=== PATIENT | male | born 1950 | race Caucasian/White ===

== ENCOUNTER → 2016-06-07 | Outpatient (REF) | payer BC ==
[~2016-06-07] MED LIST: /AUGM875TA; ACET65TA; CLOTRIMAZOLE 1%; IBUP800T; LASI20TA; LEVA750T; VASO5TAB; VICO5TAB; [UNRECOGNIZED DRUG - OTHER]
[2016-06-07 13:50] LABS: ALBUMIN 3.9 GM/DL (3.2-5.2); ALBUMIN/GLOBULIN RATIO 1.63 (1.00-1.93); ALKALINE PHOSPHATASE 84 U/L (45-117); ALT/SGPT 31 U/L (12-78); ANION GAP 7 MEQ/L (8-16); AST/SGOT 17 U/L (15-37); BILIRUBIN,TOTAL 0.9 MG/DL (0.2-1.0); BLOOD UREA NITROGEN 26 MG/DL (7-18); CALCIUM LEVEL 8.4 MG/DL (8.8-10.2); CARBON DIOXIDE LEVEL 30 MEQ/L (21-32); CHLORIDE LEVEL 104 MEQ/L (98-107); CREATININE FOR GFR 1.09 MG/DL (0.70-1.30); GLOMERULAR FILTRATION RATE > 60.0 (>49); GLUCOSE, FASTING 151 MG/DL (80-110); POTASSIUM SERUM 4.5 MEQ/L (3.5-5.1); SODIUM LEVEL 141 MEQ/L (136-145); TOTAL PROTEIN 6.3 GM/DL (6.4-8.2)
== END ==
LOC: M SFHCPLAZ 10:55
PROVIDERS: ATTEND Family Medicine
DX: E11.9 Type 2 diabetes mellitus without complications (principal)

== ENCOUNTER 2016-09-08 19:52 | Inpatient (IN) | payer BC, SELFPAY ==
[~2016-09-08] VITALS: Ht 188 cm; Wt 135.2 kg
[2016-09-08] MEDS ORDERED: BRIM1OPD OU (20:28)
[2016-09-08] MEDS ORDERED: ALBU17IN INH (20:28)
[2016-09-08] MEDS ORDERED: BREO1INH INH (20:28)
[2016-09-08] MEDS ORDERED: LISI20TA3 PO (20:28)
[2016-09-08] MEDS ORDERED: METF500T4 PO (20:28)
[2016-09-08] MEDS ORDERED: FLOM5CAP PO (20:28)
[2016-09-08] MEDS ORDERED: SIMV20TA2 PO (20:28)
[2016-09-08] MEDS ORDERED: MELO15TA4 PO (20:28)
[2016-09-08] MEDS ORDERED: BIMA01SOL OU (20:28)
[2016-09-08] MEDS: LATANOPROST 0.005% OPHTH SOLN 2.5 ML OU SCH (21:00)
[2016-09-08] MEDS: BRIMONIDINE 0.1% OPHTH SOLN 5 ML OU SCH (21:00)
[2016-09-08] MEDS ORDERED: methylPREDNISolone INJ 125 MG/2 ML VIAL (J2930) IV ONE (21:15)
[2016-09-08] MEDS ORDERED: NS 1,000 ML IV ONE (21:15)
[2016-09-08 21:23] LABS: BASO # 0.2 K/mm3 (0.0-0.2); BASO % 1.7 % (0.0-1.0); EOS # 0.1 K/mm3 (0.0-0.50); EOS % 0.7 % (0.0-3.0); LARGE UNSTAINED CELL # 0.3 K/mm3 (0.0-0.4); LARGE UNSTAINED CELL % 3.3 % (0.0-4.0); LYMPH # 1.3 K/mm3 (1.5-4.5); LYMPH % 13.8 % (24.0-44.0); MEAN CORPUSCULAR HEMOGLOBIN 30.9 pg (27.0-33.0); MEAN CORPUSCULAR HGB CONC 34.1 g/dl (32.0-36.5); MEAN CORPUSCULAR VOLUME 90.8 fl (80.0-96.0); MONO # 0.7 K/mm3 (0.0-0.8); MONO % 7.8 % (0.0-5.0); NEUTROPHILS # 6.9 K/mm3 (1.8-7.7); NEUTROPHILS % 72.8 % (36.0-66.0); PLATELET COUNT, AUTOMATED 220 k/mm3 (150-450); RED CELL DISTRIBUTION WIDTH 12.4 % (11.5-14.5); WHITE BLOOD COUNT 9.5 K/mm3 (4.0-10.0)
[2016-09-08] MEDS ORDERED: MELO7.5T6 PO (21:29)
[2016-09-08] MEDS ORDERED: VITA-130 PO (21:30)
[2016-09-08] MEDS ORDERED: VITMTA PO (21:30)
[2016-09-08] MEDS ORDERED: CALC600T21 PO (21:30)
[2016-09-08] MEDS ORDERED: ASPI81TA21 PO (21:30)
[2016-09-08 21:33] LABS: ANION GAP 7 MEQ/L (8-16); BLOOD UREA NITROGEN 14 MG/DL (7-18); CALCIUM LEVEL 9.2 MG/DL (8.8-10.2); CARBON DIOXIDE LEVEL 32 MEQ/L (21-32); CHLORIDE LEVEL 99 MEQ/L (98-107); CREATININE FOR GFR 1.06 MG/DL (0.70-1.30); GLOMERULAR FILTRATION RATE > 60.0 (>49); GLUCOSE, FASTING 114 MG/DL (80-110); POTASSIUM SERUM 4.2 MEQ/L (3.5-5.1); SODIUM LEVEL 138 MEQ/L (136-145)
[2016-09-08 21:52] LABS: ABG BASE EXCESS 1.1 (-2.0-2.0); ABG HCO3 23.9 MEQ/L (22.0-26.0); ABG PARTIAL PRESSURE CO2 32.7 mmHg (35.0-45.0); ABG PARTIAL PRESSURE O2 106.3 mmHg (75.0-100.0); ABG STANDARD HCO3 25.4 MEQ/L (22.0-26.0); ABG TOTAL CO2 24.9 MEQ/L (23.0-31.0); ABG pH (ARTERIAL) 7.481 UNITS (7.350-7.450)
[2016-09-08] MEDS: IPRATROPIUM 0.5MG/ALBUTEROL 2.5MG INH SOL UD 3ML (DUONEB)(J7620) NEB SCH ×2 (21:57→22:07)
[2016-09-08] MEDS ORDERED: ACETAMINOPHEN TAB 650MG DOSE (2X325MG) PO ONE (22:30)
[2016-09-08] MEDS ORDERED: PIPERACILLIN/TAZOBACTAM SOD 3.375 GM in D5W MINI-BAG PLUS 50 ML IV ONE (23:15)
[2016-09-09] MEDS ORDERED: ACETAMINOPHEN TAB 650MG DOSE (2X325MG) PO PRN (01:00)
[2016-09-09] MEDS ORDERED: ALBUTEROL 90 MCG/ACT 8GM HFA INHALER INH PRN (01:00)
--- NOTE | 2016-09-09 02:02 | HPEPDOC ---
General Date of Admission Sep 09, 2016 at 00:52 Primary Care Physician: Senthil Bach DO Resident Attending Physician: FRANSICO DOWNING MD Chief Complaint The patient is a 66-year-old male admitted with a reason for visit of Atrial Flutter/Hypoxia/Lobar Pneumonia. History of Present Illness 66-year-old male, history of COPD not on home oxygen, diabetes mellitus, hypertension. Glaucoma presented with shortness of breath. Shortness of breath for last 2 days associated with fever, chills, cough. No diarrhea or constipation. No hematuria or dysuria. The no open wound. No weight loss, diaphoresis, night sweats, no travel history. No sick contact Home Medications Scheduled (Lisinopril/Hydrochlorothi 20-25 mg) 1 Tab Tab, 1 TAB PO DAILY, (Reported) Ascorbic Acid (Vitamin C) 500 Mg Tab, 500 MG PO DAILY, (Reported) Aspirin (Aspir-Low) 81 Mg Tab, 81 MG PO DAILY, (Reported) Bimatoprost (Lumigan) 50 Drop/2.5 Ml Halina, 1 DROP OU QHS, (Reported) Brimonidine Tartrate 0.1% (Alphagan P) 100 Drop/5 Ml Soln, 1 DROP OU BID, ( Reported) Calcium Carbonate (Calcium) 600 Mg Tab, 600 MG PO DAILY, (Reported) Fluticasone/Vilanterol (Breo Ellipta 100-25 Mcg/INH) 1 Inh Inh, 1 PUFF INH DAILY , (Reported) Meloxicam (Meloxicam) 7.5 Mg Tab, 7.5 MG PO QPM, (Reported) TAKES WITH DINNER Metformin Hydrochloride (Metformin HCl ER) 500 Mg Tab, 2,000 MG PO QPM, ( Reported) TAKES WITH DINNER Multivitamins *[facility] STOCKED* (Thera M Plus *[facility] STOCKED*) 1 Tab Tab, 1 TAB PO DAILY, (Reported) Simvastatin (Simvastatin) 20 Mg Tab, 20 MG PO QHS, (Reported) Tamsulosin Hydrochloride (Flomax) 0.4 Mg Cap, 0.4 MG PO QPM, (Reported) TAKES WITH DINNER Scheduled PRN Albuterol Sulfate (Ventolin Hfa) 200 Puff/8 Gm Aers, 2 PUFFS INH Q4H PRN for WHEEZING, (Reported) Allergies Coded Allergies: Latex (Verified Allergy, Mild, rash, 09/08/16) Vancomycin (Unverified Allergy, Mild, RASH, 09/08/16) Past Medical History Medical History COPD, diabetes mellitus, hypertension, glaucoma Surgical History None Family History Significant Family History: No pertinent family hx Social History * Smoker: Denies Alcohol: Denies Drugs: denies Recent Travel/Sick Contacts: Denies: Recent travel, Recent sick contacts Psychosocial History: No pertinent psych hx Review of Symptoms Constitutional: Reports: Chills, Fever, Denies: Night Sweats Eyes: Denies: Pain, Vision change ENT: Denies: Head Aches, Ear Pain, Dysphagia Skin: Denies: Rash, Lesions, Breakdown Pulmonary: Reports: Dyspnea, Cough Cardiovascular: Denies: Chest Pain, Palpitations, Orthopnea, Paroxysmal Noc. Dyspnea, Lt Headedness Gastrointestinal: Denies: Nausea, Vomiting, Abdominal Pain, Diarrhea Genitourinary: Denies: Dysuria, Frequency, Incontinence, Retention Hematologic: Denies: Bruising, Bleeding Excessively Musculoskeletal: Denies: Neck Pain, Back Pain, Joint Pain, Muscle Pain, Spasms Neurological: Denies: Weakness, Numbness, Change in speech, Confusion Psych: Reports: Mood Normal, Denies: Depression, Memory Issues Physical Examination General Exam: Positive: Alert, Moderate Distress Eye Exam: Positive: PERRLA, Conjunctiva & lids normal, EOMI, Negative: Sclera icteric ENT Exam: Positive: Atraumatic, Mucous membr. moist/pink, Pharynx Normal Neck Exam: Positive: Supple, Negative: JVD, thyromegaly Chest Exam: Positive: Rhonchi, Wheezing, Diminished Heart Exam: Positive: Rate Normal, Regular Rhythm, Normal S1, Normal S2, Negative: Murmurs, Rubs Telemetry: Positive: No significant arrhythmia Abdomen Exam: Positive: Normal bowel sounds, Soft, Negative: Tenderness, Hepatospenomegaly Extremity Exam: Positive: Normal pulses, Negative: Clubbing, Cyanosis, Edema Skin Exam: Positive: Nl turgor and temperature, Negative: Breakdown, Lesion Neuro Exam: Positive: Normal Gait, Normal Speech, Cranial Nerves 3-12 NL, Reflexes 2+ Psych Exam: Positive: Mental status NL, Mood NL, Oriented x 3 Vital Signs Vital Signs Date Time Temp Pulse Resp B/P (MAP) Pulse Ox O2 Delivery O2 Flow Rate FiO2 09/09/16 00:37 20 93 Nasal Cannula 3.0 09/09/16 00:28 98.6 09/09/16 00:21 102 Laboratory Data Labs 24H Laboratory Tests 2 09/08/16 20:19: White Blood Count 9.5, Red Blood Count 4.85, Hemoglobin 15.0, Hematocrit 44.0, Mean Corpuscular Volume 90.8, Mean Corpuscular Hemoglobin 30.9, Mean Corpuscular Hemoglobin Concent 34.1, Red Cell Distribution Width 12.4, Platelet Count 220, Neutrophils (%) (Auto) 72.8H, Lymphocytes (%) (Auto) 13.8L, Monocytes (%) (Auto) 7.8H, Eosinophils (%) (Auto) 0.7, Basophils (%) (Auto) 1.7H , Neutrophils # (Auto) 6.9, Lymphocytes # (Auto) 1.3L, Monocytes # (Auto) 0.7, Eosinophils # (Auto) 0.1, Basophils # (Auto) 0.2, Large Unclassified Cells % 3.3 , Large Unclassified Cells # 0.3, Anion Gap 7L, Glomerular Filtration Rate > 60.0, Blood Urea Nitrogen 14, Creatinine 1.06, Sodium Level 138, Potassium Level 4.2, Chloride Level 99, Carbon Dioxide Level 32, Calcium Level 9.2, Total Creatine Kinase 294, Creatine Kinase MB 4.1H, Creatine Kinase MB Relative Index 1.39, Troponin I 0.03, B-Type Natriuretic Peptide 61.1 09/08/16 21:46: Blood Gas Bicarbonate Standard 25.4, Arterial Blood pH 7.481H, Arterial Blood Partial Pressure CO2 32.7L, Arterial Blood Partial Pressure O2 106.3H, Arterial Blood Total CO2 24.9, Arterial Blood HCO3 23.9, Arterial Blood Base Excess 1.1, Arterial Blood Oxygen Saturation 98.0 CBC/BMP Laboratory Tests 09/08/16 20:19 Red Blood Count 4.85, Mean Corpuscular Volume 90.8, Mean Corpuscular Hemoglobin 30.9, Mean Corpuscular Hemoglobin Concent 34.1, Red Cell Distribution Width 12.4 , Neutrophils (%) (Auto) 72.8 H, Lymphocytes (%) (Auto) 13.8 L, Monocytes (%) ( Auto) 7.8 H, Eosinophils (%) (Auto) 0.7, Basophils (%) (Auto) 1.7 H, Neutrophils # (Auto) 6.9, Lymphocytes # (Auto) 1.3 L, Monocytes # (Auto) 0.7, Eosinophils # (Auto) 0.1, Basophils # (Auto) 0.2, Calcium Level 9.2, Total Creatine Kinase 294 Microbiology Microbiology 09/09/16 Blood Culture, Received Pending 09/08/16 Blood Culture, Received Pending Assessment/Plan 66-year-old male, history of COPD, hypertension, glaucoma, presented with the shortness of breath for past 2 days, likely due to COPD exacerbation Problems (1) Atrial flutter Status: Acute Problem Text: Rate controlled with the beta gisselle chest to_1, and day Goldenson with aspirin. We will get cardiology consult by day team hospitalist tomorrow (2) Lobar pneumonia Status: Acute Problem Text: The start IV Rocephin and azithromycin (3) Hypoxia Status: Acute Problem Text: Due to COPD exacerbation. Continue with oxygen, DuoNeb and Solu- Medrol 40 mg IV every 6 Plan / VTE VTE Prophylaxis Ordered?: Yes Plan Diet: Continue Current Activity: Continue Current Anticipated Discharge: Home LI LILLY MD Sep 09, 2016 02:01
[2016-09-09 02:05] VITALS: BP 122/75
[2016-09-09] MEDS ORDERED: DEXTROSE 50% 50 ML SYRINGE IV PRN (02:30)
[2016-09-09] MEDS ORDERED: GLUCAGON FOR INJ 1 MG VIAL (J1610) SC PRN (02:30)
[2016-09-09] MEDS ORDERED: GLUCOSE 4 GM CHEW TABLET PO PRN (02:30)
[2016-09-09] MEDS: METOPROLOL TART 25 MG TABLET PO SCH ×3 (03:00→20:48)
[2016-09-09] MEDS: SIMVASTATIN 20 MG TAB PO SCH ×2 (03:00→20:46)
[2016-09-09] MEDS: AZITHROMYCIN INJ 500 MG, VIAL MATE ADAPTER 1 EACH in D5W 250 ML IV SCH (03:00)
[2016-09-09] MEDS: methylPREDNISolone INJ 40 MG/1 ML VIAL (J2920) IV SCH ×4 (03:00→21:23)
[2016-09-09] MEDS: TAMSULOSIN 0.4 MG CAP PO SCH ×2 (03:00→17:19)
[2016-09-09] MEDS: HumaLOG INSULIN (NovoLOG) PER UNIT SC SCH ×5 (03:02→20:46)
[2016-09-09] MEDS ORDERED: SLF 3 ML SYR IV PRN (03:45)
[2016-09-09 04:24] VITALS: BP 137/88
[2016-09-09] MEDS: cefTRIAXone SOD 1 GM in D5W MINI-BAG PLUS 50 ML IV SCH (05:32)
[2016-09-09] MEDS: SLF 3 ML SYR IV SCH ×3 (05:32→21:24)
--- NOTE | 2016-09-09 07:31 | ECGEPIP ---
Stationary ECG Study [facility] - ED Test Date: 2016-09-08 Pat Name: TRACIE LOZA Department: Room: [place] [address] Gender: M Actuarial Technician: daniel : 1950 Requested By: CYN Kim Order Number: [id number] Reading MD: Darnell Pepe Measurements Intervals [place] Rate: 121 P: [place]: 0 QRS: 63 QRSD: 105 T: 26 QT: 279 QTc: 397 Interpretive Statements ATRIAL FLUTTER WITH RAPID VENTRICULAR RESPONSE NO PRIORS Electronically Signed On 09-09-2016 7:30:42 EDT by Darnell Pepe
[2016-09-09 07:35] VITALS: BP 131/74
[2016-09-09] MEDS: MULTIVITAMINS/MINERALS THERAP 1 TAB PO SCH (08:20)
[2016-09-09] MEDS: ASCORBIC ACID 500 MG TAB PO SCH (08:20)
[2016-09-09] MEDS: ASPIRIN 81 MG ENTERIC TAB PO SCH (08:20)
[2016-09-09] MEDS: BRIMONIDINE 0.1% OPHTH SOLN 5 ML OU SCH ×2 (08:21→20:45)
[2016-09-09] MEDS: ADVAIR DISKUS 250/50 INH PWD INH SCH ×2 (09:00→20:20)
--- NOTE | 2016-09-09 09:15 | REP ---
CHEST PA AND LATERAL: 09/08/2016. COMPARISON: 06/06/2014, 06/18/2010. CLINICAL HISTORY: Dyspnea, cough. FINDINGS: Two views show the lungs well inflated. There is an old granuloma in the right mid lung zone. Some right lower lobe infrahilar patchy infiltrate or atelectasis is noted. Some basilar fibrotic changes are seen. I see no definite effusion or lateral pleural thickening. No apical scarring or pneumothorax. Heart not enlarged. Pulmonary arteries are mildly prominent. There are calcified nodes at the right hilum. Airway intact. Aorta mildly tortuous but normal for age. Bony thorax shows no compression deformity. IMPRESSION: 1. Patchy right base atelectasis or infiltrate in the lower lobe without pleural effusion or dense consolidation with air bronchograms. 2. No cardiomegaly or edema. There is old granulomatous disease. Signed by Jesse Espinosa MD 09/09/2016 10:52 A
[2016-09-09] MEDS: IPRATROPIUM 0.5MG/ALBUTEROL 2.5MG INH SOL UD 3ML (DUONEB)(J7620) NEB SCH ×4 (10:23→22:25)
[2016-09-09 12:00] VITALS: BP 138/77
--- NOTE | 2016-09-09 14:26 | IPNPDOC ---
Text Note Date of Service The patient was seen on 09/09/16. NOTE Subjective: Patient is a 66 year old male with a PMHx of COPD (not on home O2), NIDDM2, HTN and Glaucoma who presented to the ER with complaints of shortness of brath for 2 days duration. He notes that he has been having associated productive cough. He did note fever and chills at home. He was admitted for COPD exacerbation and was placed on telemetry. Patient was seen and examined at the bedside. Currently he notes improvement in his breathing. He denies any chest pain or palpitations. Denies any nausea, vomiting or sweating. Objective: Vitals (See below) General: Lying in bed, no acute distress, comfortable, AAOx3 HEENT: NC, AT CVS: Regular rate, +S1S2 Lungs: Fair air entry b/l, mild expiratory wheezing Abdomen: Soft, ND, NT, +BSx4 Extremities: +PPx4, - Edema, - Calf tenderness Assessment and plan: 1. Shortness of breath - likely 2/2 acute COPD exacerbation and community acquired pneumonia - Presented with shortness of breath, productive cough and wheezing - Physical this morning revealed expiratory wheezing - Labs unrevealing - CXR 09/09: patchy opacity at RLL - s/p Solumedrol loading - c/w Ceftriaxone, Azithromycin (Day #1) and Solumedrol - c/w Duoneb PRN and Advair 2. Possible atrial flutter - Noted to have flutter on initial EKG - No reported chest pain, palpitations, nausea or vomiting - Physical reveals controlled rate - Troponin trended; no elevation - s/p Diltiazem in ER - Will c/w telemetry monitoring - Will repeat EKG - c/w Metoprolol 25 BID - Will start Eliquis 5mg PO BID 3. NIDDM2 - c/w ISS 4. HTN - BP well controlled - c/w Lisinopril and HCTZ with holding parameters 5. DLP - c/w Simvastatin 6. BPH - c/w Tamsulosin 7. Glaucoma - allow home medication use 8. GI prophylaxis - will start Protonix 9. DVT prophylaxis - will start Eliquis VS,Fishbone, I+O VS, Fishbone, I+O Laboratory Tests 09/08/16 20:19 Red Blood Count 4.85, Mean Corpuscular Volume 90.8, Mean Corpuscular Hemoglobin 30.9, Mean Corpuscular Hemoglobin Concent 34.1, Red Cell Distribution Width 12.4 , Neutrophils (%) (Auto) 72.8 H, Lymphocytes (%) (Auto) 13.8 L, Monocytes (%) ( Auto) 7.8 H, Eosinophils (%) (Auto) 0.7, Basophils (%) (Auto) 1.7 H, Neutrophils # (Auto) 6.9, Lymphocytes # (Auto) 1.3 L, Monocytes # (Auto) 0.7, Eosinophils # (Auto) 0.1, Basophils # (Auto) 0.2, Calcium Level 9.2, Total Creatine Kinase 294 Vital Signs Date Time Temp Pulse Resp B/P (MAP) Pulse Ox O2 Delivery O2 Flow Rate FiO2 09/09/16 12:00 97.2 72 18 138/77 (97) 97 Room Air 09/09/16 03:15 1.0 FRANSICO DOWNING MD Sep 09, 2016 14:26
[2016-09-09] MEDS ORDERED: APIXABAN 5 MG TAB (ELIQUIS) PO ONE (15:30)
[2016-09-09] MEDS: LISINOPRIL 20 MG TAB PO SCH (15:49)
[2016-09-09] MEDS: PANTOPRAZOLE 40MG TAB (PROTONIX) PO SCH (15:49)
[2016-09-09] MEDS: hydroCHLOROthiazide 12.5 MG CAPSULE PO SCH (15:50)
[2016-09-09 16:00] VITALS: BP 142/80
[2016-09-09 16:00] LABS: FREE T4 1.18 NG/DL (0.76-1.46)
[2016-09-09] MEDS: LATANOPROST 0.005% OPHTH SOLN 2.5 ML OU SCH (20:44)
[2016-09-09 20:50] VITALS: BP 115/76
[2016-09-10 00:56] VITALS: BP 113/60
--- NOTE | 2016-09-10 01:15 | ECGEPIP ---
Stationary ECG Study [facility] Test Date: 2016-09-09 Pat Name: TRACIE LOZA Department: Room: [place] [address] Gender: M Area Counselor: JESUS : 1950 Requested By: FRANSICO DOWNING Order Number: [id number] Reading MD: Buck Wan Measurements Intervals [place] Rate: 77 P: [place]: 0 QRS: 37 QRSD: 104 T: 70 QT: 371 QTc: 421 Interpretive Statements ATRIAL FLUTTER/TACHYCARDIA ABNORMAL RHYTHM ECG Last tracing on 09/08/2016 at 20:53:26, no significant changes Electronically Signed On 09-10-2016 1:15:33 EDT by Buck Wan
[2016-09-10] MEDS: IPRATROPIUM 0.5MG/ALBUTEROL 2.5MG INH SOL UD 3ML (DUONEB)(J7620) NEB SCH ×6 (03:34→23:12)
[2016-09-10 04:43] VITALS: BP 133/76
[2016-09-10] MEDS: AZITHROMYCIN INJ 500 MG, VIAL MATE ADAPTER 1 EACH in D5W 250 ML IV SCH (04:45)
[2016-09-10] MEDS: methylPREDNISolone INJ 40 MG/1 ML VIAL (J2920) IV SCH ×3 (04:45→21:04)
[2016-09-10 05:05] LABS: MEAN CORPUSCULAR VOLUME 91.1 fl (80.0-96.0); RED CELL DISTRIBUTION WIDTH 12.5 % (11.5-14.5); WHITE BLOOD COUNT 12.5 K/mm3 (4.0-10.0)
[2016-09-10 05:24] LABS: ALBUMIN 3.3 GM/DL (3.2-5.2); ALKALINE PHOSPHATASE 88 U/L (45-117); ALT/SGPT 24 U/L (12-78); ANION GAP 6 MEQ/L (8-16); AST/SGOT 15 U/L (15-37); BILIRUBIN,TOTAL 0.5 MG/DL (0.2-1.0); CALCIUM LEVEL 8.5 MG/DL (8.8-10.2); CARBON DIOXIDE LEVEL 29 MEQ/L (21-32); CHLORIDE LEVEL 104 MEQ/L (98-107); GLOMERULAR FILTRATION RATE > 60.0 (>49); GLUCOSE, FASTING 249 MG/DL (80-110); POTASSIUM SERUM 4.1 MEQ/L (3.5-5.1); SODIUM LEVEL 139 MEQ/L (136-145); TOTAL PROTEIN 6.6 GM/DL (6.4-8.2)
[2016-09-10 05:44] LABS: BLOOD UREA NITROGEN 30 MG/DL (7-18)
[2016-09-10] MEDS: SLF 3 ML SYR IV SCH ×3 (06:00→21:05)
[2016-09-10] MEDS: cefTRIAXone SOD 1 GM in D5W MINI-BAG PLUS 50 ML IV SCH (06:11)
[2016-09-10] MEDS: ADVAIR DISKUS 250/50 INH PWD INH SCH ×2 (07:08→20:26)
[2016-09-10 08:00] VITALS: BP 119/58
[2016-09-10] MEDS: MULTIVITAMINS/MINERALS THERAP 1 TAB PO SCH (08:30)
[2016-09-10] MEDS: HumaLOG INSULIN (NovoLOG) PER UNIT SC SCH ×4 (08:30→21:04)
[2016-09-10] MEDS: APIXABAN 5 MG TAB (ELIQUIS) PO SCH ×2 (08:31→21:05)
[2016-09-10] MEDS: PANTOPRAZOLE 40MG TAB (PROTONIX) PO SCH (08:31)
[2016-09-10] MEDS: LISINOPRIL 20 MG TAB PO SCH (08:31)
[2016-09-10] MEDS: hydroCHLOROthiazide 12.5 MG CAPSULE PO SCH (08:31)
[2016-09-10] MEDS: ASCORBIC ACID 500 MG TAB PO SCH (08:31)
[2016-09-10] MEDS: ASPIRIN 81 MG ENTERIC TAB PO SCH (08:31)
[2016-09-10] MEDS: METOPROLOL TART 25 MG TABLET PO SCH ×2 (08:31→21:05)
[2016-09-10] MEDS: BRIMONIDINE 0.1% OPHTH SOLN 5 ML OU SCH ×2 (08:32→21:05)
[2016-09-10] MEDS ORDERED: ELIQ5TAB PO (10:09)
[2016-09-10 12:00] VITALS: BP 138/74
--- NOTE | 2016-09-10 12:12 | ECHO ---
DATE OF PROCEDURE: 09/09/2016 DATE OF : 1950 AGE: 66 REFERRING PROVIDER: Dr. Octaviano Acosta PATIENT LOCATION: Room 3211. REASON FOR ECHOCARDIOGRAM: Shortness of breath, abnormal EKG. 2D MEASUREMENTS: IVS: 1.0 cm LV: 5.4 cm LVPW: 1.0 cm LA: 4.7 cm Aorta: 3.3 cm RV: 3.6 cm IVC: 2.7 cm DOPPLER MEASUREMENTS: Peak velocity across the aortic valve: 1.6 m/s Maximum tricuspid valve velocity: 2.0 m/s 2D COMMENTS: 1. Technically limited study due to poor acoustic window. 2. The ventricular size is normal as well as left ventricular wall thickness. Left ventricular systolic ejection fraction appeared to be normal with a left ventricular ejection fraction (LVEF) estimated at 55-60%. 3. Mildly enlarged left atrium. Normal right atrium in size. Normal right ventricle. There was an echogenic structure noted in the right atrium from unclear etiology, seen in limited views. 4. The atrial septum appeared to be normal without evidence of defect or shunt. 5. Normal aortic root. 6. No pericardial effusion seen. 7. Minimally calcified aortic valve with normal leaflet excursion. Normal mitral valve and tricuspid valve. The pulmonic valve and proximal pulmonary artery branches were not well visualized. 8. The inferior vena cava was mildly enlarged; central venous pressure might be elevated. DOPPLER: It detects trace mitral regurgitation, mild tricuspid regurgitation. IMPRESSION: 1. Normal global left ventricular systolic function. Assessment of the left ventricular diastolic function was limited in view of the underlying atrial flutter. 2. Aortic valve sclerosis without any stenosis or significant aortic regurgitation. 3. Isolated mildly dilated left atrium. There is probably trace mitral regurgitation. 4. Mild tricuspid regurgitation with a normal pulmonary artery systolic pressure. 5. The inferior vena cava (IVC) was mildly enlarged; central venous pressure might be elevated. 6. There was an echogenic structure in the right atrium in limited views and for this reason, I will recommend a limited echocardiogram with focus on the right atrium. MTDD
--- NOTE | 2016-09-10 12:34 | IPNPDOC ---
Text Note Date of Service The patient was seen on 09/10/16. NOTE Subjective: Patient is a 66 year old male with a PMHx of COPD (not on home O2), NIDDM2, HTN and Glaucoma who presented to the ER with complaints of shortness of brath for 2 days duration. He notes that he has been having associated productive cough. He did note fever and chills at home. He was admitted for COPD exacerbation and was placed on telemetry. Patient was seen and examined at the bedside. He notes that his breathing has improved, but not at baseline yet. Denies chest pain or palpitations. Objective: Vitals (See below) General: Lying in bed, no acute distress, comfortable, AAOx3 HEENT: NC, AT CVS: Regular rate, +S1S2 Lungs: Fair air entry b/l, mild expiratory wheezing Abdomen: Soft, ND, NT, +BSx4 Extremities: +PPx4, - Edema, - Calf tenderness Assessment and plan: 1. Shortness of breath - likely 2/2 acute COPD exacerbation and community acquired pneumonia - Presented with shortness of breath, productive cough and wheezing - Physical this morning revealed expiratory wheezing - Labs unrevealing - CXR 09/09: patchy opacity at RLL - s/p Solumedrol loading - c/w Ceftriaxone and Azithromycin (Day #2) - c/w Solumedrol, Duoneb PRN and Advair - Will begin to decrease dose of Solumedrol today 2. Atrial flutter - EKG on initial EKG was atrial flutter; repeat EKG reveals similar findings - No reported chest pain, palpitations, nausea or vomiting - Physical reveals controlled rate - Troponin trended; no elevation - Thyroid function noted; ECHO pending - s/p Diltiazem in ER - c/w telemetry monitoring - c/w rate control with Metoprolol 25 BID and anticoagulation with 5mg PO BID 3. NIDDM2 - c/w ISS 4. HTN - BP well controlled - c/w Lisinopril and HCTZ with holding parameters 5. DLP - c/w Simvastatin 6. BPH - c/w Tamsulosin 7. Glaucoma - allow home medication use 8. GI prophylaxis - c/w Protonix 9. DVT prophylaxis - c/w Eliquis VS,Fishbone, I+O VS, Fishbone, I+O Laboratory Tests 09/10/16 04:38 Red Blood Count 4.30, Mean Corpuscular Volume 91.1, Mean Corpuscular Hemoglobin 31.0, Mean Corpuscular Hemoglobin Concent 34.0, Red Cell Distribution Width 12.5 , Calcium Level 8.5 L, Aspartate Amino Transf (AST/SGOT) 15, Alanine Aminotransferase (ALT/SGPT) 24, Alkaline Phosphatase 88, Total Bilirubin 0.5, Total Protein 6.6, Albumin 3.3 Vital Signs Date Time Temp Pulse Resp B/P (MAP) Pulse Ox O2 Delivery O2 Flow Rate FiO2 09/10/16 08:31 120 119/58 09/10/16 08:00 98.2 19 90 Room Air 09/09/16 03:15 1.0 I&O- Last 24 Hours up to 6 AM 09/10/16 05:59 Intake Total 1935 ml Output Total 1350 ml Balance 585 ml FRANSICO DOWNING MD Sep 10, 2016 12:34
[2016-09-10 16:00] VITALS: BP 131/90
[2016-09-10] MEDS: TAMSULOSIN 0.4 MG CAP PO SCH (17:10)
[2016-09-10 20:00] VITALS: BP 142/82
[2016-09-10] MEDS: LATANOPROST 0.005% OPHTH SOLN 2.5 ML OU SCH (21:05)
[2016-09-10] MEDS: SIMVASTATIN 20 MG TAB PO SCH (21:05)
[2016-09-11] VITALS: BP 128/77
[2016-09-11] MEDS: IPRATROPIUM 0.5MG/ALBUTEROL 2.5MG INH SOL UD 3ML (DUONEB)(J7620) NEB SCH ×5 (03:42→20:00)
[2016-09-11 04:00] VITALS: BP 151/88
[2016-09-11] MEDS: AZITHROMYCIN INJ 500 MG, VIAL MATE ADAPTER 1 EACH in D5W 250 ML IV SCH (04:07)
[2016-09-11] MEDS: methylPREDNISolone INJ 40 MG/1 ML VIAL (J2920) IV SCH (04:07)
[2016-09-11 05:25] LABS: MEAN CORPUSCULAR HEMOGLOBIN 30.2 pg (27.0-33.0); MEAN CORPUSCULAR HGB CONC 33.4 g/dl (32.0-36.5); MEAN CORPUSCULAR VOLUME 90.5 fl (80.0-96.0); RED CELL DISTRIBUTION WIDTH 12.5 % (11.5-14.5); WHITE BLOOD COUNT 12.7 K/mm3 (4.0-10.0)
[2016-09-11] MEDS: SLF 3 ML SYR IV SCH ×3 (05:36→20:26)
[2016-09-11] MEDS: cefTRIAXone SOD 1 GM in D5W MINI-BAG PLUS 50 ML IV SCH (05:36)
[2016-09-11 05:45] LABS: ALBUMIN 3.1 GM/DL (3.2-5.2); ALBUMIN/GLOBULIN RATIO 1.03 (1.00-1.93); ALKALINE PHOSPHATASE 78 U/L (45-117); ALT/SGPT 32 U/L (12-78); ANION GAP 4 MEQ/L (8-16); AST/SGOT 25 U/L (15-37); BILIRUBIN,TOTAL 0.5 MG/DL (0.2-1.0); BLOOD UREA NITROGEN 32 MG/DL (7-18); CARBON DIOXIDE LEVEL 28 MEQ/L (21-32); CHLORIDE LEVEL 105 MEQ/L (98-107); CREATININE FOR GFR 0.95 MG/DL (0.70-1.30); GLOMERULAR FILTRATION RATE > 60.0 (>49); GLUCOSE, FASTING 222 MG/DL (80-110); POTASSIUM SERUM 4.5 MEQ/L (3.5-5.1); SODIUM LEVEL 137 MEQ/L (136-145); TOTAL PROTEIN 6.1 GM/DL (6.4-8.2)
[2016-09-11] MEDS: ADVAIR DISKUS 250/50 INH PWD INH SCH ×2 (07:37→19:47)
[2016-09-11 08:00] VITALS: BP 152/74
[2016-09-11] MEDS: MULTIVITAMINS/MINERALS THERAP 1 TAB PO SCH (08:07)
[2016-09-11] MEDS: BRIMONIDINE 0.1% OPHTH SOLN 5 ML OU SCH ×2 (08:07→20:24)
[2016-09-11] MEDS: ASPIRIN 81 MG ENTERIC TAB PO SCH (08:07)
[2016-09-11] MEDS: METOPROLOL TART 25 MG TABLET PO SCH ×2 (08:08→20:24)
[2016-09-11] MEDS: LISINOPRIL 20 MG TAB PO SCH (08:08)
[2016-09-11] MEDS: APIXABAN 5 MG TAB (ELIQUIS) PO SCH ×2 (08:08→20:24)
[2016-09-11] MEDS: PANTOPRAZOLE 40MG TAB (PROTONIX) PO SCH (08:08)
[2016-09-11] MEDS: ASCORBIC ACID 500 MG TAB PO SCH (08:08)
[2016-09-11] MEDS: hydroCHLOROthiazide 12.5 MG CAPSULE PO SCH (08:08)
[2016-09-11] MEDS: HumaLOG INSULIN (NovoLOG) PER UNIT SC SCH ×4 (08:09→20:25)
[2016-09-11] MEDS: predniSONE 20 MG TAB PO SCH ×2 (10:02→20:24)
[2016-09-11 12:00] VITALS: BP 134/80
--- NOTE | 2016-09-11 12:05 | IPNPDOC ---
Text Note Date of Service The patient was seen on 09/11/16. NOTE Subjective: Patient is a 66 year old male with a PMHx of COPD (not on home O2), NIDDM2, HTN and Glaucoma who presented to the ER with complaints of shortness of brath for 2 days duration. He notes that he has been having associated productive cough. He did note fever and chills at home. He was admitted for COPD exacerbation and was placed on telemetry. Patient was seen and examined at the bedside. His breathing has improved and will be transitioned to prednisone oral today. He notes that his cough is resolving. Objective: Vitals (See below) General: Lying in bed, no acute distress, comfortable, AAOx3 HEENT: NC, AT CVS: Regular rate, +S1S2 Lungs: Fair air entry b/l, mild expiratory wheezing Abdomen: Soft, ND, NT, +BSx4 Extremities: +PPx4, - Edema, - Calf tenderness Assessment and plan: 1. Shortness of breath - likely 2/2 acute COPD exacerbation and community acquired pneumonia - Presented with shortness of breath, productive cough and wheezing - Physical again reveals mild wheezing; still has not received in inhaled therapy - Labs unrevealing - CXR 09/09: patchy opacity at RLL - s/p Solumedrol loading - c/w Ceftriaxone and Azithromycin (Day #3) - c/w Solumedrol, Duoneb PRN and Advair - Will transition over to prednisone PO today; will evaluate for possible discharge today 2. Atrial flutter - EKG on initial EKG was atrial flutter; repeat EKG reveals similar findings - No reported chest pain, palpitations, nausea or vomiting - Physical reveals controlled rate - Troponin trended; no elevation - Thyroid function noted; ECHO normal LV systolic function - s/p Diltiazem in ER - c/w telemetry monitoring - c/w rate control with Metoprolol 25 BID and anticoagulation with 5mg PO BID 3. Echogenic structure in the right atrium - ECHO revealed structure in right atrium that has warranted additional imaging - Will re-evaluate today - Will discuss with Cardiology that reads echocardiogram 4. NIDDM2 - c/w ISS 5. HTN - BP well controlled - c/w Lisinopril and HCTZ with holding parameters 6. DLP - c/w Simvastatin 7. BPH - c/w Tamsulosin 8. Glaucoma - allow home medication use 9. GI prophylaxis - c/w Protonix 10. DVT prophylaxis - c/w Eliquis VS,Fishbone, I+O VS, Fishbone, I+O Laboratory Tests 09/11/16 05:00 Red Blood Count 4.23 L, Mean Corpuscular Volume 90.5, Mean Corpuscular Hemoglobin 30.2, Mean Corpuscular Hemoglobin Concent 33.4, Red Cell Distribution Width 12.5, Calcium Level 8.0 L, Aspartate Amino Transf (AST/SGOT) 25, Alanine Aminotransferase (ALT/SGPT) 32, Alkaline Phosphatase 78, Total Bilirubin 0.5, Total Protein 6.1 L, Albumin 3.1 L Vital Signs Date Time Temp Pulse Resp B/P (MAP) Pulse Ox O2 Delivery O2 Flow Rate FiO2 09/11/16 08:08 90 150/70 09/11/16 08:00 98.0 19 92 Room Air 09/09/16 03:15 1.0 I&O- Last 24 Hours up to 6 AM 09/11/16 05:59 Intake Total 2830 ml Output Total 2625 ml Balance 205 ml FRANSICO DOWNING MD Sep 11, 2016 12:05
[2016-09-11 16:00] VITALS: BP 142/83
[2016-09-11] MEDS: TAMSULOSIN 0.4 MG CAP PO SCH (17:05)
--- NOTE | 2016-09-11 19:44 | ECHO ---
DATE OF PROCEDURE:09/11/2016 REFERRING PHYSICIAN: Dr. Chase Nash. INDICATION: Atrial flutter suspicion for right atrial thrombus. Based on prior echocardiogram. No dimensions were obtained. FINDINGS: This is very limited echocardiogram focusing on right atrium. This patient just had a full two-dimensional echocardiogram on September 09, and it raised the suspicion for possible echogenic structure in the right atrium. Based on limited images today, the structure is again visualized. Unfortunately, even though this was focused exam the visualization is rather limited and there appears to be mobile echodensity that is adjacent to lateral wall of the right atrium and some of it seems to be very close to the tricuspid valve. Unfortunately due to limited resolution, I can not be more specific than that. It seems to have a red light qualities. In my opinion, this most likely represents Chiari network, much less likely there is a possibility of thrombus vegetation. Tricuspid valve otherwise appears intact. Inferior vena cava is normal size today. No Doppler interrogation was performed. CONCLUSIONS: 1. Very limited echocardiogram. 2. Mobile thread-like echodensity in the right atrium in my opinion most likely representing Chiari network, less likely thrombus or vegetation. COMMENT: Subacute bacterial endocarditis (SBE) prophylaxis is not recommended. If high clinical suspicion for endocarditis, then transesophageal echocardiogram should be performed. If there is no or very low suspicion for bacterial endocarditis, I would not pursue any further evaluation. The patient is already anticoagulated for atrial flutter.
[2016-09-11 20:00] VITALS: BP 142/73
[2016-09-11] MEDS: LATANOPROST 0.005% OPHTH SOLN 2.5 ML OU SCH (20:24)
[2016-09-11] MEDS: SIMVASTATIN 20 MG TAB PO SCH (20:24)
[2016-09-12] VITALS: BP 146/64
[2016-09-12] MEDS: IPRATROPIUM 0.5MG/ALBUTEROL 2.5MG INH SOL UD 3ML (DUONEB)(J7620) NEB SCH ×4 (00:08→11:11)
[2016-09-12 04:00] VITALS: BP 128/67
[2016-09-12 05:14] LABS: MEAN CORPUSCULAR HEMOGLOBIN 30.4 pg (27.0-33.0); MEAN CORPUSCULAR HGB CONC 33.1 g/dl (32.0-36.5); RED CELL DISTRIBUTION WIDTH 12.4 % (11.5-14.5); WHITE BLOOD COUNT 11.4 K/mm3 (4.0-10.0)
[2016-09-12 05:34] LABS: ALBUMIN 3.3 GM/DL (3.2-5.2); ALBUMIN/GLOBULIN RATIO 1.03 (1.00-1.93); ALKALINE PHOSPHATASE 84 U/L (45-117); ALT/SGPT 35 U/L (12-78); ANION GAP 5 MEQ/L (8-16); AST/SGOT 14 U/L (15-37); BILIRUBIN,TOTAL 0.4 MG/DL (0.2-1.0); BLOOD UREA NITROGEN 31 MG/DL (7-18); CALCIUM LEVEL 7.9 MG/DL (8.8-10.2); CARBON DIOXIDE LEVEL 30 MEQ/L (21-32); CHLORIDE LEVEL 104 MEQ/L (98-107); CREATININE FOR GFR 1.01 MG/DL (0.70-1.30); GLOMERULAR FILTRATION RATE > 60.0 (>49); GLUCOSE, FASTING 248 MG/DL (80-110); POTASSIUM SERUM 4.3 MEQ/L (3.5-5.1); SODIUM LEVEL 139 MEQ/L (136-145); TOTAL PROTEIN 6.5 GM/DL (6.4-8.2)
[2016-09-12] MEDS: SLF 3 ML SYR IV SCH (06:06)
[2016-09-12] MEDS: cefTRIAXone SOD 1 GM in D5W MINI-BAG PLUS 50 ML IV SCH (06:07)
[2016-09-12] MEDS: ADVAIR DISKUS 250/50 INH PWD INH SCH (07:37)
[2016-09-12 07:55] VITALS: BP 127/84
[2016-09-12] MEDS ORDERED: AZITHROMYCIN 250 MG TAB PO ONE (09:00)
[2016-09-12] MEDS: HumaLOG INSULIN (NovoLOG) PER UNIT SC SCH ×2 (09:41→12:13)
[2016-09-12] MEDS: PANTOPRAZOLE 40MG TAB (PROTONIX) PO SCH (09:41)
[2016-09-12] MEDS: LISINOPRIL 20 MG TAB PO SCH (09:41)
[2016-09-12] MEDS: MULTIVITAMINS/MINERALS THERAP 1 TAB PO SCH (09:41)
[2016-09-12] MEDS: APIXABAN 5 MG TAB (ELIQUIS) PO SCH (09:41)
[2016-09-12 09:42] VITALS: BP 127/84
[2016-09-12] MEDS: METOPROLOL TART 25 MG TABLET PO SCH (09:42)
[2016-09-12] MEDS: predniSONE 20 MG TAB PO SCH (09:42)
[2016-09-12] MEDS: ASPIRIN 81 MG ENTERIC TAB PO SCH (09:42)
[2016-09-12] MEDS: ASCORBIC ACID 500 MG TAB PO SCH (09:43)
[2016-09-12] MEDS: hydroCHLOROthiazide 12.5 MG CAPSULE PO SCH (09:43)
[2016-09-12] MEDS: BRIMONIDINE 0.1% OPHTH SOLN 5 ML OU SCH (09:43)
[2016-09-12] MEDS ORDERED: AZIT500T2 PO (11:23)
[2016-09-12] MEDS ORDERED: CEFD300CAP FT (11:23)
[2016-09-12] MEDS ORDERED: PRED10TA PO (11:23)
[2016-09-12] MEDS ORDERED: METO25TAB PO (11:23)
[2016-09-12 11:44] VITALS: BP 132/89
[2016-09-12] MEDS ORDERED: ALBU83IN INH (14:02)
--- NOTE | 2016-09-12 16:29 | DSES ---
DATE OF ADMISSION: 09/09/2016 DATE OF DISCHARGE: 09/12/2016 ATTENDING PHYSICIAN: Dr. Chase Nash PRIMARY CARE PHYSICIAN: Dr. Ashish Guevara REFERRING PHYSICIAN: None. CONSULTING PHYSICIAN: None. CONDITION ON DISCHARGE: Stable. FINAL DIAGNOSES: 1. Shortness of breath likely secondary to acute chronic obstructive pulmonary disease (COPD) exacerbation and community-acquired pneumonia. 2. Atrial flutter. PROCEDURES: None. HISTORY OF PRESENT ILLNESS: The patient is a 66-year-old male with a past medical history of chronic obstructive pulmonary disease (COPD), not on home oxygen, [id number]-[id number] diabetes mellitus type 2, hypertension, glaucoma who presented to the emergency room (ER) with complaints of shortness of breath for two days duration. He notes that he has been having associated productive cough. He did note a fever and chills at home. He was admitted for COPD exacerbation and was placed on telemetry. HOSPITAL COURSE: 1. Shortness of breath, likely secondary to acute chronic obstructive pulmonary disease (COPD) exacerbation and community-acquired pneumonia. He presented with shortness of breath and productive cough with wheezing. Physical revealed wheezing initially. However, today his wheezing has resolved. Laboratories were unrevealing. Chest x-ray on 09/09/2016 reveals patchy infiltration of the right lower lobe. The patient was given a loading dose of Solu-Medrol in the emergency room and he was started on ceftriaxone and azithromycin. The patient was continued with those antibiotics throughout the hospital course. He was also continued with Solu-Medrol, DuoNeb as needed, and Advair. Upon discharge, the patient was transitioned to prednisone on a tapering basis and given a prescription for completion of antibiotic course with cefdinir and azithromycin. 2. Atrial flutter. EKG on initial presentation was atrial flutter. Repeat EKG revealed similar findings. No reported chest pain, palpitations, nausea or vomiting. Physical reveals controlled rate. Troponin was trended. No elevation. Thyroid function was noted. Echocardiogram was normal left ventricular systolic function. He is status post diltiazem in the emergency room (ER) and he was continued with telemetry monitoring. The patient was started on metoprolol 25 by mouth twice a day for rate control and anticoagulation with Eliquis 5 mg by mouth twice a day. 3. Echogenic structure in the right atrium was noted on initial echocardiogram and a subsequent quick-look study was acquired. Quick-look study did not reveal any what was a low likelihood for thrombus or any other structure and likely visualizing the lateral wall of the heart. I discussed this with Dr. Young who feels that it is not recommended to get a transesophageal echocardiogram unless endocarditis was suspected. However, at this time, endocarditis does not seem likely given his negative blood cultures and no febrile episodes. 4. Wjr-qehfphg-inodlbmpc diabetes mellitus type 2. Continue with insulin sliding scale. 5. Hypertension. Blood pressure remains well-controlled. Continue with lisinopril and hydrochlorothiazide with holding parameters. 6. Dyslipidemia. Continue with simvastatin. 7. Benign prostatic hypertrophy (BPH). Continue with tamsulosin. 8. Glaucoma. Allow home medication use. 9. Gastrointestinal (GI) prophylaxis. Continue with Protonix. 10. Deep vein thrombosis (DVT) prophylaxis. Continue with Eliquis. DISCHARGE MEDICATIONS: The patient is being discharged home with the following medication list: - albuterol two puff inhaled every four hours as needed for wheezing - ascorbic acid 500 mg by mouth daily - aspirin 81 mg by mouth daily - bimatoprost one drop in each eye at bedtime - brimonidine one drop in each eye twice a day - calcium carbonate 600 mg by mouth daily - Breo one puff inhaled daily - lisinopril/hydrochlorothiazide 20/25 one tablet by mouth daily - meloxicam 7.5 mg by mouth every evening - metformin 2000 mg by mouth every evening - multivitamins one tablet by mouth daily - simvastatin 20 mg by mouth at bedtime - tamsulosin 0.4 mg by mouth every evening New medications prescribed include: - albuterol 2.5 mg inhaled via nebulizer every four hours as needed for shortness of breath - Eliquis 5 mg by mouth twice a day, first 10 days are to be taken as directed - azithromycin 500 mg by mouth daily for the next three days - cefdinir 300 mg by mouth twice a day for the next three days - metoprolol 25 mg by mouth twice a day - prednisone to be taken as directed on a tapering basis DISCHARGE INSTRUCTIONS: The patient has been advised to followup with his primary care provider and pulmonary physicians within the next seven days. He has been advised to remain compliant with treatment plan and medications and return to the emergency room if he experiences any problems. TIME SPENT ON DISCHARGE: 35 minutes.
== END 2016-09-12 14:15 | disposition home or self-care (01) | DRG 139 ==
LOC: M ED 22:38 → M ED INP 09-09 00:52 → M PCU 09-09 01:58
PROVIDERS: ADMIT Internal Medicine; ATTEND Internal Medicine
DX: J18.9 Pneumonia, unspecified organism (principal); I48.92 Unspecified atrial flutter; I10 Essential (primary) hypertension; J44.1 Chronic obstructive pulmonary disease with (acute) exacerbation; E11.9 Type 2 diabetes mellitus without complications; H40.9 Unspecified glaucoma; E78.5 Hyperlipidemia, unspecified; N40.0 Benign prostatic hyperplasia without lower urinary tract symptoms; Z79.82 Long term (current) use of aspirin; Z79.899 Other long term (current) drug therapy; Z91.040 Latex allergy status; Z88.1 Allergy status to other antibiotic agents

== ENCOUNTER 2016-12-18 20:14 | Inpatient (IN) | payer BC ==
[~2016-12-18] VITALS: Ht 190.5 cm; Wt 138.2 kg
[~2016-12-18 20:14] MED LIST changes: +ALBU17IN INH; +ALBU83IN INH; +ASPI81TA21 PO; +AZIT500T2 PO; +BIMA01SOL OU; +BREO1INH INH; +BRIM1OPD OU; +CALC600T60 PO; +CEFD300CAP FT; +ELIQ5TAB PO; +FLOM5CAP PO; +LISI20TA3 PO; +MELO15TA4 PO; +MELO7.5T7 PO; +METF500T4 PO; +METO25TA4 PO; +PRED10TA2 PO; +SIMV20TA2 PO; +VITA500T PO; +VITMTA PO
[2016-12-18] MEDS ORDERED: FLEC25TA (20:32)
[2016-12-18] MEDS ORDERED: NS 500 ML IV ONE (21:15)
[2016-12-18] MEDS ORDERED: methylPREDNISolone INJ 125 MG/2 ML VIAL (J2930) IV ONE (21:15)
[2016-12-18 21:56] LABS: BASO # 0.1 10^3/uL (0.0-0.2); BASO % 0.3 % (0.0-1.0); EOS # 0.1 10^3/uL (0.0-0.50); EOS % 0.2 % (0.0-3.0); IMMATURE GRANULOCYTE % 0.8 % (0-0); LYMPH # 1.4 10^3/uL (1.5-4.5); LYMPH % 5.3 % (24.0-44.0); MEAN CORPUSCULAR HEMOGLOBIN 30.3 pg (27.0-33.0); MEAN CORPUSCULAR HGB CONC 33.6 g/dl (32.0-36.5); MEAN CORPUSCULAR VOLUME 90.1 fl (80.0-96.0); MONO % 6.9 % (0.0-5.0); NEUTROPHILS # 23.1 10^3/uL (1.8-7.7); NEUTROPHILS % 86.5 % (36.0-66.0); PLATELET COUNT, AUTOMATED 224 10^3/uL (150-450); WHITE BLOOD COUNT 26.8 10^3/uL (4.0-10.0)
[2016-12-18 22:02] LABS: MONO # 1.9 10^3/uL (0.0-0.8)
[2016-12-18] MEDS ORDERED: ELIQ5TAB PO (22:04)
[2016-12-18] MEDS ORDERED: CALC1TAB30 PO (22:04)
[2016-12-18] MEDS ORDERED: METO25TA4 PO (22:04)
[2016-12-18] MEDS ORDERED: FLEC50TA PO (22:04)
[2016-12-18] MEDS ORDERED: ALBU83IN INH (22:04)
[2016-12-18] MEDS ORDERED: cefTRIAXone SOD 1 GM in D5W 50 ML IV ONE (22:15)
[2016-12-18 22:20] LABS: ANION GAP 7 MEQ/L (8-16); BLOOD UREA NITROGEN 20 MG/DL (7-18); CALCIUM LEVEL 9.3 MG/DL (8.8-10.2); CARBON DIOXIDE LEVEL 31 MEQ/L (21-32); CHLORIDE LEVEL 98 MEQ/L (98-107); CREATININE FOR GFR 1.05 MG/DL (0.70-1.30); GLOMERULAR FILTRATION RATE > 60.0 (>49); GLUCOSE, FASTING 132 MG/DL (80-110); POTASSIUM SERUM 4.5 MEQ/L (3.5-5.1); SODIUM LEVEL 136 MEQ/L (136-145)
[2016-12-18] MEDS ORDERED: IPRATROPIUM 0.5MG/ALBUTEROL 2.5MG INH SOL UD 3ML (DUONEB)(J7620) NEB ONE (23:15)
[2016-12-18 23:23] VITALS: O2SAT 93
[2016-12-19] VITALS (7 sets, daily range): BP systolic 100–133; BP diastolic 62–83
[2016-12-19] MEDS ORDERED: VANCOMYCIN HCL 1,000 MG, VIAL MATE ADAPTER 1 EACH in D5W 250 ML IV SCH (01:00)
[2016-12-19] MEDS: methylPREDNISolone INJ 40 MG/1 ML VIAL (J2920) IV SCH ×3 (02:29→21:06)
[2016-12-19] MEDS ORDERED: PIPERACILLIN/TAZOBACTAM SOD 3.375 GM in D5W MINI-BAG PLUS 50 ML IV SCH (03:00)
[2016-12-19] MEDS: HEPARIN SOD (PORCINE) 5000 UNITS/ML VIAL SC SCH ×3 (05:17→14:00)
[2016-12-19] MEDS ORDERED: LINEZOLID 600 MG/300 ML IV SCH (06:00)
[2016-12-19] MEDS ORDERED: LINEZOLID 600 MG in APPROPRIATE DILUENT 1 EA IV SCH (06:00)
--- NOTE | 2016-12-19 06:31 | ECGEPIP ---
Stationary ECG Study [facility] - ED Test Date: 2016-12-18 Pat Name: TRACIE LOZA Department: Room: - Gender: M Business Account Executive: dave : 1950 Requested By: CYN Kim Order Number: [id number] Reading MD: Darnell Pepe Measurements Intervals [place] Rate: 142 P: -73 MD: 175 QRS: 62 QRSD: 105 T: 53 QT: 331 QTc: 509 Interpretive Statements ATRIAL FLUTTER WITH RVR AND OCCASIONAL PVC NONSPECIFIC ST & T-WAVE ABNORMALITY RATE CHANGE COMPARED TO 09/09/16 Electronically Signed On 12-19-2016 6:31:20 EDT by Darnell Pepe
--- NOTE | 2016-12-19 06:44 | HPEPDOC ---
General Date of Admission Dec 19, 2016 at 00:52 Primary Care Physician: Jeaneth Ramirez DO Attending Physician: ANDRES PICHARDO MD Chief Complaint The patient is a 66-year-old male admitted with a reason for visit of Lobar Pna. Source: Patient Exam Limitations: No limitations Severity: Moderate Associated Symptoms: Cough, Fever, Chills History of Present Illness 66-year-old male, history of atrial fibrillation, rate controlled with flecainide, Lopressor, and day, Colace and with Eliquis, diabetes mellitus type 2, controlled with metformin, presented to the emergency room for acute onset shortness of breath, fever, chills, body ache. On arrival to the emergency room. Patient was found to be tachycardic. WBC 26.8. Denies any chest pain, palpitation, leg edema. Recent travel sick contact. Denies any history of lightheadedness, dizziness. Home Medications Scheduled (Lisinopril/Hydrochlorothi 20-25 mg) 1 Tab Tab, 1 TAB PO DAILY, (Reported) (Calcium 500+D 500-200 mg-Unit) 1 Tab Tab, 1 TAB PO DAILY, (Reported) Apixaban Base (Eliquis) 5 Mg Tab, 5 MG PO BID, (Reported) Ascorbic Acid (Vitamin C) 500 Mg Tab, 500 MG PO DAILY, (Reported) Aspirin (Aspir-Low) 81 Mg Tab, 81 MG PO DAILY, (Reported) Bimatoprost (Lumigan) 50 Drop/2.5 Ml Halina, 1 DROP OU QHS, (Reported) Brimonidine Tartrate 0.1% (Alphagan P) 100 Drop/5 Ml Soln, 1 DROP OU BID, ( Reported) Flecainide Acetate (Flecainide Acetate) 50 Mg Tab, 50 MG PO BID, (Reported) Fluticasone/Vilanterol (Breo Ellipta 100-25 Mcg/INH) 1 Inh Inh, 1 PUFF INH DAILY , (Reported) Metformin Hydrochloride (Metformin HCl ER) 500 Mg Tab, 2,000 MG PO QPM, ( Reported) TAKES WITH DINNER Metoprolol Tartrate (Metoprolol Tartrate) 25 Mg Tab, 25 MG PO BID, (Reported) Multivitamins *[facility] STOCKED* (Thera M Plus *[facility] STOCKED*) 1 Tab Tab, 1 TAB PO DAILY, (Reported) Simvastatin (Simvastatin) 20 Mg Tab, 20 MG PO QHS, (Reported) Tamsulosin Hydrochloride (Flomax) 0.4 Mg Cap, 0.4 MG PO QPM, (Reported) TAKES WITH DINNER Scheduled PRN Albuterol Sulfate (Ventolin Hfa) 200 Puff/8 Gm Aers, 2 PUFFS INH Q4H PRN for SHORTNESS OF BREATH, (Reported) Albuterol Sulfate (Albuterol Sulfate) 2.5 Mg/3 Ml Nebu, 2.5 MG INH Q4H PRN for SHORTNESS OF BREATH, (Reported) Allergies Coded Allergies: Latex (Verified Allergy, Mild, rash, 09/08/16) Vancomycin (Unverified Allergy, Mild, RASH, 09/08/16) Past Medical History Medical History Atrial fibrillation, diabetes mellitus, BPH Surgical History None Family History Significant Family History: No pertinent family hx Social History * Smoker: Denies Alcohol: Denies Drugs: denies Recent Travel/Sick Contacts: Denies: Recent travel, Recent sick contacts Psychosocial History: No pertinent psych hx Review of Symptoms Constitutional: Reports: Chills, Fever, Night Sweats, Fatigue, Lethargy Eyes: Denies: Pain, Vision change ENT: Denies: Head Aches, Ear Pain, Dysphagia Skin: Denies: Rash, Lesions, Breakdown Pulmonary: Reports: Dyspnea, Cough Cardiovascular: Denies: Chest Pain, Palpitations, Orthopnea, Paroxysmal Noc. Dyspnea, Lt Headedness Gastrointestinal: Denies: Nausea, Vomiting, Abdominal Pain, Diarrhea Genitourinary: Denies: Dysuria, Frequency, Incontinence, Retention Hematologic: Denies: Bruising, Bleeding Excessively Musculoskeletal: Denies: Neck Pain, Back Pain, Joint Pain, Muscle Pain, Spasms Neurological: Denies: Weakness, Numbness, Change in speech, Confusion Psych: Reports: Mood Normal, Denies: Depression, Memory Issues Physical Examination General Exam: Positive: Alert, Moderate Distress Eye Exam: Positive: PERRLA, Conjunctiva & lids normal, EOMI, Negative: Sclera icteric ENT Exam: Positive: Atraumatic, Mucous membr. moist/pink, Pharynx Normal Neck Exam: Positive: Supple, Negative: JVD, thyromegaly Chest Exam: Positive: Rales, Rhonchi, Wheezing Heart Exam: Positive: Irregular Rhythm, Normal S1, Normal S2, Negative: Murmurs, Rubs Telemetry: Positive: No significant arrhythmia Abdomen Exam: Positive: Normal bowel sounds, Soft, Negative: Tenderness, Hepatospenomegaly Extremity Exam: Positive: Normal pulses, Negative: Clubbing, Cyanosis, Edema Skin Exam: Positive: Nl turgor and temperature, Negative: Breakdown, Lesion Neuro Exam: Positive: Normal Gait, Normal Speech, Cranial Nerves 3-12 NL, Reflexes 2+ Psych Exam: Positive: Mental status NL, Mood NL, Oriented x 3 Vital Signs Vital Signs Date Time Temp Pulse Resp B/P (MAP) Pulse Ox O2 Delivery O2 Flow Rate FiO2 12/19/16 03:45 97.7 108 22 120/71 (87) 95 Room Air Laboratory Data Labs 24H Laboratory Tests 2 12/18/16 21:32: Immature Granulocyte % (Auto) 0.8H, White Blood Count 26.8H, Red Blood Count 4.85, Hemoglobin 14.7, Hematocrit 43.7, Mean Corpuscular Volume 90.1, Mean Corpuscular Hemoglobin 30.3, Mean Corpuscular Hemoglobin Concent 33.6, Red Cell Distribution Width 13.0, Platelet Count 224, Neutrophils (%) (Auto) 86.5H, Lymphocytes (%) (Auto) 5.3L, Monocytes (%) (Auto) 6.9H, Eosinophils (%) (Auto) 0.2, Basophils (%) (Auto) 0.3, Neutrophils # (Auto) 23.1H, Lymphocytes # (Auto) 1.4L, Monocytes # (Auto) 1.9H, Eosinophils # (Auto) 0.1, Basophils # (Auto) 0.1 , Immature Granulocyte # (Auto) 0.2H, Nucleated Red Blood Cells % (auto) 0.0, Anion Gap 7L, Glomerular Filtration Rate > 60.0, Blood Urea Nitrogen 20H, Creatinine 1.05, Sodium Level 136, Potassium Level 4.5, Chloride Level 98, Carbon Dioxide Level 31, Calcium Level 9.3, GH-Vof-K-Type Natriuretic Peptide 522H 12/18/16 21:35: Total Creatine Kinase 114, Creatine Kinase MB 2.7, Creatine Kinase MB Relative Index 2.36, Troponin I < 0.02 CBC/BMP Laboratory Tests 12/18/16 21:32 Red Blood Count 4.85, Mean Corpuscular Volume 90.1, Mean Corpuscular Hemoglobin 30.3, Mean Corpuscular Hemoglobin Concent 33.6, Red Cell Distribution Width 13.0 , Neutrophils (%) (Auto) 86.5 H, Lymphocytes (%) (Auto) 5.3 L, Monocytes (%) ( Auto) 6.9 H, Eosinophils (%) (Auto) 0.2, Basophils (%) (Auto) 0.3, Neutrophils # (Auto) 23.1 H, Lymphocytes # (Auto) 1.4 L, Monocytes # (Auto) 1.9 H, Eosinophils # (Auto) 0.1, Basophils # (Auto) 0.1, Calcium Level 9.3 Microbiology Microbiology 12/18/16 Blood Culture, Received Pending 12/18/16 Blood Culture, Received Pending 12/18/16 Influenza Virus Type A Antigen - Final, Complete 12/18/16 Influenza Virus Type B Antigen - Final, Complete Assessment/Plan 66-year-old male, history of atrial fibrillation on Eliquis and diabetes mellitus type 2, presented to the emergency room for fever, cough, shortness of breath and chills, likely due to pneumonia Plan / VTE VTE Prophylaxis Ordered?: Yes Plan Plan Healthcare associated pneumonia. WBC 26.8, tachycardic. Chest x-ray showing pneumonia fulfilling criteria for sepsis. Patient will be restarted on IV linezolid and IV Zosyn as patient is allergic to vancomycin. 10. Atrial fibrillation. Continue rate control with flecainide and Lopressor , and anticoagulation with Eliquis. Diabetes mellitus type 2. Hold oral hypoglycemic agents and start sliding scale insulin equivalency. BPH. Continue with Flomax. DVT prophylaxis. Patient is already on Eliquis. Cardiac diabetic diet IVF: Discontinue Diet: Continue Current Activity: Continue Current Therapy: PT, OT Medications: Change to IV, Replete Electrolytes IV Respiratory: Increase Oxygen Diagnostics: Repeat Labs in AM, Obtain Cultures Anticipated Discharge: Home With Services LI LILLY MD Dec 19, 2016 06:44
[2016-12-19] MEDS ORDERED: GLUCOSE 4 GM CHEW TABLET PO PRN ×2 (06:45→20:15)
[2016-12-19] MEDS ORDERED: DEXTROSE 50% 50 ML SYRINGE IV PRN ×2 (06:45→20:15)
[2016-12-19] MEDS ORDERED: GLUCAGON FOR INJ 1 MG VIAL (J1610) SC PRN ×2 (06:45→20:15)
[2016-12-19] MEDS: methylPREDNISolone INJ 125 MG/2 ML VIAL (J2930) IV SCH ×2 (07:00→12:31)
--- NOTE | 2016-12-19 07:51 | REP ---
PA and lateral chest: Comparisons are 09/08/2016 and 06/18/2010. There is a stable granuloma in the right mid lung, unchanged. There are no acute infiltrates or effusions. Cardiac size is normal. The lupis, mediastinum, and bony thorax are unremarkable. Impression: Negative PA and lateral chest. No interval change. Signed by Bronson Foster MD 12/19/2016 07:42 A
[2016-12-19] MEDS: PANTOPRAZOLE 40MG INJ (PROTONIX) (C9113) IV SCH (08:24)
[2016-12-19] MEDS: FLECAINIDE 50MG TABLET PO SCH ×2 (08:25→22:46)
[2016-12-19] MEDS: METOPROLOL TART 25 MG TABLET PO SCH ×2 (08:25→21:06)
[2016-12-19] MEDS: HumaLOG INSULIN (NovoLOG) PER UNIT SC SCH ×4 (08:25→21:08)
[2016-12-19] MEDS: APIXABAN 5 MG TAB (ELIQUIS) PO SCH ×2 (08:25→21:06)
[2016-12-19] MEDS: SYMBICORT 80/4.5MCG INHALER 6GM INH SCH ×2 (09:00→19:53)
[2016-12-19] MEDS ORDERED: ALBUTEROL SULFATE 2.5 MG/0.5 ML INH NEB SOLN NEB PRN (09:00)
[2016-12-19] MEDS: IPRATROPIUM 0.5MG/ALBUTEROL 2.5MG INH SOL UD 3ML (DUONEB)(J7620) NEB SCH ×3 (09:20→19:52)
[2016-12-19] MEDS: AZITHROMYCIN 250 MG TAB PO SCH (09:58)
[2016-12-19] MEDS ORDERED: FUROSEMIDE 40 MG/4 ML VIAL (J1940) IV ONE (10:00)
[2016-12-19 10:47] LABS: BASO % 0.1 % (0.0-1.0); IMMATURE GRANULOCYTE % 0.8 % (0-0); LYMPH # 0.6 10^3/uL (1.5-4.5); LYMPH % 3.4 % (24.0-44.0); MEAN CORPUSCULAR HEMOGLOBIN 30.7 pg (27.0-33.0); MEAN CORPUSCULAR HGB CONC 34.1 g/dl (32.0-36.5); MEAN CORPUSCULAR VOLUME 90.1 fl (80.0-96.0); MONO # 0.2 10^3/uL (0.0-0.8); MONO % 1.1 % (0.0-5.0); NEUTROPHILS # 17.4 10^3/uL (1.8-7.7); NEUTROPHILS % 94.6 % (36.0-66.0); PLATELET COUNT, AUTOMATED 228 10^3/uL (150-450); RED CELL DISTRIBUTION WIDTH 13.1 % (11.5-14.5); WHITE BLOOD COUNT 18.4 10^3/uL (4.0-10.0)
[2016-12-19 10:59] LABS: ADD MANUAL DIFFER NO; DIFF SLIDE NUMBER 141
[2016-12-19 11:36] LABS: CREATININE FOR GFR 1.32 MG/DL (0.70-1.30); GLOMERULAR FILTRATION RATE 58.1 (>49)
[2016-12-19] MEDS: cefTRIAXone SOD 1 GM in D5W 50 ML IV SCH ×2 (12:30→22:46)
[2016-12-19] MEDS: TAMSULOSIN 0.4 MG CAP PO SCH (21:06)
[2016-12-19] MEDS: SIMVASTATIN 20 MG TAB PO SCH (21:06)
[2016-12-19] MEDS ORDERED: SLF 3 ML SYR IV PRN (22:00)
[2016-12-19] MEDS: SLF 3 ML SYR IV SCH (22:47)
[2016-12-20] VITALS (7 sets, daily range): BP systolic 93–135; BP diastolic 55–76
[2016-12-20] MEDS: IPRATROPIUM 0.5MG/ALBUTEROL 2.5MG INH SOL UD 3ML (DUONEB)(J7620) NEB SCH ×5 (01:45→20:00)
[2016-12-20] MEDS: methylPREDNISolone INJ 40 MG/1 ML VIAL (J2920) IV SCH (05:24)
[2016-12-20] MEDS: SLF 3 ML SYR IV SCH ×3 (05:25→21:53)
[2016-12-20 05:45] LABS: BASO % 0.1 % (0.0-1.0); IMMATURE GRANULOCYTE % 1.1 % (0-0); LYMPH # 1.1 10^3/uL (1.5-4.5); LYMPH % 6.4 % (24.0-44.0); MEAN CORPUSCULAR HEMOGLOBIN 30.1 pg (27.0-33.0); MEAN CORPUSCULAR HGB CONC 33.7 g/dl (32.0-36.5); MEAN CORPUSCULAR VOLUME 89.2 fl (80.0-96.0); MONO % 5.5 % (0.0-5.0); NEUTROPHILS # 15.4 10^3/uL (1.8-7.7); NEUTROPHILS % 86.9 % (36.0-66.0); PLATELET COUNT, AUTOMATED 201 10^3/uL (150-450); RED CELL DISTRIBUTION WIDTH 13.1 % (11.5-14.5); WHITE BLOOD COUNT 17.7 10^3/uL (4.0-10.0)
[2016-12-20] MEDS: SYMBICORT 80/4.5MCG INHALER 6GM INH SCH ×2 (07:39→20:00)
[2016-12-20] MEDS: LEVEMIR (INSULIN DETEMIR) 1 UNITS/0.01ML SC SCH (08:40)
[2016-12-20] MEDS: HumaLOG INSULIN (NovoLOG) PER UNIT SC SCH ×4 (08:42→22:24)
[2016-12-20] MEDS: AZITHROMYCIN 250 MG TAB PO SCH (08:42)
[2016-12-20] MEDS: PANTOPRAZOLE 40MG INJ (PROTONIX) (C9113) IV SCH (08:43)
[2016-12-20] MEDS: APIXABAN 5 MG TAB (ELIQUIS) PO SCH ×2 (08:47→21:52)
[2016-12-20] MEDS: METOPROLOL TART 25 MG TABLET PO SCH ×2 (08:47→21:52)
[2016-12-20] MEDS: FLECAINIDE 50MG TABLET PO SCH ×2 (08:47→22:24)
--- NOTE | 2016-12-20 12:09 | IPNPDOC ---
Subjective Date Seen The patient was seen on 12/20/16. Subjective Chief Complaint/HPI The patient is a 66-year-old male admitted with a reason for visit of Lobar Pna. Events since last encounter feeling better, sob improving, less wheezing today , no fever or chills. no nausea or vomiting or abdominal pain , continues to have leg swelling bilaterally . No chest pain or palpitation. Telemetry shows afib/ aflutter and rate increases to 120s on activity. Objective Physical Examination General Exam: Positive: Alert, Cooperative, No Acute Distress Eye Exam: Positive: PERRLA, Conjunctiva & lids normal, EOMI, Negative: Sclera icteric ENT Exam: Positive: Atraumatic, Mucous membr. moist/pink, Pharynx Normal Neck Exam: Positive: Supple, Negative: JVD, thyromegaly Chest Exam: Positive: Rhonchi, Wheezing Heart Exam: Positive: Tachycardic, Irregular Rhythm, Normal S1, Normal S2, Negative: Murmurs, Rubs Telemetry: Positive: Atrial fibrillation Abdomen Exam: Positive: Normal bowel sounds, Soft, Negative: Tenderness, Hepatospenomegaly Extremity Exam: Positive: Edema (bilateral 2 +), Normal pulses, Negative: Clubbing, Cyanosis Skin Exam: Positive: Nl turgor and temperature, Other skin issue (chronic bilateral venous stasis. ), Negative: Breakdown, Lesion Neuro Exam: Positive: Normal Gait, Normal Speech, Cranial Nerves 3-12 NL, Reflexes 2+ Psych Exam: Positive: Mental status NL, Mood NL, Oriented x 3 Assessment /Plan Problems (1) Acute bronchitis Status: Acute Problem Text: CXR no pneumonia. Flu negative. will check resp viral panel. will order sputum cs will continue with ceftriaxone and azithromycin. (2) COPD exacerbation Status: Acute Problem Text: will continue with nebulizations. Symbicort, steroids. (3) Atrial fibrillation with RVR Status: Acute Problem Text: rate in controlled at rest however increases to 120s on activity , will continue with flecainide and metoprolol expect rate to be better controlled with improvement of his respiratory status. (4) Hypertension Status: Chronic (5) Diabetes Status: Chronic Response to Treatment: Uncontrolled Problem Text: sugars high due to steroids. will give levemir and lispro insulin. (6) Obesity Status: Chronic (7) DARREN on CPAP Status: Chronic (8) BPH (benign prostatic hyperplasia) Status: Chronic Problem Text: continue flomax. (9) Hyperlipemia Status: Chronic Problem Text: continue statin Plan/VTE VTE Prophylaxis Ordered?: Yes Plan IVF: Discontinue Diet: Continue Current Activity: Continue Current Therapy: PT, OT Medications: Change to IV, Replete Electrolytes IV Respiratory: Increase Oxygen Diagnostics: Repeat Labs in AM, Obtain Cultures Anticipated Discharge: Home With Services VS, I&O, 24H, Fishbone Vital Signs/I&O Vital Signs Date Time Temp Pulse Resp B/P (MAP) Pulse Ox O2 Delivery O2 Flow Rate FiO2 12/20/16 11:53 98.0 57 18 121/62 (81) 93 Room Air I&O- Last 24 Hours up to 6 AM 12/21/16 06:00 Intake Total 720 ml Output Total 250 ml Balance 470 ml Laboratory Data 24H LABS Laboratory Tests 2 12/19/16 12:04: Bedside Glucose (Misc Panel) 280H 12/19/16 17:39: Bedside Glucose (Misc Panel) 274H 12/19/16 20:45: Bedside Glucose (Misc Panel) 340H 12/20/16 05:15: Immature Granulocyte % (Auto) 1.1H, White Blood Count 17.7H, Red Blood Count 4.09L, Hemoglobin 12.3L, Hematocrit 36.5L, Mean Corpuscular Volume 89.2, Mean Corpuscular Hemoglobin 30.1, Mean Corpuscular Hemoglobin Concent 33.7, Red Cell Distribution Width 13.1, Platelet Count 201, Neutrophils (%) (Auto) 86.9H, Lymphocytes (%) (Auto) 6.4L, Monocytes (%) (Auto) 5.5H, Eosinophils (%) (Auto) 0.0, Basophils (%) (Auto) 0.1, Neutrophils # (Auto) 15.4H, Lymphocytes # (Auto) 1.1L, Monocytes # (Auto) 1.0H, Eosinophils # (Auto) 0.0, Basophils # (Auto) 0.0 , Immature Granulocyte # (Auto) 0.2H, Nucleated Red Blood Cells % (auto) 0.0 12/20/16 06:46: Bedside Glucose (Misc Panel) 321H CBC/BMP Laboratory Tests 12/20/16 05:15 Red Blood Count 4.09 L, Mean Corpuscular Volume 89.2, Mean Corpuscular Hemoglobin 30.1, Mean Corpuscular Hemoglobin Concent 33.7, Red Cell Distribution Width 13.1, Neutrophils (%) (Auto) 86.9 H, Lymphocytes (%) (Auto) 6.4 L, Monocytes (%) (Auto) 5.5 H, Eosinophils (%) (Auto) 0.0, Basophils (%) ( Auto) 0.1, Neutrophils # (Auto) 15.4 H, Lymphocytes # (Auto) 1.1 L, Monocytes # (Auto) 1.0 H, Eosinophils # (Auto) 0.0, Basophils # (Auto) 0.0 Microbiology Microbiology 12/18/16 Blood Culture - Preliminary, Resulted No growth after 24 hours . All specim... 12/18/16 Blood Culture - Preliminary, Resulted No growth after 24 hours . All specim... 12/18/16 Influenza Virus Type A Antigen - Final, Complete 12/18/16 Influenza Virus Type B Antigen - Final, Complete ANDRES PICHARDO MD Dec 20, 2016 12:09
[2016-12-20] MEDS: cefTRIAXone SOD 1 GM in D5W 50 ML IV SCH ×2 (12:31→22:23)
[2016-12-20 13:03] LABS: ANION GAP 10 MEQ/L (8-16); BLOOD UREA NITROGEN 30 MG/DL (7-18); CALCIUM LEVEL 7.7 MG/DL (8.8-10.2); CARBON DIOXIDE LEVEL 26 MEQ/L (21-32); CHLORIDE LEVEL 98 MEQ/L (98-107); GLOMERULAR FILTRATION RATE > 60.0 (>49); GLUCOSE, FASTING 348 MG/DL (80-110); POTASSIUM SERUM 4.2 MEQ/L (3.5-5.1); SODIUM LEVEL 134 MEQ/L (136-145)
[2016-12-20] MEDS: TAMSULOSIN 0.4 MG CAP PO SCH (21:52)
[2016-12-20] MEDS: SIMVASTATIN 20 MG TAB PO SCH (21:52)
[2016-12-21] VITALS: BP 107/57
[2016-12-21] MEDS: IPRATROPIUM 0.5MG/ALBUTEROL 2.5MG INH SOL UD 3ML (DUONEB)(J7620) NEB SCH ×4 (01:05→19:47)
[2016-12-21 04:00] VITALS: BP 106/58
[2016-12-21 05:51] LABS: BASO % 0.1 % (0.0-1.0); EOS % 0.2 % (0.0-3.0); IMMATURE GRANULOCYTE % 1.1 % (0-0); LYMPH # 2.3 10^3/uL (1.5-4.5); LYMPH % 16.1 % (24.0-44.0); MEAN CORPUSCULAR HEMOGLOBIN 30.2 pg (27.0-33.0); MEAN CORPUSCULAR HGB CONC 33.2 g/dl (32.0-36.5); MEAN CORPUSCULAR VOLUME 90.9 fl (80.0-96.0); NEUTROPHILS # 10.6 10^3/uL (1.8-7.7); NEUTROPHILS % 75.5 % (36.0-66.0); PLATELET COUNT, AUTOMATED 184 10^3/uL (150-450); RED CELL DISTRIBUTION WIDTH 13.1 % (11.5-14.5); WHITE BLOOD COUNT 14.1 10^3/uL (4.0-10.0)
[2016-12-21] MEDS: SLF 3 ML SYR IV SCH ×3 (06:00→21:18)
[2016-12-21 06:03] LABS: ANION GAP 7 MEQ/L (8-16); BLOOD UREA NITROGEN 36 MG/DL (7-18); CALCIUM LEVEL 7.8 MG/DL (8.8-10.2); CARBON DIOXIDE LEVEL 30 MEQ/L (21-32); CHLORIDE LEVEL 103 MEQ/L (98-107); GLOMERULAR FILTRATION RATE > 60.0 (>49); GLUCOSE, FASTING 189 MG/DL (80-110); SODIUM LEVEL 140 MEQ/L (136-145)
[2016-12-21 08:00] VITALS: BP 103/54
[2016-12-21] MEDS ORDERED: INFLUENZA QUADRIVALENT PF VACCINE 0.5ML SYRINGE (90686) IM SCH (08:15)
[2016-12-21] MEDS ORDERED: FUROSEMIDE 100 MG/10 ML VIAL (J1940) IV ONE (08:30)
[2016-12-21] MEDS: SYMBICORT 80/4.5MCG INHALER 6GM INH SCH ×2 (09:19→19:46)
[2016-12-21] MEDS: PANTOPRAZOLE 40MG INJ (PROTONIX) (C9113) IV SCH (09:24)
[2016-12-21] MEDS: HumaLOG INSULIN (NovoLOG) PER UNIT SC SCH ×4 (09:24→21:16)
[2016-12-21] MEDS: LEVEMIR (INSULIN DETEMIR) 1 UNITS/0.01ML SC SCH (09:24)
[2016-12-21] MEDS: AZITHROMYCIN 250 MG TAB PO SCH (09:25)
[2016-12-21] MEDS: predniSONE 20 MG TAB PO SCH (09:25)
[2016-12-21] MEDS: APIXABAN 5 MG TAB (ELIQUIS) PO SCH ×2 (09:25→21:15)
[2016-12-21] MEDS: METOPROLOL TART 25 MG TABLET PO SCH ×2 (09:26→21:16)
[2016-12-21] MEDS: FLECAINIDE 50MG TABLET PO SCH ×2 (09:34→21:15)
[2016-12-21] MEDS: cefTRIAXone SOD 1 GM in D5W 50 ML IV SCH (11:12)
--- NOTE | 2016-12-21 11:43 | IPNPDOC ---
Subjective Date Seen The patient was seen on 12/21/16. Subjective Chief Complaint/HPI The patient is a 66-year-old male admitted with a reason for visit of Lobar Pna. Events since last encounter complains of feeling congested this am , still has SOb on exertion , no fever or chills, no chest pain , no palpitation , no nausea or vomiting or diarrhea or abdominal pain . Objective Physical Examination General Exam: Positive: Alert, Cooperative, No Acute Distress Eye Exam: Positive: PERRLA, Conjunctiva & lids normal, EOMI, Negative: Sclera icteric ENT Exam: Positive: Atraumatic, Mucous membr. moist/pink, Pharynx Normal Neck Exam: Positive: Supple, Negative: JVD, thyromegaly Chest Exam: Positive: Rhonchi, Wheezing Heart Exam: Positive: Tachycardic, Irregular Rhythm, Normal S1, Normal S2, Negative: Murmurs, Rubs Telemetry: Positive: Atrial fibrillation Abdomen Exam: Positive: Normal bowel sounds, Soft, Negative: Tenderness, Hepatospenomegaly Extremity Exam: Positive: Edema (bilateral 2 +), Normal pulses, Negative: Clubbing, Cyanosis Skin Exam: Positive: Nl turgor and temperature, Other skin issue (chronic bilateral venous stasis. ), Negative: Breakdown, Lesion Neuro Exam: Positive: Normal Gait, Normal Speech, Cranial Nerves 3-12 NL, Reflexes 2+ Psych Exam: Positive: Mental status NL, Mood NL, Oriented x 3 Assessment /Plan Problems (1) Acute bronchitis Status: Acute Problem Text: CXR no pneumonia. Flu negative. will check resp viral panel. will order sputum cs will continue with ceftriaxone and azithromycin. (2) COPD exacerbation Status: Acute Problem Text: will continue with nebulizations. Symbicort, steroids. (3) Atrial fibrillation with RVR Status: Acute Response to Treatment: Improving Problem Text: Has a fib/ aflutter rate in controlled will continue with flecainide and metoprolol, telemetry did show some bradycardia in 40s during sleep patient was asymptomatic. continue eliquis (4) Hypertension Status: Chronic (5) Diabetes Status: Chronic Response to Treatment: Uncontrolled Problem Text: sugars high due to steroids. will give levemir and lispro insulin. (6) Obesity Status: Chronic (7) DARREN on CPAP Status: Chronic (8) BPH (benign prostatic hyperplasia) Status: Chronic Problem Text: continue flomax. (9) Hyperlipemia Status: Chronic Problem Text: continue statin Plan/VTE VTE Prophylaxis Ordered?: Yes Plan IVF: Discontinue Diet: Continue Current Activity: Continue Current Therapy: PT, OT Medications: Change to IV, Replete Electrolytes IV Respiratory: Increase Oxygen Diagnostics: Repeat Labs in AM, Obtain Cultures Anticipated Discharge: Home With Services VS, I&O, 24H, Fishbone Vital Signs/I&O Vital Signs Date Time Temp Pulse Resp B/P (MAP) Pulse Ox O2 Delivery O2 Flow Rate FiO2 12/21/16 09:26 67 103/54 12/21/16 08:00 Room Air 12/21/16 08:00 97.6 18 95 I&O- Last 24 Hours up to 6 AM 12/22/16 06:00 Intake Total 0 ml Output Total 1200 ml Balance -1200 ml Laboratory Data 24H LABS Laboratory Tests 2 12/20/16 12:11: Anion Gap 10, Glomerular Filtration Rate > 60.0, Blood Urea Nitrogen 30H, Creatinine 1.20, Sodium Level 134L, Potassium Level 4.2, Chloride Level 98, Carbon Dioxide Level 26, Calcium Level 7.7L 12/20/16 12:12: Bedside Glucose (Misc Panel) 340H 12/20/16 16:33: Bedside Glucose (Misc Panel) 277H 12/20/16 22:04: Bedside Glucose (Misc Panel) 251H 12/21/16 05:31: Immature Granulocyte % (Auto) 1.1H, White Blood Count 14.1H, Red Blood Count 3.97L, Hemoglobin 12.0L, Hematocrit 36.1L, Mean Corpuscular Volume 90.9, Mean Corpuscular Hemoglobin 30.2, Mean Corpuscular Hemoglobin Concent 33.2, Red Cell Distribution Width 13.1, Platelet Count 184, Neutrophils (%) (Auto) 75.5H, Lymphocytes (%) (Auto) 16.1L, Monocytes (%) (Auto) 7.0H, Eosinophils (%) (Auto) 0.2, Basophils (%) (Auto) 0.1, Neutrophils # (Auto) 10.6H, Lymphocytes # (Auto) 2.3, Monocytes # (Auto) 1.0H, Eosinophils # (Auto) 0.0, Basophils # (Auto) 0.0, Immature Granulocyte # (Auto) 0.2H, Nucleated Red Blood Cells % (auto) 0.0, Anion Gap 7L, Glomerular Filtration Rate > 60.0, Blood Urea Nitrogen 36H, Creatinine 1.00, Sodium Level 140, Potassium Level 4.0, Chloride Level 103, Carbon Dioxide Level 30, Calcium Level 7.8L CBC/BMP Laboratory Tests 12/20/16 12:11 Calcium Level 7.7 L 12/21/16 05:31 Calcium Level 7.8 L, Red Blood Count 3.97 L, Mean Corpuscular Volume 90.9, Mean Corpuscular Hemoglobin 30.2, Mean Corpuscular Hemoglobin Concent 33.2, Red Cell Distribution Width 13.1, Neutrophils (%) (Auto) 75.5 H, Lymphocytes (%) (Auto) 16.1 L, Monocytes (%) (Auto) 7.0 H, Eosinophils (%) (Auto) 0.2, Basophils (%) ( Auto) 0.1, Neutrophils # (Auto) 10.6 H, Lymphocytes # (Auto) 2.3, Monocytes # ( Auto) 1.0 H, Eosinophils # (Auto) 0.0, Basophils # (Auto) 0.0 Microbiology Microbiology 12/18/16 Blood Culture - Preliminary, Resulted No Growth after 48 hours. All Specime... 12/18/16 Blood Culture - Preliminary, Resulted No Growth after 48 hours. All Specime... 12/20/16 Respiratory Virus Panel (PCR) (GENEVIEVE) - Final, Complete 12/18/16 Influenza Virus Type A Antigen - Final, Complete 12/18/16 Influenza Virus Type B Antigen - Final, Complete ANDRES PICHARDO MD Dec 21, 2016 11:43
[2016-12-21 14:20] VITALS: BP 146/76
[2016-12-21] MEDS: SIMVASTATIN 20 MG TAB PO SCH (21:15)
[2016-12-21] MEDS: TAMSULOSIN 0.4 MG CAP PO SCH (21:15)
[2016-12-21 21:45] VITALS: BP 140/78
[2016-12-22] MEDS: cefTRIAXone SOD 1 GM in D5W 50 ML IV SCH ×2 (00:09→11:00)
[2016-12-22] MEDS: IPRATROPIUM 0.5MG/ALBUTEROL 2.5MG INH SOL UD 3ML (DUONEB)(J7620) NEB SCH ×2 (02:00→07:37)
[2016-12-22 06:00] VITALS: BP 158/78
[2016-12-22] MEDS: SLF 3 ML SYR IV SCH (06:00)
[2016-12-22 06:38] LABS: BASO % 0.1 % (0.0-1.0); EOS # 0.1 10^3/uL (0.0-0.50); EOS % 0.8 % (0.0-3.0); IMMATURE GRANULOCYTE % 1.1 % (0-0); LYMPH # 3.2 10^3/uL (1.5-4.5); LYMPH % 30.8 % (24.0-44.0); MONO # 0.9 10^3/uL (0.0-0.8); MONO % 8.8 % (0.0-5.0); NEUTROPHILS # 6.1 10^3/uL (1.8-7.7); NEUTROPHILS % 58.4 % (36.0-66.0); PLATELET COUNT, AUTOMATED 197 10^3/uL (150-450); WHITE BLOOD COUNT 10.4 10^3/uL (4.0-10.0)
[2016-12-22 06:57] LABS: ANION GAP 7 MEQ/L (8-16); BLOOD UREA NITROGEN 35 MG/DL (7-18); CALCIUM LEVEL 7.9 MG/DL (8.8-10.2); CARBON DIOXIDE LEVEL 32 MEQ/L (21-32); CHLORIDE LEVEL 103 MEQ/L (98-107); CREATININE FOR GFR 0.95 MG/DL (0.70-1.30); GLOMERULAR FILTRATION RATE > 60.0 (>49); GLUCOSE, FASTING 145 MG/DL (80-110); POTASSIUM SERUM 4.2 MEQ/L (3.5-5.1); SODIUM LEVEL 142 MEQ/L (136-145)
[2016-12-22] MEDS: SYMBICORT 80/4.5MCG INHALER 6GM INH SCH (07:37)
[2016-12-22 08:00] VITALS: BP 123/69
[2016-12-22] MEDS: PANTOPRAZOLE 40MG INJ (PROTONIX) (C9113) IV SCH (08:39)
[2016-12-22] MEDS: LEVEMIR (INSULIN DETEMIR) 1 UNITS/0.01ML SC SCH (08:39)
[2016-12-22] MEDS: AZITHROMYCIN 250 MG TAB PO SCH (08:40)
[2016-12-22] MEDS: HumaLOG INSULIN (NovoLOG) PER UNIT SC SCH ×2 (08:40→12:00)
[2016-12-22] MEDS: predniSONE 20 MG TAB PO SCH (08:40)
[2016-12-22] MEDS: APIXABAN 5 MG TAB (ELIQUIS) PO SCH (08:40)
[2016-12-22] MEDS: FLECAINIDE 50MG TABLET PO SCH (08:40)
[2016-12-22 08:41] VITALS: BP 123/69
[2016-12-22] MEDS: METOPROLOL TART 25 MG TABLET PO SCH (08:41)
[2016-12-22] MEDS ORDERED: PRED20TA PO (11:05)
[2016-12-22] MEDS ORDERED: CEFD1CAP8 PO (11:05)
[2016-12-22] MEDS ORDERED: AZIT250T8 PO (11:05)
--- NOTE | 2017-01-05 10:27 | DSES ---
DATE OF ADMISSION: 12/19/2016 DATE OF DISCHARGE: 12/22/2016 PRIMARY CARE PROVIDER: No primary care provider given at the [facility] ([facility]. DISCHARGE DIAGNOSES: 1. Acute bronchitis. 2. Chronic obstructive pulmonary disease (COPD) exacerbation. 3. Atrial fibrillation and flutter with rapid ventricular response. 4. Hypertension. 5. Diabetes. 7. Obesity. 8. Obstructive sleep apnea (DARREN), on continuous positive airway pressure (CPAP). 9. BPH. 10. Hyperlipidemia. DISCHARGE MEDICATIONS: - erythromycin 500 mg by mouth daily - cefdinir 300 mg by mouth twice a day - prednisone 40 mg daily for 3 days - albuterol MDI two puff inhalation every 4 hours as needed for shortness of breath - albuterol nebulizer solution one solution every 4 hours as needed for shortness of breath - Eliquis 5 mg by mouth twice a day - vitamin C 500 mg by mouth daily - aspirin 81 mg by mouth daily - Lumigan one drop both eyes at bedtime - Alphagan P eye drop one drop both eyes twice a day - calcium/vitamin D one tablet by mouth daily - flecainide 50 mg by mouth twice a day - Breo Ellipta one puff inhalation daily - lisinopril hydrochlorothiazide 20-25 one tablet by mouth daily - metformin 2000 mg at bedtime - metoprolol tartrate 25 mg by mouth twice a day - multivitamin one tablet by mouth daily - simvastatin 20 mg at bedtime - Flomax 0.4 mg every night HOSPITAL COURSE: This is a 66-year-old male who presented to the hospital with acute onset shortness of breath, fever and chills and body ache. On arrival to the emergency room, the patient was found to be tachycardic with elevated white count and febrile to 101.5. The patient was initially thought to have pneumonia; however, chest x-ray did not show any infiltrates or consolidation. The patient was then diagnosed with acute bronchitis and chronic obstructive pulmonary disease exacerbation. The patient was also noted to be in atrial fibrillation, atrial flutter with a rapid ventricular response. The patient was given mild hydration with improvement in his pulse rate. He was started on intravenous (IV) antibiotics, which were subsequently changed to oral antibiotics. The patient responded well to treatment. On the day of discharge, he did not have any complaints. His vital signs were stable, and he was functionally at baseline. PHYSICAL EXAMINATION: VITAL SIGNS: Temperature 98.4, pulse 84, respiratory rate 18, blood pressure 123/69, pulse oximetry 96% in room air. GENERAL: Patient awake, alert, oriented times three, sitting up in bed in no acute distress. HEENT: Normocephalic, atraumatic. Moist mucous membranes. Anicteric eyes. CHEST: Overall poor air entry. Mild wheezing bilaterally. CARDIOVASCULAR: Irregular rhythm. Normal S1, S2. Rate controlled. ABDOMEN: Obese, soft, nontender. Bowel sounds present. EXTREMITIES: Edema present. LABORATORY DATA: WBC 10.4, hemoglobin 12.6, platelets 197. Sodium 142, potassium 4.2, chloride 103, bicarbonate 32, BUN 35, creatinine 0.95, glucose 145. A1c 6.8. Lipid panel normal. Blood cultures negative. Respiratory viral panel negative. DISPOSITION: The patient is discharged home in stable condition. DISCHARGE INSTRUCTIONS: Patient to followup with primary care provider in 1-2 weeks. Diet: 2-gram sodium diet and fluid restriction 1.8 liters in 24 hours. Activity as tolerated.
== END 2016-12-22 13:20 | disposition home or self-care (01) | DRG 140 ==
LOC: M ED 20:14 → M ED INP 12-19 00:52 → M PCU 12-19 21:25 → M MSPAV 12-21 14:21 → M PED 12-21 21:44 → UNDODISIN 12-22 13:20
PROVIDERS: ADMIT Internal Medicine; ATTEND Internal Medicine Nephrology
DX: J44.0 Chronic obstructive pulmonary disease with (acute) lower respiratory infection (principal); I48.92 Unspecified atrial flutter; I10 Essential (primary) hypertension; I48.91 Unspecified atrial fibrillation; E11.9 Type 2 diabetes mellitus without complications; E66.9 Obesity, unspecified; G47.33 Obstructive sleep apnea (adult) (pediatric); E78.5 Hyperlipidemia, unspecified; J20.9 Acute bronchitis, unspecified; N40.0 Benign prostatic hyperplasia without lower urinary tract symptoms; Z79.899 Other long term (current) drug therapy; Z79.82 Long term (current) use of aspirin; Z88.1 Allergy status to other antibiotic agents; Z91.040 Latex allergy status

== ENCOUNTER → 2016-12-27 | Outpatient (REF) | payer BC ==
[~2016-12-27] MED LIST changes: +AZIT250T8 PO; +CALC1TAB30 PO; +CEFD1CAP8 PO; +FLEC25TA; +FLEC50TA PO; +PRED20TA PO
== END ==
LOC: M SFHCPLAZ 10:34
PROVIDERS: ATTEND Student in an Organized Health Care Education/Training Program
DX: E11.9 Type 2 diabetes mellitus without complications (principal)

== ENCOUNTER 2017-05-07 15:14 | Inpatient (IN) | payer MEDICARE ==
[2017-05-07] MEDS: FUROSEMIDE 40 MG/4 ML VIAL (J1940) IV ×2 (16:15→22:17)
[2017-05-07 16:52] LABS: BASO # 0.1 10^3/uL (0.0-0.2); BASO % 0.7 % (0.0-1.0); EOS # 0.4 10^3/uL (0.0-0.50); EOS % 3.6 % (0.0-3.0); HEMATOCRIT 38.9 % (42.0-52.0); HEMOGLOBIN 12.6 g/dl (14.0-18.0); IMMATURE GRANULOCYTE % 1.4 % (0-3.0); LYMPH # 2.2 10^3/uL (1.5-4.5); LYMPH % 21.3 % (24.0-44.0); MEAN CORPUSCULAR HEMOGLOBIN 29.2 pg (27.0-33.0); MEAN CORPUSCULAR HGB CONC 32.4 g/dl (32.0-36.5); MEAN CORPUSCULAR VOLUME 90.3 fl (80.0-96.0); MONO % 9.3 % (0.0-5.0); NEUTROPHILS # 6.6 10^3/uL (1.8-7.7); NEUTROPHILS % 63.7 % (36.0-66.0); PLATELET COUNT, AUTOMATED 262 10^3/uL (150-450); RED BLOOD COUNT 4.31 10^6/uL (4.30-6.10); RED CELL DISTRIBUTION WIDTH 12.9 % (11.5-14.5); WHITE BLOOD COUNT 10.4 10^3/uL (4.0-10.0)
[2017-05-07 17:19] LABS: ALBUMIN 3.5 GM/DL (3.2-5.2); ALBUMIN/GLOBULIN RATIO 1.09 (1.00-1.93); ALKALINE PHOSPHATASE 102 U/L (45-117); ALT/SGPT 27 U/L (12-78); ANION GAP 6 MEQ/L (8-16); AST/SGOT 24 U/L (7-37); BILIRUBIN,DIRECT 0.1 MG/DL (0.0-0.2); BLOOD UREA NITROGEN 25 MG/DL (7-18); CARBON DIOXIDE LEVEL 30 MEQ/L (21-32); CHLORIDE LEVEL 104 MEQ/L (98-107); CPK CREATINE PHOSPHOKINASE 139 U/L (39-308); GLOMERULAR FILTRATION RATE > 60.0 (>49); GLUCOSE, FASTING 154 MG/DL (70-100); POTASSIUM SERUM 4.8 MEQ/L (3.5-5.1); SODIUM LEVEL 140 MEQ/L (136-145); TOTAL PROTEIN 6.7 GM/DL (6.4-8.2); TROPONIN I < 0.02 NG/ML (< 0.10)
[2017-05-07 17:24] LABS: BILIRUBIN,TOTAL 0.7 MG/DL (0.2-1.0); CK-MB VALUE MASS 3.9 NG/ML (0.0-3.6); NT-PRO BNP 947 PG/ML (<125)
[2017-05-07] MEDS ORDERED: GLUCOSE 4 GM CHEW TABLET PO (19:15)
[2017-05-07] MEDS ORDERED: DEXTROSE 50% 50 ML SYRINGE IV (19:15)
[2017-05-07] MEDS ORDERED: GLUCAGON FOR INJ 1 MG VIAL (J1610) SC (19:15)
[2017-05-07] MEDS ORDERED: ONDANSETRON 4MG/2ML VIAL (J2405) IV (19:15)
[2017-05-07] MEDS ORDERED: FLECAINIDE 50MG TABLET PO (21:00)
[2017-05-07] MEDS: HumaLOG INSULIN (NovoLOG) PER UNIT SC (21:00)
[2017-05-07] MEDS: SIMVASTATIN 40 MG TAB PO (21:00)
[2017-05-07 22:00] LABS: BEDSIDE GLUCOSE 195 MG/DL (80-115)
[2017-05-07] MEDS: APIXABAN 5 MG TAB (ELIQUIS) PO (22:15)
[2017-05-07] MEDS: TAMSULOSIN 0.4 MG CAP PO (22:16)
[2017-05-07] MEDS: ACETAMINOPHEN TAB 650MG DOSE (2X325MG) PO (22:17)
[2017-05-07] MEDS: METOPROLOL TART 50 MG TAB PO (22:17)
[2017-05-08] MEDS: BRIMONIDINE 0.1% OPHTH SOLN 5 ML OU ×3 (00:05→20:41)
[2017-05-08] MEDS: OMEGA-3 1050MG CAPSULE PO ×3 (00:06→20:40)
[2017-05-08] MEDS: IPRATROPIUM 0.5MG/ALBUTEROL 2.5MG INH SOL UD 3ML (DUONEB)(J7620) NEB ×4 (02:41→21:52)
[2017-05-08] MEDS: FUROSEMIDE 40 MG/4 ML VIAL (J1940) IV ×3 (07:16→20:44)
[2017-05-08 07:20] LABS: HEMATOCRIT 37.2 % (42.0-52.0); HEMOGLOBIN 12.4 g/dl (14.0-18.0); MEAN CORPUSCULAR HEMOGLOBIN 29.7 pg (27.0-33.0); MEAN CORPUSCULAR HGB CONC 33.3 g/dl (32.0-36.5); PLATELET COUNT, AUTOMATED 234 10^3/uL (150-450); RED BLOOD COUNT 4.18 10^6/uL (4.30-6.10); WHITE BLOOD COUNT 8.6 10^3/uL (4.0-10.0)
[2017-05-08 07:52] LABS: ALBUMIN 3.2 GM/DL (3.2-5.2); ALBUMIN/GLOBULIN RATIO 1.07 (1.00-1.93); ALKALINE PHOSPHATASE 93 U/L (45-117); ALT/SGPT 24 U/L (12-78); ANION GAP 7 MEQ/L (8-16); AST/SGOT 18 U/L (7-37); BILIRUBIN,TOTAL 0.9 MG/DL (0.2-1.0); BLOOD UREA NITROGEN 26 MG/DL (7-18); CALCIUM LEVEL 8.2 MG/DL (8.8-10.2); CARBON DIOXIDE LEVEL 31 MEQ/L (21-32); CHLORIDE LEVEL 102 MEQ/L (98-107); CREATININE FOR GFR 1.08 MG/DL (0.70-1.30); GLOMERULAR FILTRATION RATE > 60.0 (>49); GLUCOSE, FASTING 190 MG/DL (70-100); MAGNESIUM LEVEL 2.1 MG/DL (1.8-2.4); POTASSIUM SERUM 4.1 MEQ/L (3.5-5.1); SODIUM LEVEL 140 MEQ/L (136-145); TOTAL PROTEIN 6.2 GM/DL (6.4-8.2)
[2017-05-08 08:08] LABS: BEDSIDE GLUCOSE 290 MG/DL (80-115)
[2017-05-08] MEDS: HumaLOG INSULIN (NovoLOG) PER UNIT SC ×4 (08:17→20:41)
[2017-05-08] MEDS ORDERED: ENOXAPARIN 40 MG/0.4 ML SYRINGE (J1650) SC (09:00)
[2017-05-08] MEDS: FLUoxetine 20 MG CAP PO (09:40)
[2017-05-08] MEDS: APIXABAN 5 MG TAB (ELIQUIS) PO ×2 (09:40→20:40)
[2017-05-08] MEDS: ASCORBIC ACID 500 MG TAB PO (09:40)
[2017-05-08] MEDS: MULTIVITAMINS/MINERALS THERAP 1 TAB PO (09:40)
[2017-05-08] MEDS: ASPIRIN 81 MG ENTERIC TAB PO (09:41)
[2017-05-08] MEDS: METOPROLOL TART 50 MG TAB PO ×2 (09:41→20:40)
[2017-05-08 12:53] LABS: BEDSIDE GLUCOSE 193 MG/DL (80-115)
[2017-05-08 16:49] LABS: BEDSIDE GLUCOSE 173 MG/DL (80-115)
[2017-05-08 20:39] LABS: BEDSIDE GLUCOSE 252 MG/DL (80-115)
[2017-05-08] MEDS: TAMSULOSIN 0.4 MG CAP PO (20:40)
[2017-05-08] MEDS: SIMVASTATIN 40 MG TAB PO (20:40)
[2017-05-09] MEDS: IPRATROPIUM 0.5MG/ALBUTEROL 2.5MG INH SOL UD 3ML (DUONEB)(J7620) NEB ×5 (01:49→20:18)
[2017-05-09] MEDS ORDERED: SLF 3 ML SYR IV (02:45)
[2017-05-09] MEDS: FUROSEMIDE 40 MG/4 ML VIAL (J1940) IV ×3 (05:28→21:00)
[2017-05-09] MEDS: SLF 3 ML SYR IV ×3 (05:29→21:01)
[2017-05-09 05:53] LABS: HEMATOCRIT 38.7 % (42.0-52.0); HEMOGLOBIN 12.9 g/dl (14.0-18.0); MEAN CORPUSCULAR HEMOGLOBIN 28.9 pg (27.0-33.0); MEAN CORPUSCULAR HGB CONC 33.3 g/dl (32.0-36.5); MEAN CORPUSCULAR VOLUME 86.6 fl (80.0-96.0); PLATELET COUNT, AUTOMATED 270 10^3/uL (150-450); RED BLOOD COUNT 4.47 10^6/uL (4.30-6.10); RED CELL DISTRIBUTION WIDTH 12.7 % (11.5-14.5); WHITE BLOOD COUNT 9.5 10^3/uL (4.0-10.0)
[2017-05-09 06:19] LABS: ALBUMIN 3.3 GM/DL (3.2-5.2); ALBUMIN/GLOBULIN RATIO 0.94 (1.00-1.93); ALKALINE PHOSPHATASE 97 U/L (45-117); ALT/SGPT 26 U/L (12-78); ANION GAP 9 MEQ/L (8-16); AST/SGOT 22 U/L (7-37); BILIRUBIN,TOTAL 0.9 MG/DL (0.2-1.0); BLOOD UREA NITROGEN 29 MG/DL (7-18); CALCIUM LEVEL 8.2 MG/DL (8.8-10.2); CARBON DIOXIDE LEVEL 30 MEQ/L (21-32); CHLORIDE LEVEL 99 MEQ/L (98-107); CREATININE FOR GFR 1.07 MG/DL (0.70-1.30); GLOMERULAR FILTRATION RATE > 60.0 (>49); GLUCOSE, FASTING 199 MG/DL (70-100); POTASSIUM SERUM 3.8 MEQ/L (3.5-5.1); SODIUM LEVEL 138 MEQ/L (136-145); TOTAL PROTEIN 6.8 GM/DL (6.4-8.2)
[2017-05-09] MEDS: ASCORBIC ACID 500 MG TAB PO (08:13)
[2017-05-09] MEDS: APIXABAN 5 MG TAB (ELIQUIS) PO ×2 (08:13→21:00)
[2017-05-09] MEDS: FLUoxetine 20 MG CAP PO (08:13)
[2017-05-09] MEDS: HumaLOG INSULIN (NovoLOG) PER UNIT SC ×4 (08:13→21:08)
[2017-05-09] MEDS: ASPIRIN 81 MG ENTERIC TAB PO (08:13)
[2017-05-09] MEDS: METOPROLOL TART 50 MG TAB PO ×2 (08:13→21:00)
[2017-05-09] MEDS: OMEGA-3 1050MG CAPSULE PO ×2 (08:13→21:00)
[2017-05-09] MEDS: MULTIVITAMINS/MINERALS THERAP 1 TAB PO (08:13)
[2017-05-09] MEDS: BRIMONIDINE 0.1% OPHTH SOLN 5 ML OU ×2 (08:14→21:00)
[2017-05-09 11:41] LABS: BEDSIDE GLUCOSE 292 MG/DL (80-115)
[2017-05-09 16:59] LABS: BEDSIDE GLUCOSE 253 MG/DL (80-115)
[2017-05-09] MEDS: diphenhydrAMINE CREAM 30GM TOP ×2 (17:29→21:01)
[2017-05-09] MEDS: TAMSULOSIN 0.4 MG CAP PO (21:00)
[2017-05-09] MEDS: SIMVASTATIN 40 MG TAB PO (21:00)
[2017-05-09 21:37] LABS: BEDSIDE GLUCOSE 230 MG/DL (80-115)
[2017-05-10] MEDS: IPRATROPIUM 0.5MG/ALBUTEROL 2.5MG INH SOL UD 3ML (DUONEB)(J7620) NEB ×4 (01:31→19:45)
[2017-05-10] MEDS: FUROSEMIDE 40 MG/4 ML VIAL (J1940) IV ×3 (05:37→21:41)
[2017-05-10] MEDS: SLF 3 ML SYR IV ×3 (05:38→21:41)
[2017-05-10 06:30] LABS: HEMATOCRIT 39.8 % (42.0-52.0); HEMOGLOBIN 13.1 g/dl (14.0-18.0); MEAN CORPUSCULAR HEMOGLOBIN 28.9 pg (27.0-33.0); MEAN CORPUSCULAR HGB CONC 32.9 g/dl (32.0-36.5); MEAN CORPUSCULAR VOLUME 87.7 fl (80.0-96.0); PLATELET COUNT, AUTOMATED 250 10^3/uL (150-450); RED BLOOD COUNT 4.54 10^6/uL (4.30-6.10); RED CELL DISTRIBUTION WIDTH 12.7 % (11.5-14.5); WHITE BLOOD COUNT 9.4 10^3/uL (4.0-10.0)
[2017-05-10 07:08] LABS: ALBUMIN 3.4 GM/DL (3.2-5.2); ALBUMIN/GLOBULIN RATIO 0.94 (1.00-1.93); ALKALINE PHOSPHATASE 98 U/L (45-117); ALT/SGPT 25 U/L (12-78); ANION GAP 8 MEQ/L (8-16); AST/SGOT 21 U/L (7-37); BILIRUBIN,TOTAL 0.8 MG/DL (0.2-1.0); BLOOD UREA NITROGEN 35 MG/DL (7-18); CALCIUM LEVEL 8.5 MG/DL (8.8-10.2); CARBON DIOXIDE LEVEL 32 MEQ/L (21-32); CHLORIDE LEVEL 98 MEQ/L (98-107); CREATININE FOR GFR 1.13 MG/DL (0.70-1.30); GLOMERULAR FILTRATION RATE > 60.0 (>49); GLUCOSE, FASTING 213 MG/DL (70-100); MAGNESIUM LEVEL 2.1 MG/DL (1.8-2.4); POTASSIUM SERUM 3.8 MEQ/L (3.5-5.1); SODIUM LEVEL 138 MEQ/L (136-145)
[2017-05-10] MEDS: HumaLOG INSULIN (NovoLOG) PER UNIT SC ×4 (08:07→20:40)
[2017-05-10] MEDS: METOPROLOL TART 50 MG TAB PO ×4 (08:08→20:39)
[2017-05-10] MEDS: ASCORBIC ACID 500 MG TAB PO (08:08)
[2017-05-10] MEDS: ASPIRIN 81 MG ENTERIC TAB PO (08:08)
[2017-05-10] MEDS: FLUoxetine 20 MG CAP PO (08:08)
[2017-05-10] MEDS: MULTIVITAMINS/MINERALS THERAP 1 TAB PO (08:08)
[2017-05-10] MEDS: BRIMONIDINE 0.1% OPHTH SOLN 5 ML OU ×2 (08:09→20:40)
[2017-05-10] MEDS: OMEGA-3 1050MG CAPSULE PO ×2 (08:09→20:39)
[2017-05-10] MEDS: APIXABAN 5 MG TAB (ELIQUIS) PO ×2 (08:09→20:39)
[2017-05-10 11:34] LABS: BEDSIDE GLUCOSE 375 MG/DL (80-115)
[2017-05-10 16:50] LABS: BEDSIDE GLUCOSE 211 MG/DL (80-115)
[2017-05-10] MEDS: TAMSULOSIN 0.4 MG CAP PO (20:39)
[2017-05-10] MEDS: SIMVASTATIN 40 MG TAB PO (20:39)
[2017-05-10] MEDS: AMIODARONE HCL 150 MG in APPROPRIATE DILUENT 1 EA IV (20:41)
[2017-05-11] MEDS: AMIODARONE HCL 150 MG in APPROPRIATE DILUENT 1 EA IV (00:27)
[2017-05-11] MEDS: IPRATROPIUM 0.5MG/ALBUTEROL 2.5MG INH SOL UD 3ML (DUONEB)(J7620) NEB ×4 (02:32→20:02)
[2017-05-11 02:39] LABS: BEDSIDE GLUCOSE 260 MG/DL (80-115)
[2017-05-11 04:39] LABS: HEMATOCRIT 42.1 % (42.0-52.0); HEMOGLOBIN 13.8 g/dl (14.0-18.0); MEAN CORPUSCULAR HEMOGLOBIN 28.9 pg (27.0-33.0); MEAN CORPUSCULAR HGB CONC 32.8 g/dl (32.0-36.5); MEAN CORPUSCULAR VOLUME 88.1 fl (80.0-96.0); PLATELET COUNT, AUTOMATED 291 10^3/uL (150-450); RED BLOOD COUNT 4.78 10^6/uL (4.30-6.10); RED CELL DISTRIBUTION WIDTH 12.7 % (11.5-14.5); WHITE BLOOD COUNT 12.4 10^3/uL (4.0-10.0)
[2017-05-11] MEDS: SLF 3 ML SYR IV ×3 (04:41→21:00)
[2017-05-11 05:11] LABS: ALBUMIN 3.7 GM/DL (3.2-5.2); ALBUMIN/GLOBULIN RATIO 0.93 (1.00-1.93); ALKALINE PHOSPHATASE 113 U/L (45-117); ALT/SGPT 29 U/L (12-78); ANION GAP 9 MEQ/L (8-16); AST/SGOT 21 U/L (7-37); BILIRUBIN,TOTAL 0.8 MG/DL (0.2-1.0); BLOOD UREA NITROGEN 41 MG/DL (7-18); CALCIUM LEVEL 8.8 MG/DL (8.8-10.2); CARBON DIOXIDE LEVEL 33 MEQ/L (21-32); CHLORIDE LEVEL 95 MEQ/L (98-107); CREATININE FOR GFR 1.21 MG/DL (0.70-1.30); GLOMERULAR FILTRATION RATE > 60.0 (>49); GLUCOSE, FASTING 208 MG/DL (70-100); MAGNESIUM LEVEL 2.2 MG/DL (1.8-2.4); POTASSIUM SERUM 3.7 MEQ/L (3.5-5.1); SODIUM LEVEL 137 MEQ/L (136-145); TOTAL PROTEIN 7.7 GM/DL (6.4-8.2)
[2017-05-11] MEDS: ASPIRIN 81 MG ENTERIC TAB PO (08:05)
[2017-05-11] MEDS: METOPROLOL TART 50 MG TAB PO ×4 (08:05→20:59)
[2017-05-11] MEDS: OMEGA-3 1050MG CAPSULE PO ×2 (08:05→20:59)
[2017-05-11] MEDS: APIXABAN 5 MG TAB (ELIQUIS) PO ×2 (08:06→20:59)
[2017-05-11] MEDS: ASCORBIC ACID 500 MG TAB PO (08:06)
[2017-05-11] MEDS: BRIMONIDINE 0.1% OPHTH SOLN 5 ML OU ×2 (08:06→21:00)
[2017-05-11] MEDS: FLUoxetine 20 MG CAP PO (08:06)
[2017-05-11] MEDS: MULTIVITAMINS/MINERALS THERAP 1 TAB PO (08:06)
[2017-05-11] MEDS: HumaLOG INSULIN (NovoLOG) PER UNIT SC ×4 (08:10→21:00)
[2017-05-11 12:13] LABS: BEDSIDE GLUCOSE 393 MG/DL (80-115)
[2017-05-11] MEDS: FUROSEMIDE 20 MG TAB PO (13:11)
[2017-05-11 16:35] LABS: BEDSIDE GLUCOSE 209 MG/DL (80-115)
[2017-05-11 20:58] LABS: BEDSIDE GLUCOSE 327 MG/DL (80-115)
[2017-05-11] MEDS: TAMSULOSIN 0.4 MG CAP PO (20:59)
[2017-05-11] MEDS: SIMVASTATIN 40 MG TAB PO (20:59)
[2017-05-12] MEDS: IPRATROPIUM 0.5MG/ALBUTEROL 2.5MG INH SOL UD 3ML (DUONEB)(J7620) NEB ×4 (02:00→19:58)
[2017-05-12] MEDS: SLF 3 ML SYR IV ×3 (05:38→20:59)
[2017-05-12 05:45] LABS: ALBUMIN 3.3 GM/DL (3.2-5.2); ALBUMIN/GLOBULIN RATIO 1.06 (1.00-1.93); ALKALINE PHOSPHATASE 104 U/L (45-117); ALT/SGPT 26 U/L (12-78); ANION GAP 8 MEQ/L (8-16); AST/SGOT 16 U/L (7-37); BILIRUBIN,TOTAL 0.7 MG/DL (0.2-1.0); BLOOD UREA NITROGEN 43 MG/DL (7-18); CALCIUM LEVEL 7.9 MG/DL (8.8-10.2); CARBON DIOXIDE LEVEL 30 MEQ/L (21-32); CHLORIDE LEVEL 100 MEQ/L (98-107); CREATININE FOR GFR 1.09 MG/DL (0.70-1.30); GLOMERULAR FILTRATION RATE > 60.0 (>49); GLUCOSE, FASTING 217 MG/DL (70-100); MAGNESIUM LEVEL 2.4 MG/DL (1.8-2.4); POTASSIUM SERUM 3.9 MEQ/L (3.5-5.1); SODIUM LEVEL 138 MEQ/L (136-145); TOTAL PROTEIN 6.4 GM/DL (6.4-8.2)
[2017-05-12 05:47] LABS: HEMATOCRIT 38.3 % (42.0-52.0); HEMOGLOBIN 12.6 g/dl (14.0-18.0); MEAN CORPUSCULAR HEMOGLOBIN 28.8 pg (27.0-33.0); MEAN CORPUSCULAR HGB CONC 32.9 g/dl (32.0-36.5); MEAN CORPUSCULAR VOLUME 87.6 fl (80.0-96.0); PLATELET COUNT, AUTOMATED 269 10^3/uL (150-450); RED BLOOD COUNT 4.37 10^6/uL (4.30-6.10); RED CELL DISTRIBUTION WIDTH 12.6 % (11.5-14.5); WHITE BLOOD COUNT 10.6 10^3/uL (4.0-10.0)
[2017-05-12] MEDS: FUROSEMIDE 20 MG TAB PO (09:08)
[2017-05-12] MEDS: MULTIVITAMINS/MINERALS THERAP 1 TAB PO (09:08)
[2017-05-12] MEDS: FLUoxetine 20 MG CAP PO (09:09)
[2017-05-12] MEDS: OMEGA-3 1050MG CAPSULE PO ×2 (09:09→20:57)
[2017-05-12] MEDS: ASPIRIN 81 MG ENTERIC TAB PO (09:09)
[2017-05-12] MEDS: ASCORBIC ACID 500 MG TAB PO (09:09)
[2017-05-12] MEDS: APIXABAN 5 MG TAB (ELIQUIS) PO ×2 (09:09→20:56)
[2017-05-12] MEDS: HumaLOG INSULIN (NovoLOG) PER UNIT SC ×4 (09:11→20:58)
[2017-05-12] MEDS: BRIMONIDINE 0.1% OPHTH SOLN 5 ML OU ×2 (09:20→20:58)
[2017-05-12] MEDS: METOPROLOL TART 50 MG TAB PO ×4 (09:20→20:57)
[2017-05-12 17:07] LABS: BEDSIDE GLUCOSE 192 MG/DL (80-115)
[2017-05-12 20:57] LABS: BEDSIDE GLUCOSE 285 MG/DL (80-115)
[2017-05-12] MEDS: SIMVASTATIN 40 MG TAB PO (20:57)
[2017-05-12] MEDS: diphenhydrAMINE CREAM 30GM TOP (20:59)
[2017-05-12] MEDS: TAMSULOSIN 0.4 MG CAP PO (21:05)
[2017-05-13] MEDS: IPRATROPIUM 0.5MG/ALBUTEROL 2.5MG INH SOL UD 3ML (DUONEB)(J7620) NEB ×4 (02:00→20:41)
[2017-05-13 03:47] LABS: BEDSIDE GLUCOSE 393 MG/DL (80-115)
[2017-05-13] MEDS: SLF 3 ML SYR IV ×3 (04:15→21:15)
[2017-05-13 05:43] LABS: HEMATOCRIT 40.4 % (42.0-52.0); HEMOGLOBIN 13.1 g/dl (14.0-18.0); MEAN CORPUSCULAR HEMOGLOBIN 28.9 pg (27.0-33.0); MEAN CORPUSCULAR HGB CONC 32.4 g/dl (32.0-36.5); MEAN CORPUSCULAR VOLUME 89.2 fl (80.0-96.0); PLATELET COUNT, AUTOMATED 244 10^3/uL (150-450); RED BLOOD COUNT 4.53 10^6/uL (4.30-6.10); RED CELL DISTRIBUTION WIDTH 12.6 % (11.5-14.5); WHITE BLOOD COUNT 9.4 10^3/uL (4.0-10.0)
[2017-05-13 05:59] LABS: ALBUMIN/GLOBULIN RATIO 0.86 (1.00-1.93); ALKALINE PHOSPHATASE 99 U/L (45-117); ALT/SGPT 26 U/L (12-78); ANION GAP 6 MEQ/L (8-16); AST/SGOT 23 U/L (7-37); BILIRUBIN,TOTAL 0.7 MG/DL (0.2-1.0); BLOOD UREA NITROGEN 39 MG/DL (7-18); CALCIUM LEVEL 8.1 MG/DL (8.8-10.2); CARBON DIOXIDE LEVEL 27 MEQ/L (21-32); CHLORIDE LEVEL 102 MEQ/L (98-107); CREATININE FOR GFR 1.29 MG/DL (0.70-1.30); GLOMERULAR FILTRATION RATE 59.5 (>49); GLUCOSE, FASTING 212 MG/DL (70-100); MAGNESIUM LEVEL 2.3 MG/DL (1.8-2.4); POTASSIUM SERUM 4.1 MEQ/L (3.5-5.1); SODIUM LEVEL 135 MEQ/L (136-145); TOTAL PROTEIN 6.5 GM/DL (6.4-8.2)
[2017-05-13] MEDS: OMEGA-3 1050MG CAPSULE PO ×2 (08:42→21:14)
[2017-05-13] MEDS: ASCORBIC ACID 500 MG TAB PO (08:42)
[2017-05-13] MEDS: APIXABAN 5 MG TAB (ELIQUIS) PO ×2 (08:42→21:14)
[2017-05-13] MEDS: ASPIRIN 81 MG ENTERIC TAB PO (08:42)
[2017-05-13] MEDS: FUROSEMIDE 20 MG TAB PO (08:42)
[2017-05-13] MEDS: HumaLOG INSULIN (NovoLOG) PER UNIT SC ×4 (08:42→21:00)
[2017-05-13] MEDS: BRIMONIDINE 0.1% OPHTH SOLN 5 ML OU ×2 (08:43→21:15)
[2017-05-13] MEDS: METOPROLOL TART 50 MG TAB PO ×4 (08:43→21:14)
[2017-05-13] MEDS: FLUoxetine 20 MG CAP PO (08:43)
[2017-05-13] MEDS: MULTIVITAMINS/MINERALS THERAP 1 TAB PO (08:43)
[2017-05-13 11:48] LABS: BEDSIDE GLUCOSE 328 MG/DL (80-115)
[2017-05-13 17:23] LABS: BEDSIDE GLUCOSE 168 MG/DL (80-115)
[2017-05-13 21:14] LABS: BEDSIDE GLUCOSE 243 MG/DL (80-115)
[2017-05-13] MEDS: TAMSULOSIN 0.4 MG CAP PO (21:14)
[2017-05-13] MEDS: SIMVASTATIN 40 MG TAB PO (21:14)
[2017-05-14] MEDS: IPRATROPIUM 0.5MG/ALBUTEROL 2.5MG INH SOL UD 3ML (DUONEB)(J7620) NEB (02:00)
[2017-05-14 06:00] LABS: HEMATOCRIT 38.6 % (42.0-52.0); HEMOGLOBIN 12.6 g/dl (14.0-18.0); MEAN CORPUSCULAR HEMOGLOBIN 29.1 pg (27.0-33.0); MEAN CORPUSCULAR HGB CONC 32.6 g/dl (32.0-36.5); MEAN CORPUSCULAR VOLUME 89.1 fl (80.0-96.0); PLATELET COUNT, AUTOMATED 231 10^3/uL (150-450); RED BLOOD COUNT 4.33 10^6/uL (4.30-6.10); RED CELL DISTRIBUTION WIDTH 12.5 % (11.5-14.5); WHITE BLOOD COUNT 9.2 10^3/uL (4.0-10.0)
[2017-05-14] MEDS: SLF 3 ML SYR IV (06:00)
[2017-05-14 06:29] LABS: ALBUMIN 3.2 GM/DL (3.2-5.2); ALBUMIN/GLOBULIN RATIO 0.94 (1.00-1.93); ALKALINE PHOSPHATASE 102 U/L (45-117); ALT/SGPT 27 U/L (12-78); ANION GAP 5 MEQ/L (8-16); AST/SGOT 16 U/L (7-37); BILIRUBIN,TOTAL 0.6 MG/DL (0.2-1.0); BLOOD UREA NITROGEN 40 MG/DL (7-18); CALCIUM LEVEL 8.3 MG/DL (8.8-10.2); CARBON DIOXIDE LEVEL 30 MEQ/L (21-32); CHLORIDE LEVEL 105 MEQ/L (98-107); CREATININE FOR GFR 1.08 MG/DL (0.70-1.30); GLOMERULAR FILTRATION RATE > 60.0 (>49); GLUCOSE, FASTING 231 MG/DL (70-100); MAGNESIUM LEVEL 2.3 MG/DL (1.8-2.4); POTASSIUM SERUM 4.6 MEQ/L (3.5-5.1); SODIUM LEVEL 140 MEQ/L (136-145); TOTAL PROTEIN 6.6 GM/DL (6.4-8.2)
[2017-05-14] MEDS: HumaLOG INSULIN (NovoLOG) PER UNIT SC (07:50)
[2017-05-14] MEDS: OMEGA-3 1050MG CAPSULE PO (08:48)
[2017-05-14] MEDS: MULTIVITAMINS/MINERALS THERAP 1 TAB PO (08:48)
[2017-05-14] MEDS: FLUoxetine 20 MG CAP PO (08:48)
[2017-05-14] MEDS: FUROSEMIDE 20 MG TAB PO (08:49)
[2017-05-14] MEDS: METOPROLOL TART 50 MG TAB PO (08:49)
[2017-05-14] MEDS: ASCORBIC ACID 500 MG TAB PO (08:49)
[2017-05-14] MEDS: APIXABAN 5 MG TAB (ELIQUIS) PO (08:49)
[2017-05-14] MEDS: BRIMONIDINE 0.1% OPHTH SOLN 5 ML OU (08:50)
[2017-05-14] MEDS: ASPIRIN 81 MG ENTERIC TAB PO (08:50)
[2017-05-14] MEDS: diphenhydrAMINE CREAM 30GM TOP (08:51)
== END 2017-05-14 10:35 | disposition home or self-care (01) | DRG 292 ==
LOC: M PCU 05-08 14:05 → M ED 15:14 → M ED INP 19:06
DX: I11.0 Hypertensive heart disease with heart failure (principal); Z68.41 Body mass index [BMI] 40.0-44.9, adult; I48.92 Unspecified atrial flutter; I50.33 Acute on chronic diastolic (congestive) heart failure; N40.0 Benign prostatic hyperplasia without lower urinary tract symptoms; E66.01 Morbid (severe) obesity due to excess calories; J44.9 Chronic obstructive pulmonary disease, unspecified; G47.33 Obstructive sleep apnea (adult) (pediatric); F32.9 Major depressive disorder, single episode, unspecified; E11.9 Type 2 diabetes mellitus without complications; E78.5 Hyperlipidemia, unspecified; Z79.01 Long term (current) use of anticoagulants; Z79.82 Long term (current) use of aspirin; Z79.84 Long term (current) use of oral hypoglycemic drugs; Z79.899 Other long term (current) drug therapy; Z91.040 Latex allergy status; Z88.1 Allergy status to other antibiotic agents; Z99.89 Dependence on other enabling machines and devices

== ENCOUNTER → 2017-05-07 | Outpatient (CLI) | payer MEDICARE | LOC: M SMT 14:00 | DX: J43.2 Centrilobular emphysema (principal); J98.4 Other disorders of lung ==

== ENCOUNTER → 2017-05-31 | Outpatient (REF) | payer MEDICARE ==
[2017-05-31 16:08] LABS: ANION GAP 9 MEQ/L (8-16); BLOOD UREA NITROGEN 34 MG/DL (7-18); CALCIUM LEVEL 8.4 MG/DL (8.8-10.2); CARBON DIOXIDE LEVEL 30 MEQ/L (21-32); CHLORIDE LEVEL 102 MEQ/L (98-107); CREATININE FOR GFR 1.29 MG/DL (0.70-1.30); GLOMERULAR FILTRATION RATE 59.5 (>49); GLUCOSE, FASTING 262 MG/DL (70-100); SODIUM LEVEL 141 MEQ/L (136-145)
[2017-05-31 16:30] LABS: ESTIMATED AVERAGE GLUCOSE 203 MG/DL (60-110); HEMOGLOBIN A1c 8.7 %
== END ==
LOC: M SFHCPLAZ 14:25
DX: E11.65 Type 2 diabetes mellitus with hyperglycemia (principal)
CPT/HCPCS: 83036

== ENCOUNTER 2017-08-25 13:52 | Inpatient (IN) | payer MEDICARE ==
[2017-08-25 15:15] LABS: BASO # 0.1 10^3/uL (0.0-0.2); BASO % 0.3 % (0.0-1.0); EOS % 0.2 % (0.0-3.0); HEMATOCRIT 43.6 % (42.0-52.0); HEMOGLOBIN 14.2 g/dl (13.5-17.5); IMMATURE GRANULOCYTE % 0.4 % (0-3.0); LYMPH # 1.1 10^3/uL (1.5-4.5); LYMPH % 6.8 % (24.0-44.0); MEAN CORPUSCULAR HEMOGLOBIN 29.6 pg (27.0-33.0); MEAN CORPUSCULAR HGB CONC 32.6 g/dl (32.0-36.5); MEAN CORPUSCULAR VOLUME 90.8 fl (80.0-96.0); MONO # 0.9 10^3/uL (0.0-0.8); MONO % 5.8 % (0.0-5.0); NEUTROPHILS # 13.9 10^3/uL (1.8-7.7); NEUTROPHILS % 86.5 % (36.0-66.0); PLATELET COUNT, AUTOMATED 237 10^3/uL (150-450); WHITE BLOOD COUNT 16.1 10^3/uL (4.0-10.0)
[2017-08-25] MEDS: NS 1,000 ML IV ×2 (15:17)
[2017-08-25 15:28] LABS: LACTIC ACID SEPSIS PROTOCOL 1.5 MMOL/L (0.4-2.0)
[2017-08-25 15:30] LABS: ANION GAP 6 MEQ/L (8-16); BLOOD UREA NITROGEN 25 MG/DL (7-18); C REACTIVE PROTEIN QUANTITATIV 7.21 MG/DL (0.00-0.30); CALCIUM LEVEL 8.5 MG/DL (8.8-10.2); CARBON DIOXIDE LEVEL 31 MEQ/L (21-32); CHLORIDE LEVEL 101 MEQ/L (98-107); CREATININE FOR GFR 1.22 MG/DL (0.70-1.30); GLOMERULAR FILTRATION RATE > 60.0 (>49); GLUCOSE, FASTING 239 MG/DL (70-100); POTASSIUM SERUM 3.8 MEQ/L (3.5-5.1); SODIUM LEVEL 138 MEQ/L (136-145)
[2017-08-25] MEDS: CLINDAMYCIN 600 MG in APPROPRIATE DILUENT 1 EA IV (16:25)
[2017-08-25] MEDS: ACETAMINOPHEN 325 MG TAB PO (17:37)
[2017-08-25] MEDS ORDERED: GLUCAGON FOR INJ 1 MG VIAL (J1610) SC (18:15)
[2017-08-25] MEDS ORDERED: DEXTROSE 50% 50 ML SYRINGE IV (18:15)
[2017-08-25] MEDS ORDERED: ACETAMINOPHEN TAB 650MG DOSE (2X325MG) PO (18:15)
[2017-08-25] MEDS ORDERED: ONDANSETRON 4MG/2ML VIAL (J2405) IV (18:15)
[2017-08-25] MEDS ORDERED: GLUCOSE 4 GM CHEW TABLET PO (18:15)
[2017-08-25 18:32] LABS: ERYTHROCYTE SEDIMENTATION RATE 8 mm/hr (0-20)
[2017-08-25] MEDS: IPRATROPIUM 0.5MG/ALBUTEROL 2.5MG INH SOL UD 3ML (DUONEB)(J7620) NEB ×2 (20:00→22:07)
[2017-08-25 20:41] LABS: BEDSIDE GLUCOSE 188 MG/DL (80-115)
[2017-08-25] MEDS: HumaLOG INSULIN (NovoLOG) PER UNIT SC (20:43)
[2017-08-25] MEDS: CEFTAROLINE FOSAMIL 600 MG in D5W MINI-BAG PLUS 50 ML IV (21:01)
[2017-08-25] MEDS: METOPROLOL SUCC (TopROL XL) 100MG *XL* TAB PO (21:01)
[2017-08-25] MEDS: TAMSULOSIN 0.4 MG CAP PO (21:01)
[2017-08-25] MEDS: SIMVASTATIN 40 MG TAB PO (21:01)
[2017-08-25] MEDS: APIXABAN 5 MG TAB (ELIQUIS) PO (21:01)
[2017-08-26 06:09] LABS: HEMATOCRIT 39.6 % (42.0-52.0); HEMOGLOBIN 12.9 g/dl (13.5-17.5); MEAN CORPUSCULAR HEMOGLOBIN 29.7 pg (27.0-33.0); MEAN CORPUSCULAR HGB CONC 32.6 g/dl (32.0-36.5); MEAN CORPUSCULAR VOLUME 91.2 fl (80.0-96.0); PLATELET COUNT, AUTOMATED 184 10^3/uL (150-450); RED BLOOD COUNT 4.34 10^6/uL (4.30-6.10); RED CELL DISTRIBUTION WIDTH 13.9 % (11.5-14.5); WHITE BLOOD COUNT 8.8 10^3/uL (4.0-10.0)
[2017-08-26 06:25] LABS: ALBUMIN/GLOBULIN RATIO 0.88 (1.00-1.93); ALKALINE PHOSPHATASE 77 U/L (45-117); ALT/SGPT 23 U/L (12-78); ANION GAP 6 MEQ/L (8-16); AST/SGOT 14 U/L (7-37); BILIRUBIN,TOTAL 1.3 MG/DL (0.2-1.0); BLOOD UREA NITROGEN 21 MG/DL (7-18); CALCIUM LEVEL 8.2 MG/DL (8.8-10.2); CARBON DIOXIDE LEVEL 30 MEQ/L (21-32); CHLORIDE LEVEL 102 MEQ/L (98-107); GLOMERULAR FILTRATION RATE > 60.0 (>49); GLUCOSE, FASTING 144 MG/DL (70-100); MAGNESIUM LEVEL 1.9 MG/DL (1.8-2.4); POTASSIUM SERUM 3.4 MEQ/L (3.5-5.1); SODIUM LEVEL 138 MEQ/L (136-145); TOTAL PROTEIN 6.4 GM/DL (6.4-8.2)
[2017-08-26] MEDS: IPRATROPIUM 0.5MG/ALBUTEROL 2.5MG INH SOL UD 3ML (DUONEB)(J7620) NEB ×3 (07:40→20:00)
[2017-08-26] MEDS: POTASSIUM CHLORIDE 10 MEQ SR TABLET PO (07:54)
[2017-08-26] MEDS: ASCORBIC ACID 500 MG TAB PO (07:55)
[2017-08-26] MEDS: ASPIRIN 81 MG ENTERIC TAB PO (07:55)
[2017-08-26] MEDS: OMEGA-3 1050MG CAPSULE PO (07:55)
[2017-08-26] MEDS: MULTIVITAMINS/MINERALS THERAP 1 TAB PO (07:55)
[2017-08-26] MEDS: FUROSEMIDE 80 MG TAB PO (07:55)
[2017-08-26] MEDS: APIXABAN 5 MG TAB (ELIQUIS) PO ×2 (07:55→21:33)
[2017-08-26] MEDS: FLUoxetine 20 MG CAP PO (07:55)
[2017-08-26] MEDS: HumaLOG INSULIN (NovoLOG) PER UNIT SC ×4 (07:56→21:32)
[2017-08-26] MEDS: CEFTAROLINE FOSAMIL 600 MG in D5W MINI-BAG PLUS 50 ML IV ×2 (07:56→21:32)
[2017-08-26] MEDS: ADVAIR HFA 115/21MCG INHALER INH ×2 (11:28→21:00)
[2017-08-26 11:36] LABS: BEDSIDE GLUCOSE 250 MG/DL (80-115)
[2017-08-26] MEDS: PREVNAR 13 VACCINE SYRINGE (CPT CODE:90670) IM (13:50)
[2017-08-26 16:31] LABS: BEDSIDE GLUCOSE 224 MG/DL (80-115)
[2017-08-26] MEDS: TAMSULOSIN 0.4 MG CAP PO (17:27)
[2017-08-26] MEDS: METOPROLOL SUCC (TopROL XL) 100MG *XL* TAB PO (17:27)
[2017-08-26 20:53] LABS: BEDSIDE GLUCOSE 266 MG/DL (80-115)
[2017-08-26] MEDS: SIMVASTATIN 40 MG TAB PO (21:33)
[2017-08-26] MEDS: LEVEMIR (INSULIN DETEMIR) 1 UNITS/0.01ML SC (21:33)
[2017-08-27] MEDS: IPRATROPIUM 0.5MG/ALBUTEROL 2.5MG INH SOL UD 3ML (DUONEB)(J7620) NEB ×3 (01:45→13:45)
[2017-08-27 06:09] LABS: HEMATOCRIT 40.3 % (42.0-52.0); MEAN CORPUSCULAR HEMOGLOBIN 29.5 pg (27.0-33.0); MEAN CORPUSCULAR HGB CONC 32.3 g/dl (32.0-36.5); MEAN CORPUSCULAR VOLUME 91.6 fl (80.0-96.0); PLATELET COUNT, AUTOMATED 198 10^3/uL (150-450); RED CELL DISTRIBUTION WIDTH 13.9 % (11.5-14.5); WHITE BLOOD COUNT 9.3 10^3/uL (4.0-10.0)
[2017-08-27 06:22] LABS: C REACTIVE PROTEIN QUANTITATIV 9.06 MG/DL (0.00-0.30)
[2017-08-27 06:32] LABS: ALBUMIN/GLOBULIN RATIO 1.07 (1.00-1.93); ALKALINE PHOSPHATASE 75 U/L (45-117); ALT/SGPT 22 U/L (12-78); ANION GAP 8 MEQ/L (8-16); AST/SGOT 16 U/L (7-37); BILIRUBIN,TOTAL 0.8 MG/DL (0.2-1.0); BLOOD UREA NITROGEN 22 MG/DL (7-18); CARBON DIOXIDE LEVEL 31 MEQ/L (21-32); CHLORIDE LEVEL 102 MEQ/L (98-107); CREATININE FOR GFR 1.19 MG/DL (0.70-1.30); GLOMERULAR FILTRATION RATE > 60.0 (>49); GLUCOSE, FASTING 169 MG/DL (70-100); MAGNESIUM LEVEL 2.2 MG/DL (1.8-2.4); SODIUM LEVEL 141 MEQ/L (136-145); TOTAL PROTEIN 5.8 GM/DL (6.4-8.2)
[2017-08-27] MEDS: ADVAIR HFA 115/21MCG INHALER INH (07:23)
[2017-08-27] MEDS: FUROSEMIDE 80 MG TAB PO (08:12)
[2017-08-27] MEDS: FLUoxetine 20 MG CAP PO (08:12)
[2017-08-27] MEDS: OMEGA-3 1050MG CAPSULE PO (08:12)
[2017-08-27] MEDS: CEFTAROLINE FOSAMIL 600 MG in D5W MINI-BAG PLUS 50 ML IV (08:12)
[2017-08-27] MEDS: ASPIRIN 81 MG ENTERIC TAB PO (08:12)
[2017-08-27] MEDS: MULTIVITAMINS/MINERALS THERAP 1 TAB PO (08:12)
[2017-08-27] MEDS: HumaLOG INSULIN (NovoLOG) PER UNIT SC ×2 (08:12→12:46)
[2017-08-27] MEDS: ASCORBIC ACID 500 MG TAB PO (08:12)
[2017-08-27] MEDS: APIXABAN 5 MG TAB (ELIQUIS) PO (08:12)
[2017-08-27 11:38] LABS: BEDSIDE GLUCOSE 274 MG/DL (80-115)
== END 2017-08-27 14:51 | disposition home or self-care (01) | DRG 603 ==
LOC: M ED 13:52 → M ED INP 18:06 → M MSPAV 20:30
DX: L03.116 Cellulitis of left lower limb (principal); I50.32 Chronic diastolic (congestive) heart failure; Z68.41 Body mass index [BMI] 40.0-44.9, adult; E66.01 Morbid (severe) obesity due to excess calories; I11.0 Hypertensive heart disease with heart failure; E11.9 Type 2 diabetes mellitus without complications; F32.9 Major depressive disorder, single episode, unspecified; G47.33 Obstructive sleep apnea (adult) (pediatric); I48.91 Unspecified atrial fibrillation; J44.9 Chronic obstructive pulmonary disease, unspecified; E78.5 Hyperlipidemia, unspecified; N40.0 Benign prostatic hyperplasia without lower urinary tract symptoms; Z79.01 Long term (current) use of anticoagulants; Z79.82 Long term (current) use of aspirin; Z79.84 Long term (current) use of oral hypoglycemic drugs; Z79.899 Other long term (current) drug therapy; Z91.040 Latex allergy status; Z88.1 Allergy status to other antibiotic agents

== ENCOUNTER → 2017-12-13 | Outpatient (REF) | payer MEDICARE | LOC: M SFHCPLAZ 18:22 | DX: C44.310 Basal cell carcinoma of skin of unspecified parts of face (principal) | CPT/HCPCS: 88305 ==

== ENCOUNTER 2018-03-07 17:27 | Emergency (ER) | payer MEDICARE | END 2018-03-07 17:50 | disposition home or self-care (01) | LOC: M ED 17:27 | DX: S02.5XXA Fracture of tooth (traumatic), initial encounter for closed fracture (principal); K04.7 Periapical abscess without sinus; K02.9 Dental caries, unspecified; X58.XXXA Exposure to other specified factors, initial encounter; Y92.9 Unspecified place or not applicable; Y93.9 Activity, unspecified; Y99.9 Unspecified external cause status; I50.9 Heart failure, unspecified; E11.9 Type 2 diabetes mellitus without complications; I10 Essential (primary) hypertension; E78.5 Hyperlipidemia, unspecified; J44.9 Chronic obstructive pulmonary disease, unspecified; N40.0 Benign prostatic hyperplasia without lower urinary tract symptoms; Z87.891 Personal history of nicotine dependence; Z79.01 Long term (current) use of anticoagulants; Z79.899 Other long term (current) drug therapy; Z88.8 Allergy status to other drugs, medicaments and biological substances; Z91.040 Latex allergy status | CPT/HCPCS: 99282 ==

== ENCOUNTER → 2018-04-04 | Outpatient (REF) | payer MEDICARE ==
[~2018-04-04] MED LIST changes: +ACET-683 PO; +ACET650T3 PO; +AUGM875T28 PO; +AZIT-10 PO; -AZIT250T8 PO; +DOXY-350 PO; +FISH100049 PO; +FLEC50HA PO; -FLEC50TA PO; +FLOM0.4C39 PO; -FLOM5CAP PO; +FLUO20CA19 PO; +FURO20TA2 PO; +FURO80TA2 PO; +JARD1TAB PO; +LIDO1SOL7 SSP; +LISI10TA4 PO; +LOPR1TAB6 PO; +MELO15TA28 PO; -MELO15TA4 PO; +METO100T5 PO; +METO1TAB33 PO; +METO1TAB7; +NORCOTAB PO; +TOUJ1.2I SC; +TRUL10IN SC; +ZOCO40TA PO
[2018-04-04 13:18] LABS: BASO # 0.1 10^3/uL (0.0-0.2); BASO % 0.6 % (0.0-1.0); EOS # 0.3 10^3/uL (0.0-0.50); EOS % 2.8 % (0.0-3.0); HEMATOCRIT 46.3 % (42.0-52.0); HEMOGLOBIN 15.2 g/dl (13.5-17.5); LYMPH # 2.7 10^3/uL (1.5-4.5); LYMPH % 24.4 % (24.0-44.0); MEAN CORPUSCULAR HEMOGLOBIN 29.7 pg (27.0-33.0); MEAN CORPUSCULAR HGB CONC 32.8 g/dl (32.0-36.5); MEAN CORPUSCULAR VOLUME 90.6 fl (80.0-96.0); MONO # 0.8 10^3/uL (0.0-0.8); MONO % 7.7 % (0.0-5.0); NEUTROPHILS # 6.9 10^3/uL (1.8-7.7); NEUTROPHILS % 63.6 % (36.0-66.0); PLATELET COUNT, AUTOMATED 252 10^3/uL (150-450); RED BLOOD COUNT 5.11 10^6/uL (4.30-6.10); WHITE BLOOD COUNT 10.9 10^3/uL (4.0-10.0)
[2018-04-04 13:24] LABS: ALBUMIN 3.6 GM/DL (3.2-5.2); ALT/SGPT 28 U/L (12-78); BILIRUBIN,TOTAL 1.1 MG/DL (0.2-1.0); BLOOD UREA NITROGEN 32 MG/DL (7-18); CALCIUM LEVEL 8.5 MG/DL (8.8-10.2); CARBON DIOXIDE LEVEL 30 MEQ/L (21-32); CHLORIDE LEVEL 101 MEQ/L (98-107); CHOLESTEROL LEVEL 102 MG/DL (<200); CHOLESTEROL RISK RATIO 2.684 (<5); CREATININE FOR GFR 1.04 MG/DL (0.70-1.30); GLOMERULAR FILTRATION RATE > 60.0 (>49); GLUCOSE, FASTING 162 MG/DL (70-100); HDL CHOLESTEROL 38 MG/DL (>40); LDL CHOLESTEROL 20 MG/DL (<100); NON-HDL-C 64 MG/DL; POTASSIUM SERUM 4.2 MEQ/L (3.5-5.1); SODIUM LEVEL 139 MEQ/L (136-145); TOTAL PROTEIN 6.5 GM/DL (6.4-8.2); TRIGLYCERIDES LEVEL 222 MG/DL (<150)
[2018-04-04 13:45] LABS: HEMOGLOBIN A1c 8.4 %
[2018-04-04 13:51] LABS: MAU/CREAT RATIO 17.9 MCG/MG (0.0-30.0)
== END ==
LOC: M SFHCPLAZ 11:10
DX: E11.9 Type 2 diabetes mellitus without complications (principal); E78.5 Hyperlipidemia, unspecified; J44.9 Chronic obstructive pulmonary disease, unspecified

== ENCOUNTER → 2018-08-14 | Outpatient (REF) | payer MEDICARE ==
[~2018-08-14] MED LIST changes: +HYDR-3715 PO; -LIDO1SOL7 SSP; +LIDO1SOL8 SSP; -NORCOTAB PO
[2018-08-14 16:22] LABS: CHOLESTEROL RISK RATIO 2.894 (<5)
[2018-08-14 16:52] LABS: HEMOGLOBIN A1c 7.8 %
[2018-08-15 11:05] LABS: CREATININE, URINE 26.3 MG/DL; MALB URINE SIEMENS 11.9 MG/L; MAU/CREAT RATIO 45.2 MCG/MG (0.0-30.0)
== END ==
LOC: M SFHCPLAZ 14:13
DX: E11.9 Type 2 diabetes mellitus without complications (principal)

== ENCOUNTER → 2018-08-29 | Outpatient (REF) | payer MEDICARE ==
[2018-08-29 18:52] LABS: CREATININE, URINE < 13.0 MG/DL; MALB URINE SIEMENS < 5.0 MG/L
== END ==
LOC: M SFHCPLAZ 14:34
PROVIDERS: ATTEND Student in an Organized Health Care Education/Training Program
DX: E11.9 Type 2 diabetes mellitus without complications (principal)

== ENCOUNTER → 2018-11-20 | Outpatient (REF) | payer MEDICARE ==
[~2018-11-20] MED LIST changes: +LISI20TA20 PO; -LISI20TA3 PO; +METF-791 PO; -METF500T4 PO
[2018-11-20 18:24] LABS: HEMOGLOBIN A1c 7.9 %
[2018-11-20 18:28] LABS: BLOOD UREA NITROGEN 21 MG/DL (7-18); CARBON DIOXIDE LEVEL 32 MEQ/L (21-32); CHLORIDE LEVEL 104 MEQ/L (98-107); CREATININE FOR GFR 0.98 MG/DL (0.70-1.30); GLOMERULAR FILTRATION RATE > 60.0 (>49); GLUCOSE, FASTING 147 MG/DL (70-100); POTASSIUM SERUM 4.1 MEQ/L (3.5-5.1); SODIUM LEVEL 140 MEQ/L (136-145)
[2018-11-20 18:44] LABS: CREATININE, URINE 23.9 MG/DL; MALB URINE SIEMENS < 5.0 MG/L; MAU/CREAT RATIO 20.9 MCG/MG (0.0-30.0)
== END ==
LOC: M SFHCPLAZ 15:41
DX: E11.9 Type 2 diabetes mellitus without complications (principal)
CPT/HCPCS: 36415; 80048; 82043; 83036; G0463

== ENCOUNTER 2018-12-18 16:18 | Emergency (ER) | payer MEDICARE ==
[~2018-12-18] VITALS: Ht 188 cm; Wt 136.2 kg
--- NOTE | 2018-12-18 17:18 | REP ---
PA and lateral chest: Comparisons are 05/07/2017, 12/18/2016 and 06/06/2014. There is hyperinflation. There are no infiltrates or pleural effusions. There is a stable granuloma in the right mid lung. There is minor atelectasis inferiorly in the left lung. Cardiac size is normal. The lupis, mediastinum, skeletal structures are unchanged. Impression: Hyperinflation. Minor atelectasis inferiorly in the left lung. Stable granuloma in the right lung. Electronically Signed by Bronson Foster MD 12/18/2018 05:10 P
[2018-12-18] MEDS: IPRATROPIUM 0.5MG/ALBUTEROL 2.5MG INH SOL UD 3ML (DUONEB)(J7620) NEB PRN ×3 (17:43→17:59)
[2018-12-18] MEDS ORDERED: predniSONE 20 MG TAB PO ONE (17:45)
[2018-12-18] MEDS ORDERED: PRED20TA PO (18:13)
[2018-12-18] MEDS ORDERED: AZIT-12 PO (18:13)
[2018-12-18 18:25] VITALS: BP 107/65
== END 2018-12-18 18:27 | disposition home or self-care (01) ==
LOC: M ED 16:18
DX: J44.1 Chronic obstructive pulmonary disease with (acute) exacerbation (principal); J98.11 Atelectasis; R06.02 Shortness of breath; I48.91 Unspecified atrial fibrillation; I50.9 Heart failure, unspecified; E11.9 Type 2 diabetes mellitus without complications; I10 Essential (primary) hypertension; I48.92 Unspecified atrial flutter; J45.909 Unspecified asthma, uncomplicated; J44.9 Chronic obstructive pulmonary disease, unspecified; K21.9 Gastro-esophageal reflux disease without esophagitis; N40.0 Benign prostatic hyperplasia without lower urinary tract symptoms; J30.2 Other seasonal allergic rhinitis; Z87.891 Personal history of nicotine dependence; Z82.49 Family history of ischemic heart disease and other diseases of the circulatory system; Z82.3 Family history of stroke; Z79.84 Long term (current) use of oral hypoglycemic drugs; Z79.899 Other long term (current) drug therapy; Z88.1 Allergy status to other antibiotic agents; Z91.040 Latex allergy status

== ENCOUNTER → 2019-01-08 | Outpatient (CLI) | payer MEDICARE ==
[~2019-01-08] MED LIST changes: +AZIT-12 PO; -AZIT500T2 PO; +AZIT500T5 PO
--- NOTE | 2019-01-08 15:35 | REP ---
REASON: Tobacco abuse. COMPARISON: None. As per the protocol only lung window images were sent to the read station for interpretation. Bilateral asymmetric densities are seen in the lung base. On the right this nodular appearing density measures 1.6 cm and on the left this bilobed nodular density measures approximately 2.8 cm in its greatest dimension. There are calcified right hilar lymph nodes and there is a 1 cm sized calcification in the inferior aspect of the right upper lobe. The imaged upper abdomen and imaged osseous structures are grossly within normal limits. IMPRESSION: 1. Bilateral lower lobe irregular nodular densities as described above. According to the revised Fleischner's Society criteria these lesions represent category 4B lesions for which PET/CT should be considered at this time. 2. Benign hilar calcifications and right upper lobe calcification as described above. Electronically Signed by Sy Singer DO 01/08/2019 04:58 P
== END ==
LOC: M RAD 12:44
PROVIDERS: ATTEND Internal Medicine Pulmonary Disease
DX: Z12.2 Encounter for screening for malignant neoplasm of respiratory organs (principal); Z87.891 Personal history of nicotine dependence; R91.8 Other nonspecific abnormal finding of lung field

== ENCOUNTER 2019-04-02 11:32 | Day surgery (SDC) | payer MEDICARE ==
[~2019-04-02] VITALS: Ht 190.5 cm; Wt 134.9 kg
[~2019-04-02 11:32] MED LIST changes: +NS 1,000 ML IV ONE; +OZEM2INJ2 SC; -SIMV20TA2 PO; +SIMV20TA22 PO
[2019-04-02] MEDS ORDERED: LIDOCAINE 2% INJ 100 MG/5 ML SDV (FOR ANES.) As Ordered ONE (12:55)
[2019-04-02] MEDS ORDERED: propofoL 200 MG/20 ML VIAL As Ordered ONE (12:55)
--- NOTE | 2019-04-02 13:36 | ROOR ---
Patient Name: Richard Sim Procedure Date: 04/02/2019 1:18 PM Date of : 1950 Age: 69 Room: [facility] Gender: Male Note Status: Finalized Procedure: Colonoscopy Indications: High risk colon cancer surveillance: Personal history of colonic polyps Providers: Parish Carlos Jr, MD Referring MD: George Yost Do, [facility] [place] Requesting Provider: Medicines: Propofol per Anesthesia Complications: No immediate complications. Procedure: Pre-Anesthesia Assessment: - Prior to the procedure, a History and Physical was performed, and patient medications and allergies were reviewed. The patient is competent. The risks and benefits of the procedure and the sedation options and risks were discussed with the patient. All questions were answered and informed consent was obtained. Patient identification and proposed procedure were verified by the physician and the nurse in the pre-procedure area and in the procedure room. Mental Status Examination: alert and oriented. Airway Examination: normal oropharyngeal airway and neck mobility. Respiratory Examination: clear to auscultation. CV Examination: normal. ASA Grade Assessment: II - A patient with mild systemic disease. After reviewing the risks and benefits, the patient was deemed in satisfactory condition to undergo the procedure. The anesthesia plan was to use moderate sedation / analgesia (conscious sedation). Immediately prior to administration of medications, the patient was re-assessed for adequacy to receive sedatives. The heart rate, respiratory rate, oxygen saturations, blood pressure, adequacy of pulmonary ventilation, and response to care were monitored throughout the procedure. The physical status of the patient was re-assessed after the procedure. The Colonoscope was introduced through the anus and advanced to the cecum, identified by appendiceal orifice and ileocecal valve. The colonoscopy was performed without difficulty. The patient tolerated the procedure well. The quality of the bowel preparation was adequate. Findings: The rectum, recto-sigmoid colon, cecum, appendiceal orifice and ileocecal valve appeared normal. Multiple small-mouthed diverticula were found in the sigmoid colon. A few small-mouthed diverticula were found in the descending colon, transverse colon and ascending colon. Non-bleeding external and internal hemorrhoids were found during endoscopy. The hemorrhoids were Grade II (internal hemorrhoids that prolapse but reduce spontaneously) and Grade III (internal hemorrhoids that prolapse but require manual reduction). Impression: - The rectum, recto-sigmoid colon, cecum, appendiceal orifice and ileocecal valve are normal. - Diverticulosis in the sigmoid colon. - Diverticulosis in the descending colon, in the transverse colon and in the ascending colon. - Non-bleeding external and internal hemorrhoids. - No specimens collected. Recommendation: - Discharge patient to home (ambulatory). - Repeat colonoscopy in 5 years for surveillance. Parish Carlos MD Parish Carlos Jr, MD 04/02/2019 1:35:51 PM Electronically signed by Parish Carlos Jr, MD Number of Addenda: 0 Note Initiated On: 04/02/2019 1:18 PM Estimated Blood Loss: Estimated blood loss: none.
[2019-04-02 13:55] VITALS: BP 130/88
== END 2019-04-02 14:08 | disposition home or self-care (01) ==
LOC: M OPP 11:32
PROVIDERS: ATTEND Surgery
DX: Z86.010 Personal history of colon polyps (principal); K57.30 Diverticulosis of large intestine without perforation or abscess without bleeding; K64.1 Second degree hemorrhoids; K64.2 Third degree hemorrhoids; I11.0 Hypertensive heart disease with heart failure; E78.00 Pure hypercholesterolemia, unspecified; E11.9 Type 2 diabetes mellitus without complications; F41.9 Anxiety disorder, unspecified; F32.9 Major depressive disorder, single episode, unspecified; G47.30 Sleep apnea, unspecified; I48.91 Unspecified atrial fibrillation; I48.92 Unspecified atrial flutter; I50.32 Chronic diastolic (congestive) heart failure; J43.9 Emphysema, unspecified; Z88.1 Allergy status to other antibiotic agents; Z91.040 Latex allergy status; Z79.51 Long term (current) use of inhaled steroids; Z79.01 Long term (current) use of anticoagulants; Z79.4 Long term (current) use of insulin; Z79.899 Other long term (current) drug therapy; Z87.891 Personal history of nicotine dependence

== ENCOUNTER → 2019-10-16 | Outpatient (REF) | payer MEDICARE ==
[~2019-10-16] MED LIST changes: -FLUO20CA19 PO; +FLUO20CA22 PO; -LIDO1SOL8 SSP; +LIDO2SOL17 SSP; -METF-791 PO; +METF-838 PO; -NS 1,000 ML IV ONE; +VITA-243 PO; -VITA500T PO
[2019-11-14 02:29] LABS: HEMATOCRIT 46.7 % (42.0-52.0); MEAN CORPUSCULAR HEMOGLOBIN 30.8 pg (27.0-33.0); MEAN CORPUSCULAR HGB CONC 32.1 g/dl (32.0-36.5); MEAN CORPUSCULAR VOLUME 95.9 fl (80.0-96.0); PLATELET COUNT, AUTOMATED 247 10^3/uL (150-450); RED BLOOD COUNT 4.87 10^6/uL (4.30-6.10); WHITE BLOOD COUNT 11.7 10^3/uL (4.0-10.0)
[2019-12-03 13:43] LABS: ALBUMIN 3.7 GM/DL (3.2-5.2); ALT/SGPT 25 U/L (12-78); BILIRUBIN,TOTAL 0.7 MG/DL (0.2-1.0); BLOOD UREA NITROGEN 27 MG/DL (7-18); CALCIUM LEVEL 8.6 MG/DL (8.8-10.2); CARBON DIOXIDE LEVEL 29 MEQ/L (21-32); CHLORIDE LEVEL 107 MEQ/L (98-107); GLOMERULAR FILTRATION RATE > 60.0 (>49); GLUCOSE, FASTING 180 MG/DL (70-100); POTASSIUM SERUM 4.4 MEQ/L (3.5-5.1); SODIUM LEVEL 141 MEQ/L (136-145); TOTAL PROTEIN 6.6 GM/DL (6.4-8.2)
== END ==
LOC: M PLALAB 12:11
PROVIDERS: ATTEND Internal Medicine Cardiovascular Disease
DX: I50.9 Heart failure, unspecified (principal); I48.92 Unspecified atrial flutter; I11.0 Hypertensive heart disease with heart failure; E78.5 Hyperlipidemia, unspecified

== ENCOUNTER → 2019-11-20 | Outpatient (CLI) | payer MEDICARE ==
[2019-11-20 15:42] LABS: HEMATOCRIT 45.1 % (42.0-52.0); HEMOGLOBIN 14.6 g/dl (13.5-17.5)
[2019-11-20 15:45] LABS: PERCENT SATURATION 26.9 % (19.7-50.0)
[2019-11-20 16:05] LABS: HEMOGLOBIN A1c 8.3 %
== END ==
LOC: M PLALAB 13:23
PROVIDERS: ATTEND Hospitalist
DX: E11.9 Type 2 diabetes mellitus without complications (principal)

== ENCOUNTER → 2020-03-28 | Outpatient (CLI) | payer SELFPAY | LOC: M LABSMTC 13:11 | PROVIDERS: ATTEND Pediatrics | DX: Z20.822 Contact with and (suspected) exposure to COVID-19 (principal) ==

== ENCOUNTER → 2020-08-18 | Outpatient (REF) | payer MEDICARE ==
[~2020-08-18] MED LIST changes: +LISI10TA22 PO; -LISI10TA4 PO
[2020-08-18 14:10] LABS: ALBUMIN 3.6 GM/DL (3.2-5.2); ALT/SGPT 26 U/L (12-78); BILIRUBIN,TOTAL 0.9 MG/DL (0.2-1.0); BLOOD UREA NITROGEN 26 MG/DL (7-18); CALCIUM LEVEL 8.8 MG/DL (8.8-10.2); CARBON DIOXIDE LEVEL 31 MEQ/L (21-32); CHLORIDE LEVEL 105 MEQ/L (98-107); CREATININE FOR GFR 0.87 MG/DL (0.70-1.30); GLOMERULAR FILTRATION RATE > 60.0 (>49); GLUCOSE, FASTING 170 MG/DL (70-100); POTASSIUM SERUM 4.8 MEQ/L (3.5-5.1); SODIUM LEVEL 139 MEQ/L (136-145); TOTAL PROTEIN 6.4 GM/DL (6.4-8.2)
[2020-08-18 14:19] LABS: MAU/CREAT RATIO 28.7 MCG/MG (0.0-30.0)
[2020-08-18 14:28] LABS: HEMOGLOBIN A1c 7.6 %
== END ==
LOC: M SFHCPLAZ 13:18
PROVIDERS: ATTEND Hospitalist
DX: E11.42 Type 2 diabetes mellitus with diabetic polyneuropathy (principal)

== ENCOUNTER → 2020-08-24 | Outpatient (REF) | payer MEDICARE | LOC: M SFHCPLAZ 10:55 | PROVIDERS: ATTEND Family Medicine | DX: E11.42 Type 2 diabetes mellitus with diabetic polyneuropathy (principal); G62.9 Polyneuropathy, unspecified ==

== ENCOUNTER → 2020-09-08 | Outpatient (REF) | payer MEDICARE ==
[2020-09-08 15:41] LABS: HEMATOCRIT 44.9 % (42.0-52.0); HEMOGLOBIN 14.6 g/dl (13.5-17.5); MEAN CORPUSCULAR HEMOGLOBIN 30.5 pg (27.0-33.0); MEAN CORPUSCULAR HGB CONC 32.5 g/dl (32.0-36.5); MEAN CORPUSCULAR VOLUME 93.7 fl (80.0-96.0); PLATELET COUNT, AUTOMATED 253 10^3/uL (150-450); RED BLOOD COUNT 4.79 10^6/uL (4.30-6.10); WHITE BLOOD COUNT 10.8 10^3/uL (4.0-10.0)
[2020-09-08 16:08] LABS: FERRITIN 28 NG/ML (26-388); IRON (FE) 89 UG/DL (65-175); PERCENT SATURATION 27.4 % (19.7-50.0); TOTAL IRON BINDING CAPACITY 325 UG/DL (250-450)
[2020-09-08 16:12] LABS: FOLATE > 24.0 NG/ML (>5.4); VITAMIN B12 LEVEL 731 PG/ML (247-911)
== END ==
LOC: M SFHCPLAZ 14:22
PROVIDERS: ATTEND Family Medicine
DX: E11.42 Type 2 diabetes mellitus with diabetic polyneuropathy (principal); G62.9 Polyneuropathy, unspecified

== ENCOUNTER → 2020-09-08 | Outpatient (CLI) | payer MEDICARE ==
--- NOTE | 2020-09-08 14:17 | REP ---
INDICATION: NICOTINE DEPENDENCE. COMPARISON: Comparison CT studies of the chest are dated February 27, 2019 and January 08, 2019.. TECHNIQUE: Dose reduction was performed utilizing CARE dose with automated adjustment of the kV and MAS according to patient size; iterative reconstruction, automated exposure control, as well as adaptive dose shielding. Helical scanning is acquired and 3 mm axial images re-formatted at lung window settings. FINDINGS: Preliminary digital patient financial counselor radiograph demonstrates CT calcific chinedu residuals in the right hilum and a perihilar calcified nodule. This is displayed on axial image in the right upper lobe on page 43 of 109 in series 201 of today's study. It is unchanged. The granulomatous lymph node calcifications in the right hilus are also unchanged from the prior studies. There is no evidence of hilar or mediastinal mass. There is minimal linear fibrosis at the left lung base in the lingula. No pleural effusion is seen. No infiltrate is observed. No significant pulmonary nodule is appreciated. Study is otherwise unremarkable. IMPRESSION: Lung RADS category 1 findings. Repeat screening study recommended in 1 year. <Electronically signed by Blake Mora > 09/08/20 [id number]
== END ==
LOC: M RAD 13:53
PROVIDERS: ATTEND Internal Medicine Pulmonary Disease
DX: Z12.2 Encounter for screening for malignant neoplasm of respiratory organs (principal); Z87.891 Personal history of nicotine dependence; J84.10 Pulmonary fibrosis, unspecified; E11.42 Type 2 diabetes mellitus with diabetic polyneuropathy; G62.9 Polyneuropathy, unspecified

== ENCOUNTER → 2021-01-26 | Outpatient (REF) | payer MEDICARE | LOC: M SFHCPLAZ 14:19 | PROVIDERS: ATTEND Family Medicine | DX: E11.42 Type 2 diabetes mellitus with diabetic polyneuropathy (principal); I10 Essential (primary) hypertension; E78.5 Hyperlipidemia, unspecified; I48.92 Unspecified atrial flutter ==

== ENCOUNTER → 2021-04-27 | Outpatient (CLI) | payer MEDICARE ==
[~2021-04-27] MED LIST changes: -CEFD1CAP8 PO; +CEFD300C41 PO; -LISI20TA20 PO; +LISI20TA37 PO
[2021-04-27 15:39] LABS: HEMATOCRIT 48.4 % (42.0-52.0); HEMOGLOBIN 15.7 g/dl (13.5-17.5); MEAN CORPUSCULAR HEMOGLOBIN 30.1 pg (27.0-33.0); MEAN CORPUSCULAR HGB CONC 32.4 g/dl (32.0-36.5); MEAN CORPUSCULAR VOLUME 92.9 fl (80.0-96.0); PLATELET COUNT, AUTOMATED 239 10^3/uL (150-450); RED BLOOD COUNT 5.21 10^6/uL (4.30-6.10); WHITE BLOOD COUNT 11.3 10^3/uL (4.0-10.0)
[2021-04-27 15:52] LABS: HEMOGLOBIN A1c 8.2 %
[2021-04-27 15:59] LABS: BLOOD UREA NITROGEN 31 MG/DL (7-18); CALCIUM LEVEL 8.8 MG/DL (8.8-10.2); CARBON DIOXIDE LEVEL 30 MEQ/L (21-32); CHLORIDE LEVEL 101 MEQ/L (98-107); CHOLESTEROL LEVEL 128 MG/DL (<200); CHOLESTEROL RISK RATIO 2.976 (<5); CREATININE FOR GFR 1.06 MG/DL (0.70-1.30); GLOMERULAR FILTRATION RATE > 60.0 (>49); GLUCOSE, FASTING 316 MG/DL (70-100); HDL CHOLESTEROL 43 MG/DL (>40); LDL CHOLESTEROL 51 MG/DL (<100); NON-HDL-C 85 MG/DL; POTASSIUM SERUM 4.9 MEQ/L (3.5-5.1); SODIUM LEVEL 137 MEQ/L (136-145); TRIGLYCERIDES LEVEL 168 MG/DL (<150)
== END ==
LOC: M PLALAB 13:45
PROVIDERS: ATTEND Student in an Organized Health Care Education/Training Program
DX: E11.42 Type 2 diabetes mellitus with diabetic polyneuropathy (principal); E78.5 Hyperlipidemia, unspecified; I48.92 Unspecified atrial flutter; I10 Essential (primary) hypertension

== ENCOUNTER 2021-08-04 17:59 | Inpatient (IN) | payer MEDICARE ==
[~2021-08-04] VITALS: Ht 182.9 cm; Wt 123.3 kg
[~2021-08-04 17:59] MED LIST changes: -METO1TAB7; +METO1TAB7 PO
[2021-08-04] MEDS ORDERED: SEMA1PEN2 INJ (18:17)
[2021-08-04] MEDS ORDERED: STEG15TA PO (18:17)
[2021-08-04] MEDS ORDERED: GABA600T4 PO (18:17)
[2021-08-04 19:38] LABS: BASO # 0.1 10^3/uL (0.0-0.2); EOS % 0.1 % (0.0-3.0); HEMATOCRIT 44.5 % (42.0-52.0); HEMOGLOBIN 15.1 g/dl (13.5-17.5); LYMPH # 1.2 10^3/uL (1.5-5.0); LYMPH % 17.4 % (24.0-44.0); MEAN CORPUSCULAR HEMOGLOBIN 30.2 pg (27.0-33.0); MEAN CORPUSCULAR HGB CONC 33.9 g/dl (32.0-36.5); MONO # 1.1 10^3/uL (0.0-0.8); MONO % 16.5 % (2.0-8.0); NEUTROPHILS # 4.4 10^3/uL (1.5-8.5); NEUTROPHILS % 64.4 % (36.0-66.0); PLATELET COUNT, AUTOMATED 186 10^3/uL (150-450); WHITE BLOOD COUNT 6.9 10^3/uL (4.0-10.0)
[2021-08-04] MEDS ORDERED: COMBIVENT RESPIMAT 100-20MCG INHALER 4GM INH STA (19:38)
[2021-08-04] MEDS ORDERED: methylPREDNISolone 125MG 2ML VIAL IV ONE (19:40)
[2021-08-04 20:15] LABS: ALBUMIN 3.4 GM/DL (3.2-5.2); ALT/SGPT 25 U/L (12-78); BILIRUBIN,DIRECT 0.1 MG/DL (0.0-0.2); BILIRUBIN,TOTAL 0.8 MG/DL (0.2-1.0); BLOOD UREA NITROGEN 29 MG/DL (7-18); CALCIUM LEVEL 8.7 MG/DL (8.8-10.2); CARBON DIOXIDE LEVEL 28 MEQ/L (21-32); CHLORIDE LEVEL 100 MEQ/L (98-107); CREATININE FOR GFR 1.15 MG/DL (0.70-1.30); GLOMERULAR FILTRATION RATE > 60.0 (>49); GLUCOSE, FASTING 205 MG/DL (70-100); NT-PRO BNP 380 PG/ML (<125); SODIUM LEVEL 135 MEQ/L (136-145); THYROXINE (T4) 6.6 UG/DL (4.5-12.0); TOTAL PROTEIN 6.8 GM/DL (6.4-8.2)
[2021-08-04] MEDS ORDERED: OSELTAMIVIR PHOSPHATE 75 MG CAP (TAMIFLU) PO ONE (20:50)
[2021-08-04] MEDS ORDERED: PROAAER10 INH (23:19)
[2021-08-04] MEDS ORDERED: FISH1000 PO (23:19)
[2021-08-04] MEDS ORDERED: HOME MED LIST COMPLETE! XX SCH (23:20)
[2021-08-04] MEDS ORDERED: XALA0.007 OU (23:20)
[2021-08-05] MEDS ORDERED: GLUCAGON INJ 1MG VIAL SC PRN (01:10)
[2021-08-05] MEDS ORDERED: GLUCOSE 4GM CHEW TABLET PO PRN (01:10)
[2021-08-05] MEDS ORDERED: DEXTROSE 50% 50 ML SYRINGE IV PRN (01:10)
[2021-08-05] MEDS ORDERED: AZITHROMYCIN 250MG TABLET PO SCH (02:00)
[2021-08-05] MEDS ORDERED: GABAPENTIN 300 MG CAP PO ONE (02:20)
[2021-08-05 03:00] LABS: INR 0.99; PROTHROMBIN TIME 13.5 SECONDS (12.7-14.5)
[2021-08-05 03:30] VITALS: BP 126/70
[2021-08-05] MEDS: SIMVASTATIN 40 MG TAB PO SCH ×2 (03:40→20:55)
[2021-08-05] MEDS: methylPREDNISolone 40MG 1ML VIAL IV SCH ×3 (03:41→20:59)
[2021-08-05] MEDS: IPRATROPIUM 0.5MG/ALBUTEROL 2.5MG INH SOL UD 3ML (DUONEB) NEB SCH ×4 (03:43→19:49)
[2021-08-05] MEDS: TAMSULOSIN 0.4 MG CAP PO SCH ×2 (03:46→20:55)
[2021-08-05] MEDS: ACETAMINOPHEN TAB 650MG DOSE (2X325MG) PO PRN ×2 (03:48→20:59)
[2021-08-05 05:51] VITALS: O2SAT 90
[2021-08-05 06:24] VITALS: BP 122/66
[2021-08-05 06:28] LABS: BASO % 0.3 % (0.0-1.0); HEMATOCRIT 43.4 % (42.0-52.0); HEMOGLOBIN 14.5 g/dl (13.5-17.5); LYMPH # 0.8 10^3/uL (1.5-5.0); LYMPH % 10.6 % (24.0-44.0); MEAN CORPUSCULAR HGB CONC 33.4 g/dl (32.0-36.5); MEAN CORPUSCULAR VOLUME 89.9 fl (80.0-96.0); MONO # 0.3 10^3/uL (0.0-0.8); MONO % 4.8 % (2.0-8.0); NEUTROPHILS # 5.9 10^3/uL (1.5-8.5); NEUTROPHILS % 83.7 % (36.0-66.0); PLATELET COUNT, AUTOMATED 184 10^3/uL (150-450); RED BLOOD COUNT 4.83 10^6/uL (4.30-6.10); WHITE BLOOD COUNT 7.1 10^3/uL (4.0-10.0)
[2021-08-05 06:56] LABS: BLOOD UREA NITROGEN 29 MG/DL (7-18); CALCIUM LEVEL 9.2 MG/DL (8.8-10.2); CARBON DIOXIDE LEVEL 23 MEQ/L (21-32); CHLORIDE LEVEL 102 MEQ/L (98-107); CREATININE FOR GFR 0.98 MG/DL (0.70-1.30); GLOMERULAR FILTRATION RATE > 60.0 (>49); GLUCOSE, FASTING 261 MG/DL (70-100); POTASSIUM SERUM 4.5 MEQ/L (3.5-5.1); SODIUM LEVEL 135 MEQ/L (136-145)
[2021-08-05] MEDS: INSULIN LISPRO (NovoLOG) PER UNIT SC SCH ×3 (07:30→17:30)
[2021-08-05] MEDS: FLUoxetine 20MG CAP PO SCH (08:49)
[2021-08-05] MEDS: APIXABAN 5 MG TAB (ELIQUIS) PO SCH ×2 (08:49→20:54)
[2021-08-05] MEDS: CALCIUM/VITAMIN D 500 MG TAB PO SCH (08:49)
[2021-08-05] MEDS: GABAPENTIN 300 MG CAP PO SCH (08:49)
[2021-08-05] MEDS: BRIMONIDINE 0.1% OPHTH SOLN 5 ML OU SCH ×2 (08:49→21:02)
[2021-08-05] MEDS: MULTIVITAMINS/MINERALS THERAP 1 TAB PO SCH (08:49)
[2021-08-05] MEDS: FUROSEMIDE 80 MG TAB PO SCH (08:49)
[2021-08-05] MEDS: OSELTAMIVIR PHOSPHATE 75 MG CAP (TAMIFLU) PO SCH ×2 (08:49→20:54)
[2021-08-05] MEDS: METOPROLOL SUCC (TopROL XL) 50MG **XL** TAB PO SCH (08:52)
[2021-08-05] MEDS ORDERED: GABAPENTIN 300 MG CAP PO SCH (09:00)
[2021-08-05] MEDS ORDERED: AUGMENTIN 875 MG TAB PO SCH (13:30)
[2021-08-05 14:00] VITALS: BP 118/66
[2021-08-05 15:19] VITALS: O2SAT 89
[2021-08-05] MEDS ORDERED: DOXYCYCLINE HYCLATE 100MG TABLET PO SCH (18:00)
[2021-08-05] MEDS ORDERED: LATANOPROST 0.005% OPHTH SOLN 2.5 ML OU SCH (21:00)
[2021-08-05] MEDS ORDERED: LEVEMIR (INSULIN DETEMIR) 1 UNITS/0.01ML SC SCH (21:00)
[2021-08-05] MEDS ORDERED: DOXYCYCLINE HYCLATE 100MG TABLET PO ONE (21:00)
[2021-08-05] MEDS ORDERED: INSULIN LISPRO (NovoLOG) PER UNIT SC SCH (21:00)
[2021-08-05] MEDS: CEFDINIR 300 MG CAP (OMNICEF) PO SCH (21:00)
[2021-08-05 22:00] VITALS: BP 135/60
[2021-08-06] MEDS: IPRATROPIUM 0.5MG/ALBUTEROL 2.5MG INH SOL UD 3ML (DUONEB) NEB SCH ×2 (01:26→07:33)
[2021-08-06] MEDS: methylPREDNISolone 40MG 1ML VIAL IV SCH ×2 (04:29→12:00)
[2021-08-06 06:00] VITALS: BP 127/67
[2021-08-06] MEDS ORDERED: DOXYCYCLINE HYCLATE 100MG TABLET PO SCH (06:00)
[2021-08-06 06:31] LABS: BASO % 0.2 % (0.0-1.0); HEMATOCRIT 46.4 % (42.0-52.0); HEMOGLOBIN 16.1 g/dl (13.5-17.5); LYMPH # 0.7 10^3/uL (1.5-5.0); LYMPH % 8.2 % (24.0-44.0); MEAN CORPUSCULAR HEMOGLOBIN 31.4 pg (27.0-33.0); MEAN CORPUSCULAR HGB CONC 34.7 g/dl (32.0-36.5); MEAN CORPUSCULAR VOLUME 90.6 fl (80.0-96.0); MONO # 0.5 10^3/uL (0.0-0.8); MONO % 6.4 % (2.0-8.0); NEUTROPHILS % 84.2 % (36.0-66.0); PLATELET COUNT, AUTOMATED 197 10^3/uL (150-450); RED BLOOD COUNT 5.12 10^6/uL (4.30-6.10); WHITE BLOOD COUNT 8.3 10^3/uL (4.0-10.0)
[2021-08-06 06:48] LABS: BLOOD UREA NITROGEN 36 MG/DL (7-18); CALCIUM LEVEL 8.4 MG/DL (8.8-10.2); CARBON DIOXIDE LEVEL 28 MEQ/L (21-32); CHLORIDE LEVEL 101 MEQ/L (98-107); CREATININE FOR GFR 1.21 MG/DL (0.70-1.30); GLOMERULAR FILTRATION RATE > 60.0 (>49); GLUCOSE, FASTING 293 MG/DL (70-100); POTASSIUM SERUM 4.6 MEQ/L (3.5-5.1); SODIUM LEVEL 136 MEQ/L (136-145)
[2021-08-06] MEDS ORDERED: DOXY100T PO (08:55)
[2021-08-06] MEDS ORDERED: OSEL75CA2 PO (08:55)
[2021-08-06] MEDS ORDERED: CEFD300CAP PO (08:55)
[2021-08-06] MEDS ORDERED: PRED10TA2 PO (08:55)
[2021-08-06] MEDS ORDERED: LACTOBACILLUS ACIDOPHILUS CAP (BACID) PO SCH (09:00)
[2021-08-06] MEDS: INSULIN LISPRO (NovoLOG) PER UNIT SC SCH ×2 (10:25→13:10)
[2021-08-06] MEDS: CALCIUM/VITAMIN D 500 MG TAB PO SCH (10:26)
[2021-08-06] MEDS: OSELTAMIVIR PHOSPHATE 75 MG CAP (TAMIFLU) PO SCH (10:26)
[2021-08-06] MEDS: MULTIVITAMINS/MINERALS THERAP 1 TAB PO SCH (10:26)
[2021-08-06] MEDS: GABAPENTIN 300 MG CAP PO SCH (10:26)
[2021-08-06] MEDS: CEFDINIR 300 MG CAP (OMNICEF) PO SCH (10:26)
[2021-08-06] MEDS: BRIMONIDINE 0.1% OPHTH SOLN 5 ML OU SCH (10:27)
[2021-08-06] MEDS: APIXABAN 5 MG TAB (ELIQUIS) PO SCH (10:27)
[2021-08-06] MEDS: FUROSEMIDE 80 MG TAB PO SCH (10:27)
[2021-08-06] MEDS: FLUoxetine 20MG CAP PO SCH (10:27)
[2021-08-06 10:33] VITALS: BP 138/62
[2021-08-06] MEDS: METOPROLOL SUCC (TopROL XL) 50MG **XL** TAB PO SCH (10:33)
== END 2021-08-06 14:10 | disposition home or self-care (01) | DRG 153 ==
LOC: M ED 17:59 → M ED INP 08-05 01:10 → ENRESERV 08-05 01:53 → M MSPAV 08-05 03:21
PROVIDERS: ADMIT Internal Medicine; ATTEND Internal Medicine
DX: J11.1 Influenza due to unidentified influenza virus with other respiratory manifestations (principal); J44.1 Chronic obstructive pulmonary disease with (acute) exacerbation; I50.32 Chronic diastolic (congestive) heart failure; G73.3 Myasthenic syndromes in other diseases classified elsewhere; J44.0 Chronic obstructive pulmonary disease with (acute) lower respiratory infection; I11.0 Hypertensive heart disease with heart failure; E66.9 Obesity, unspecified; E11.42 Type 2 diabetes mellitus with diabetic polyneuropathy; I48.91 Unspecified atrial fibrillation; N40.0 Benign prostatic hyperplasia without lower urinary tract symptoms; E78.5 Hyperlipidemia, unspecified; Z79.01 Long term (current) use of anticoagulants; Z79.84 Long term (current) use of oral hypoglycemic drugs; Z79.899 Other long term (current) drug therapy; Z88.1 Allergy status to other antibiotic agents; Z91.040 Latex allergy status; Z90.49 Acquired absence of other specified parts of digestive tract; Z87.891 Personal history of nicotine dependence; Z68.36 Body mass index [BMI] 36.0-36.9, adult; I87.2 Venous insufficiency (chronic) (peripheral); Z20.822 Contact with and (suspected) exposure to COVID-19

== ENCOUNTER → 2021-08-25 | Outpatient (CLI) | payer MEDICARE ==
[~2021-08-25] MED LIST changes: +ALBU2.5V10 INH; -ALBU83IN INH; +CEFD300CAP PO; +DOXY100T PO; +FISH1000 PO; +GABA600T4 PO; +OSEL75CA2 PO; +PROAAER10 INH; +SEMA1PEN2 INJ; +STEG15TA PO; +XALA0.007 OU
[2021-08-25 17:03] LABS: BASO # 0.1 10^3/uL (0.0-0.2); BASO % 0.6 % (0.0-1.0); EOS # 0.2 10^3/uL (0.0-0.5); EOS % 2.4 % (0.0-3.0); HEMATOCRIT 43.8 % (42.0-52.0); HEMOGLOBIN 14.2 g/dl (13.5-17.5); LYMPH # 2.4 10^3/uL (1.5-5.0); LYMPH % 24.9 % (24.0-44.0); MEAN CORPUSCULAR HEMOGLOBIN 30.1 pg (27.0-33.0); MEAN CORPUSCULAR HGB CONC 32.4 g/dl (32.0-36.5); MONO # 0.8 10^3/uL (0.0-0.8); NEUTROPHILS # 6.1 10^3/uL (1.5-8.5); NEUTROPHILS % 63.4 % (36.0-66.0); PLATELET COUNT, AUTOMATED 223 10^3/uL (150-450); RED BLOOD COUNT 4.71 10^6/uL (4.30-6.10); WHITE BLOOD COUNT 9.7 10^3/uL (4.0-10.0)
[2021-08-25 17:39] LABS: CREATININE, URINE 76.8 MG/DL; MAU/CREAT RATIO 79.4 MCG/MG (0.0-30.0)
[2021-08-25 18:26] LABS: ALBUMIN 3.4 GM/DL (3.2-5.2); ALT/SGPT 29 U/L (12-78); BILIRUBIN,TOTAL 0.8 MG/DL (0.2-1.0); BLOOD UREA NITROGEN 21 MG/DL (7-18); CALCIUM LEVEL 8.8 MG/DL (8.8-10.2); CARBON DIOXIDE LEVEL 28 MEQ/L (21-32); CHLORIDE LEVEL 106 MEQ/L (98-107); CREATININE FOR GFR 0.96 MG/DL (0.70-1.30); GLOMERULAR FILTRATION RATE > 60.0 (>49); GLUCOSE, FASTING 165 MG/DL (70-100); POTASSIUM SERUM 4.5 MEQ/L (3.5-5.1); SODIUM LEVEL 141 MEQ/L (136-145); TOTAL PROTEIN 6.5 GM/DL (6.4-8.2)
[2021-08-25 18:37] LABS: HEMOGLOBIN A1c 9.2 %
== END ==
LOC: M PLALAB 13:46
PROVIDERS: ATTEND Student in an Organized Health Care Education/Training Program
DX: D72.829 Elevated white blood cell count, unspecified (principal); E11.9 Type 2 diabetes mellitus without complications

== ENCOUNTER → 2021-11-23 | Outpatient (CLI) | payer MEDICARE ==
[2021-11-23 18:25] LABS: BASO # 0.1 10^3/uL (0.0-0.2); BASO % 0.9 % (0.0-1.0); EOS # 0.4 10^3/uL (0.0-0.5); EOS % 3.4 % (0.0-3.0); HEMATOCRIT 46.5 % (42.0-52.0); HEMOGLOBIN 14.9 g/dl (13.5-17.5); LYMPH # 2.6 10^3/uL (1.5-5.0); MEAN CORPUSCULAR VOLUME 93.8 fl (80.0-96.0); MONO # 0.9 10^3/uL (0.0-0.8); MONO % 8.7 % (2.0-8.0); NEUTROPHILS # 6.4 10^3/uL (1.5-8.5); NEUTROPHILS % 61.3 % (36.0-66.0); PLATELET COUNT, AUTOMATED 276 10^3/uL (150-450); RED BLOOD COUNT 4.96 10^6/uL (4.30-6.10); WHITE BLOOD COUNT 10.4 10^3/uL (4.0-10.0)
[2021-11-23 18:31] LABS: CALCIUM LEVEL 9.3 MG/DL (8.8-10.2); CREATININE FOR GFR 1.36 MG/DL (0.70-1.30); GLOMERULAR FILTRATION RATE 55.3 (>49); POTASSIUM SERUM 4.8 MEQ/L (3.5-5.1)
[2021-11-23 18:48] LABS: CREATININE, URINE 37.1 MG/DL; MALB URINE SIEMENS 7.2 MG/L; MAU/CREAT RATIO 19.4 MCG/MG (0.0-30.0)
[2021-11-23 19:04] LABS: HEMOGLOBIN A1c 7.5 %
== END ==
LOC: M PLALAB 16:01
PROVIDERS: ATTEND Student in an Organized Health Care Education/Training Program
DX: E11.9 Type 2 diabetes mellitus without complications (principal); L03.116 Cellulitis of left lower limb

== ENCOUNTER 2022-02-14 16:27 | Emergency (ER) | payer MEDICARE ==
[~2022-02-14] VITALS: Ht 190.5 cm; Wt 117.1 kg
[~2022-02-14 16:27] MED LIST changes: -DOXY-350 PO; +DOXY-444 PO
[2022-02-14] MEDS ORDERED: BACTDSTA (16:41)
[2022-02-14] MEDS ORDERED: LISI2.5T9 (16:41)
[2022-02-14] MEDS ORDERED: GABA-282 PO (16:41)
[2022-02-14] MEDS ORDERED: CIPR500T39 (16:41)
[2022-02-14 18:53] LABS: BASO # 0.1 10^3/uL (0.0-0.2); BASO % 0.6 % (0.0-1.0); EOS # 0.2 10^3/uL (0.0-0.5); EOS % 1.7 % (0.0-3.0); HEMATOCRIT 39.8 % (42.0-52.0); HEMOGLOBIN 13.2 g/dl (13.5-17.5); LYMPH # 2.5 10^3/uL (1.5-5.0); LYMPH % 22.3 % (24.0-44.0); MEAN CORPUSCULAR HEMOGLOBIN 29.5 pg (27.0-33.0); MEAN CORPUSCULAR HGB CONC 33.2 g/dl (32.0-36.5); MONO # 1.4 10^3/uL (0.0-0.8); MONO % 12.3 % (2.0-8.0); NEUTROPHILS % 62.8 % (36.0-66.0); PLATELET COUNT, AUTOMATED 269 10^3/uL (150-450); RED BLOOD COUNT 4.47 10^6/uL (4.30-6.10); WHITE BLOOD COUNT 11.2 10^3/uL (4.0-10.0)
[2022-02-14 19:04] LABS: INR 1.18; PROTHROMBIN TIME 15.2 SECONDS (12.5-14.5)
[2022-02-14] MEDS ORDERED: diphenhydrAMINE 50MG/ML VIAL IV STA (19:06)
[2022-02-14] MEDS ORDERED: VANCOMYCIN HCL 2,000 MG in IV FLUID PLACE HOLDER 1 EA IV ONE (19:10)
[2022-02-14 19:19] LABS: ERYTHROCYTE SEDIMENTATION RATE 41 mm/hr (0-20)
[2022-02-14 19:26] LABS: RSV AMPLIFICATION NEGATIVE (NEGATIVE)
[2022-02-14] MEDS ORDERED: VANCOMYCIN HCL 1,000 MG, VIAL MATE ADAPTER 1 EACH in NS 250 ML IV ONE ×2 (20:30→21:30)
[2022-02-14] MEDS ORDERED: DALBAVANCIN 1,500 MG in D5W 250 ML IV ONE (21:30)
[2022-02-14] MEDS ORDERED: GABAPENTIN 300 MG CAP PO ONE (21:30)
[2022-02-14 23:11] VITALS: BP 130/58
== END 2022-02-14 23:53 | disposition home or self-care (01) ==
LOC: M ED 16:27
DX: S80.12XA Contusion of left lower leg, initial encounter (principal); L03.116 Cellulitis of left lower limb; W22.8XXA Striking against or struck by other objects, initial encounter; I48.91 Unspecified atrial fibrillation; I50.9 Heart failure, unspecified; I10 Essential (primary) hypertension; E11.9 Type 2 diabetes mellitus without complications; J45.909 Unspecified asthma, uncomplicated; N40.0 Benign prostatic hyperplasia without lower urinary tract symptoms; Z79.84 Long term (current) use of oral hypoglycemic drugs; Z79.01 Long term (current) use of anticoagulants; Z79.4 Long term (current) use of insulin; Z79.899 Other long term (current) drug therapy; Z88.0 Allergy status to penicillin; Z88.1 Allergy status to other antibiotic agents; Z91.040 Latex allergy status
CPT/HCPCS: 73590; 76882; 80047; 83605; 85025; 85610; 85652; 86140; 87040; 87070; 87077; 87186; 87205; 87631; 93971; 96365; 96366; 96368; 96375; 99283; J0875; J1200; J3370

== ENCOUNTER 2022-02-18 15:57 | Inpatient (IN) | payer MEDICARE ==
[~2022-02-18] VITALS: Ht 190.5 cm; Wt 113.6 kg
[~2022-02-18 15:57] MED LIST changes: +BACTDSTA; +CIPR500T39; +GABA-282 PO; +LISI2.5T9
[2022-02-18] MEDS ORDERED: NS 1,000 ML IV ONE (17:25)
[2022-02-18] MEDS ORDERED: CLINDAMYCIN 900 MG in IV 1 EA IV ONE (17:25)
[2022-02-18 18:50] LABS: BASO # 0.1 10^3/uL (0.0-0.2); BASO % 0.7 % (0.0-1.0); EOS # 0.3 10^3/uL (0.0-0.5); EOS % 2.5 % (0.0-3.0); HEMATOCRIT 39.4 % (42.0-52.0); HEMOGLOBIN 12.7 g/dl (13.5-17.5); LYMPH # 2.6 10^3/uL (1.5-5.0); LYMPH % 21.6 % (24.0-44.0); MEAN CORPUSCULAR HEMOGLOBIN 29.3 pg (27.0-33.0); MEAN CORPUSCULAR HGB CONC 32.2 g/dl (32.0-36.5); MEAN CORPUSCULAR VOLUME 90.8 fl (80.0-96.0); MONO # 1.2 10^3/uL (0.0-0.8); MONO % 9.6 % (2.0-8.0); NEUTROPHILS # 7.8 10^3/uL (1.5-8.5); PLATELET COUNT, AUTOMATED 357 10^3/uL (150-450); RED BLOOD COUNT 4.34 10^6/uL (4.30-6.10); WHITE BLOOD COUNT 12.1 10^3/uL (4.0-10.0)
[2022-02-18 19:10] LABS: INR 1.24; PARTIAL THROMBOPLASTIN TIME 33.7 SECONDS (24.8-34.2); PROTHROMBIN TIME 15.9 SECONDS (12.5-14.5)
[2022-02-18 19:15] LABS: ALBUMIN 3.1 G/DL (3.2-5.2); ALKALINE PHOSPHATASE 100 U/L (46-116); ALT/SGPT 22 U/L (7.0-40); AST/SGOT 17 U/L (<34); BILIRUBIN,DIRECT 0.4 MG/DL (<0.4); BILIRUBIN,TOTAL 1.1 MG/DL (0.3-1.2); BLOOD UREA NITROGEN 26 MG/DL (9-23); CALCIUM LEVEL 8.7 MG/DL (8.3-10.6); CARBON DIOXIDE LEVEL 31 MMOL/L (20-31); CHLORIDE LEVEL 98 MMOL/L (98-107); CREATININE FOR GFR 0.94 MG/DL (0.70-1.30); GLOMERULAR FILTRATION RATE > 60.0 (>42); GLUCOSE, FASTING 141 MG/DL (74-106); POTASSIUM SERUM 4.5 MMOL/L (3.5-5.1); SODIUM LEVEL 136 MMOL/L (136-145); TOTAL PROTEIN 6.6 G/DL (5.7-8.2)
[2022-02-18 19:35] LABS: RSV AMPLIFICATION NEGATIVE (NEGATIVE)
[2022-02-18] MEDS: IPRATROPIUM HFA INHALER 12.9 GRAMS (ATROVENT HFA) INH SCH (20:00)
[2022-02-18] MEDS ORDERED: NS 1,000 ML IV SCH (20:10)
[2022-02-18] MEDS ORDERED: GLUCAGON INJ 1MG VIAL SC PRN (20:10)
[2022-02-18] MEDS ORDERED: ACETAMINOPHEN TAB 650MG DOSE (2X325MG) PO PRN ×2 (20:10→21:55)
[2022-02-18] MEDS ORDERED: DOCUSATE SODIUM 100MG CAPSULE PO PRN (20:10)
[2022-02-18] MEDS ORDERED: DEXTROSE 50% 50 ML SYRINGE IV PRN (20:10)
[2022-02-18] MEDS ORDERED: GLUCOSE 4GM CHEW TABLET PO PRN (20:10)
[2022-02-18] MEDS ORDERED: ONDANSETRON 4MG 2ML VIAL IV PRN (20:10)
[2022-02-18 20:11] LABS: ERYTHROCYTE SEDIMENTATION RATE 61 mm/hr (0-20)
[2022-02-18] MEDS ORDERED: APIXABAN 5 MG TAB (ELIQUIS) PO SCH (21:00)
[2022-02-18] MEDS: INSULIN LISPRO (NovoLOG) PER UNIT SC SCH (21:00)
[2022-02-18] MEDS ORDERED: IPRATROPIUM 0.5MG/ALBUTEROL 2.5MG INH SOL UD 3ML (DUONEB) NEB PRN (21:25)
[2022-02-18] MEDS ORDERED: STEG15TA PO (21:50)
[2022-02-18] MEDS ORDERED: ALBU8.5H INH (21:50)
[2022-02-18] MEDS ORDERED: LISI5TAB11 PO (21:50)
[2022-02-18] MEDS ORDERED: FISH100015 PO (21:50)
[2022-02-18] MEDS ORDERED: METO1TAB32 PO (21:50)
[2022-02-18] MEDS ORDERED: GABA-282 PO (21:50)
[2022-02-18] MEDS ORDERED: HOME MED LIST COMPLETE! XX SCH (21:55)
[2022-02-19 00:15] VITALS: BP 117/60
[2022-02-19] MEDS ORDERED: ALBUTEROL 90 MCG/ACT 8GM HFA INHALER INH PRN (01:00)
[2022-02-19] MEDS: LEVEMIR (INSULIN DETEMIR) 1 UNITS/0.01ML SC SCH ×2 (01:12→20:25)
[2022-02-19] MEDS ORDERED: LIDOCAINE 1% MDV 20ML VIAL As Ordered ONE (01:43)
[2022-02-19] MEDS ORDERED: LIDOCAINE 1% MDV 20ML VIAL SC ONE (01:50)
[2022-02-19] MEDS: IPRATROPIUM HFA INHALER 12.9 GRAMS (ATROVENT HFA) INH SCH ×3 (01:55→20:40)
[2022-02-19] MEDS: TAMSULOSIN 0.4 MG CAP PO SCH ×2 (02:34→20:31)
[2022-02-19] MEDS: GABAPENTIN 300 MG CAP PO SCH ×3 (02:34→20:31)
[2022-02-19] MEDS: SIMVASTATIN 40 MG TAB PO SCH ×2 (02:35→20:31)
[2022-02-19] MEDS: traMADol 50 MG TAB PO PRN ×2 (02:35→16:32)
[2022-02-19] MEDS: LATANOPROST 0.005% OPHTH SOLN 2.5 ML OU SCH ×2 (02:35→20:30)
[2022-02-19] MEDS: CLINDAMYCIN 600 MG in IV 1 EA IV SCH ×4 (02:35→20:24)
[2022-02-19] MEDS ORDERED: MORPHINE 2 MG/ML 1ML VIAL IV ONE (04:00)
[2022-02-19 06:00] VITALS: BP 118/58
[2022-02-19 06:08] LABS: HEMATOCRIT 33.2 % (42.0-52.0); HEMOGLOBIN 10.7 g/dl (13.5-17.5); MEAN CORPUSCULAR HGB CONC 32.2 g/dl (32.0-36.5); PLATELET COUNT, AUTOMATED 288 10^3/uL (150-450); RED BLOOD COUNT 3.69 10^6/uL (4.30-6.10); WHITE BLOOD COUNT 10.2 10^3/uL (4.0-10.0)
[2022-02-19 06:29] LABS: MAGNESIUM LEVEL 1.8 MG/DL (1.8-2.4)
[2022-02-19 06:35] LABS: ALBUMIN 2.5 G/DL (3.2-5.2); ALKALINE PHOSPHATASE 79 U/L (46-116); ALT/SGPT 16 U/L (7.0-40); AST/SGOT 13 U/L (<34); BLOOD UREA NITROGEN 22 MG/DL (9-23); CALCIUM LEVEL 7.7 MG/DL (8.3-10.6); CARBON DIOXIDE LEVEL 27 MMOL/L (20-31); CHLORIDE LEVEL 101 MMOL/L (98-107); CREATININE FOR GFR 0.89 MG/DL (0.70-1.30); GLOMERULAR FILTRATION RATE > 60.0 (>42); GLUCOSE, FASTING 152 MG/DL (74-106); POTASSIUM SERUM 4.3 MMOL/L (3.5-5.1); SODIUM LEVEL 137 MMOL/L (136-145); TOTAL PROTEIN 5.3 G/DL (5.7-8.2)
[2022-02-19 07:37] LABS: ERYTHROCYTE SEDIMENTATION RATE 54 mm/hr (0-20)
[2022-02-19] MEDS: APIXABAN 5 MG TAB (ELIQUIS) PO SCH ×2 (08:45→20:31)
[2022-02-19] MEDS: MULTIVITAMINS/MINERALS THERAP 1 TAB PO SCH (08:45)
[2022-02-19] MEDS: FLUoxetine 20MG CAP PO SCH (08:45)
[2022-02-19] MEDS: FUROSEMIDE 80 MG TAB PO SCH (08:45)
[2022-02-19] MEDS: ACETAMINOPHEN 650MG ER TAB (TYLENOL ARTHRITIS) PO SCH (08:45)
[2022-02-19] MEDS: CALCIUM/VITAMIN D 500 MG TAB PO SCH (08:45)
[2022-02-19] MEDS: INSULIN LISPRO (NovoLOG) PER UNIT SC SCH ×4 (08:46→20:25)
[2022-02-19] MEDS: BRIMONIDINE 0.1% OPHTH SOLN 5 ML OU SCH (08:49)
[2022-02-19] MEDS: lisinopriL 5 MG TAB PO SCH (08:49)
[2022-02-19] MEDS: METOPROLOL SUCC *XL* 25MG TAB (TopROL *XL*) PO SCH (08:49)
[2022-02-19 14:00] VITALS: BP 122/54
[2022-02-19 20:00] VITALS: BP 128/56
[2022-02-20] MEDS: CLINDAMYCIN 600 MG in IV 1 EA IV SCH ×3 (03:09→20:18)
[2022-02-20 05:41] VITALS: BP 110/57
[2022-02-20 06:43] LABS: HEMATOCRIT 33.9 % (42.0-52.0); HEMOGLOBIN 10.9 g/dl (13.5-17.5); MEAN CORPUSCULAR HEMOGLOBIN 28.8 pg (27.0-33.0); MEAN CORPUSCULAR HGB CONC 32.2 g/dl (32.0-36.5); MEAN CORPUSCULAR VOLUME 89.7 fl (80.0-96.0); PLATELET COUNT, AUTOMATED 303 10^3/uL (150-450); RED BLOOD COUNT 3.78 10^6/uL (4.30-6.10); WHITE BLOOD COUNT 9.8 10^3/uL (4.0-10.0)
[2022-02-20 07:29] LABS: BLOOD UREA NITROGEN 20 MG/DL (9-23); CALCIUM LEVEL 7.7 MG/DL (8.3-10.6); CARBON DIOXIDE LEVEL 27 MMOL/L (20-31); CHLORIDE LEVEL 104 MMOL/L (98-107); CREATININE FOR GFR 0.83 MG/DL (0.70-1.30); GLOMERULAR FILTRATION RATE > 60.0 (>42); GLUCOSE, FASTING 143 MG/DL (74-106); MAGNESIUM LEVEL 1.8 MG/DL (1.8-2.4); POTASSIUM SERUM 4.1 MMOL/L (3.5-5.1); SODIUM LEVEL 138 MMOL/L (136-145)
[2022-02-20] MEDS: IPRATROPIUM HFA INHALER 12.9 GRAMS (ATROVENT HFA) INH SCH ×2 (07:29→20:57)
[2022-02-20] MEDS: INSULIN LISPRO (NovoLOG) PER UNIT SC SCH ×4 (09:25→20:49)
[2022-02-20] MEDS: FUROSEMIDE 80 MG TAB PO SCH (09:26)
[2022-02-20] MEDS: GABAPENTIN 300 MG CAP PO SCH ×2 (09:26→20:21)
[2022-02-20] MEDS: APIXABAN 5 MG TAB (ELIQUIS) PO SCH ×2 (09:26→20:21)
[2022-02-20] MEDS: METOPROLOL SUCC *XL* 25MG TAB (TopROL *XL*) PO SCH (09:26)
[2022-02-20] MEDS: lisinopriL 5 MG TAB PO SCH (09:26)
[2022-02-20] MEDS: MULTIVITAMINS/MINERALS THERAP 1 TAB PO SCH (09:26)
[2022-02-20] MEDS: LACTOBACILLUS ACIDOPHILUS CAP (BACID) PO SCH ×2 (09:26→18:44)
[2022-02-20] MEDS: FLUoxetine 20MG CAP PO SCH (09:27)
[2022-02-20] MEDS: VANICREAM MOISTURIZING SKIN CREAM 113GM TUBE TOP SCH (09:27)
[2022-02-20] MEDS: ACETAMINOPHEN 650MG ER TAB (TYLENOL ARTHRITIS) PO SCH (09:27)
[2022-02-20] MEDS: CALCIUM/VITAMIN D 500 MG TAB PO SCH (09:27)
[2022-02-20] MEDS: BRIMONIDINE 0.1% OPHTH SOLN 5 ML OU SCH (10:49)
[2022-02-20 14:00] VITALS: BP 105/58
[2022-02-20] MEDS: LATANOPROST 0.005% OPHTH SOLN 2.5 ML OU SCH (20:18)
[2022-02-20] MEDS: traMADol 50 MG TAB PO PRN (20:21)
[2022-02-20] MEDS: TAMSULOSIN 0.4 MG CAP PO SCH (20:21)
[2022-02-20] MEDS: SIMVASTATIN 40 MG TAB PO SCH (20:21)
[2022-02-20 20:34] VITALS: BP 123/63
[2022-02-20] MEDS: LEVEMIR (INSULIN DETEMIR) 1 UNITS/0.01ML SC SCH (20:53)
[2022-02-21] MEDS: CLINDAMYCIN 600 MG in IV 1 EA IV SCH ×3 (03:17→22:06)
[2022-02-21 05:25] VITALS: BP 121/62
[2022-02-21 08:30] VITALS: BP 109/62
[2022-02-21] MEDS: IPRATROPIUM HFA INHALER 12.9 GRAMS (ATROVENT HFA) INH SCH ×2 (08:32→20:33)
[2022-02-21 08:53] LABS: BASO # 0.1 10^3/uL (0.0-0.2); BASO % 0.8 % (0.0-1.0); EOS # 0.3 10^3/uL (0.0-0.5); EOS % 3.4 % (0.0-3.0); HEMATOCRIT 34.2 % (42.0-52.0); HEMOGLOBIN 11.2 g/dl (13.5-17.5); LYMPH # 2.2 10^3/uL (1.5-5.0); LYMPH % 24.1 % (24.0-44.0); MEAN CORPUSCULAR HEMOGLOBIN 29.2 pg (27.0-33.0); MEAN CORPUSCULAR HGB CONC 32.7 g/dl (32.0-36.5); MEAN CORPUSCULAR VOLUME 89.3 fl (80.0-96.0); MONO # 0.8 10^3/uL (0.0-0.8); MONO % 8.6 % (2.0-8.0); NEUTROPHILS # 5.7 10^3/uL (1.5-8.5); NEUTROPHILS % 62.4 % (36.0-66.0); PLATELET COUNT, AUTOMATED 324 10^3/uL (150-450); RED BLOOD COUNT 3.83 10^6/uL (4.30-6.10); WHITE BLOOD COUNT 9.1 10^3/uL (4.0-10.0)
[2022-02-21] MEDS: lisinopriL 5 MG TAB PO SCH (09:00)
[2022-02-21 09:16] LABS: ERYTHROCYTE SEDIMENTATION RATE 58 mm/hr (0-20)
[2022-02-21] MEDS: FLUoxetine 20MG CAP PO SCH (09:19)
[2022-02-21] MEDS: APIXABAN 5 MG TAB (ELIQUIS) PO SCH ×2 (09:19→20:10)
[2022-02-21] MEDS: MULTIVITAMINS/MINERALS THERAP 1 TAB PO SCH (09:19)
[2022-02-21] MEDS: METOPROLOL SUCC *XL* 25MG TAB (TopROL *XL*) PO SCH (09:19)
[2022-02-21] MEDS: CALCIUM/VITAMIN D 500 MG TAB PO SCH (09:20)
[2022-02-21] MEDS: BRIMONIDINE 0.1% OPHTH SOLN 5 ML OU SCH (09:20)
[2022-02-21] MEDS: GABAPENTIN 300 MG CAP PO SCH ×2 (09:20→20:06)
[2022-02-21] MEDS: LACTOBACILLUS ACIDOPHILUS CAP (BACID) PO SCH ×2 (09:20→18:43)
[2022-02-21] MEDS: FUROSEMIDE 80 MG TAB PO SCH (09:20)
[2022-02-21] MEDS: ACETAMINOPHEN 650MG ER TAB (TYLENOL ARTHRITIS) PO SCH (09:20)
[2022-02-21] MEDS: VANICREAM MOISTURIZING SKIN CREAM 113GM TUBE TOP SCH (09:21)
[2022-02-21 09:29] LABS: BLOOD UREA NITROGEN 19 MG/DL (9-23); CALCIUM LEVEL 7.6 MG/DL (8.3-10.6); CARBON DIOXIDE LEVEL 31 MMOL/L (20-31); CHLORIDE LEVEL 103 MMOL/L (98-107); CREATININE FOR GFR 0.84 MG/DL (0.70-1.30); GLOMERULAR FILTRATION RATE > 60.0 (>42); GLUCOSE, FASTING 142 MG/DL (74-106); POTASSIUM SERUM 4.2 MMOL/L (3.5-5.1); SODIUM LEVEL 139 MMOL/L (136-145)
[2022-02-21] MEDS: INSULIN LISPRO (NovoLOG) PER UNIT SC SCH ×5 (09:39→20:18)
[2022-02-21 13:33] VITALS: BP 115/62
[2022-02-21] MEDS: SIMVASTATIN 40 MG TAB PO SCH (20:05)
[2022-02-21] MEDS: traMADol 50 MG TAB PO PRN ×2 (20:07→22:07)
[2022-02-21] MEDS: TAMSULOSIN 0.4 MG CAP PO SCH (20:07)
[2022-02-21] MEDS: LATANOPROST 0.005% OPHTH SOLN 2.5 ML OU SCH (20:07)
[2022-02-21] MEDS: LEVEMIR (INSULIN DETEMIR) 1 UNITS/0.01ML SC SCH (20:17)
[2022-02-21 21:00] VITALS: BP 112/55
[2022-02-22] MEDS: CLINDAMYCIN 600 MG in IV 1 EA IV SCH ×3 (03:31→20:43)
[2022-02-22 05:10] VITALS: BP 112/57
[2022-02-22] MEDS: IPRATROPIUM HFA INHALER 12.9 GRAMS (ATROVENT HFA) INH SCH ×2 (07:59→19:25)
[2022-02-22 09:00] VITALS: BP 124/68
[2022-02-22] MEDS: ACETAMINOPHEN 650MG ER TAB (TYLENOL ARTHRITIS) PO SCH (09:50)
[2022-02-22] MEDS: MULTIVITAMINS/MINERALS THERAP 1 TAB PO SCH (09:50)
[2022-02-22] MEDS: GABAPENTIN 300 MG CAP PO SCH ×2 (09:50→20:43)
[2022-02-22] MEDS: LACTOBACILLUS ACIDOPHILUS CAP (BACID) PO SCH ×2 (09:50→18:55)
[2022-02-22] MEDS: APIXABAN 5 MG TAB (ELIQUIS) PO SCH ×2 (09:50→20:43)
[2022-02-22] MEDS: CALCIUM/VITAMIN D 500 MG TAB PO SCH (09:50)
[2022-02-22] MEDS: METOPROLOL SUCC *XL* 25MG TAB (TopROL *XL*) PO SCH (09:51)
[2022-02-22] MEDS: lisinopriL 5 MG TAB PO SCH (09:51)
[2022-02-22] MEDS: FUROSEMIDE 80 MG TAB PO SCH (09:51)
[2022-02-22] MEDS: FLUoxetine 20MG CAP PO SCH (09:51)
[2022-02-22] MEDS: VANICREAM MOISTURIZING SKIN CREAM 113GM TUBE TOP SCH (09:52)
[2022-02-22] MEDS: BRIMONIDINE 0.1% OPHTH SOLN 5 ML OU SCH (09:52)
[2022-02-22] MEDS: INSULIN LISPRO (NovoLOG) PER UNIT SC SCH ×9 (09:53→20:35)
[2022-02-22] MEDS ORDERED: KETOROLAC 30 MG/ML 1ML VIAL IV ONE (13:00)
[2022-02-22 13:24] LABS: BASO # 0.1 10^3/uL (0.0-0.2); BASO % 0.9 % (0.0-1.0); EOS # 0.3 10^3/uL (0.0-0.5); EOS % 3.3 % (0.0-3.0); HEMATOCRIT 39.9 % (42.0-52.0); HEMOGLOBIN 12.7 g/dl (13.5-17.5); LYMPH # 2.3 10^3/uL (1.5-5.0); LYMPH % 22.4 % (24.0-44.0); MEAN CORPUSCULAR HEMOGLOBIN 28.7 pg (27.0-33.0); MEAN CORPUSCULAR HGB CONC 31.8 g/dl (32.0-36.5); MEAN CORPUSCULAR VOLUME 90.1 fl (80.0-96.0); MONO # 0.8 10^3/uL (0.0-0.8); MONO % 7.6 % (2.0-8.0); NEUTROPHILS # 6.6 10^3/uL (1.5-8.5); NEUTROPHILS % 65.3 % (36.0-66.0); PLATELET COUNT, AUTOMATED 400 10^3/uL (150-450); RED BLOOD COUNT 4.43 10^6/uL (4.30-6.10); WHITE BLOOD COUNT 10.1 10^3/uL (4.0-10.0)
[2022-02-22 14:00] VITALS: BP 100/60
[2022-02-22 14:00] LABS: BLOOD UREA NITROGEN 20 MG/DL (9-23); CALCIUM LEVEL 8.4 MG/DL (8.3-10.6); CARBON DIOXIDE LEVEL 30 MMOL/L (20-31); CHLORIDE LEVEL 103 MMOL/L (98-107); CREATININE FOR GFR 0.77 MG/DL (0.70-1.30); GLOMERULAR FILTRATION RATE > 60.0 (>42); GLUCOSE, FASTING 152 MG/DL (74-106); POTASSIUM SERUM 4.4 MMOL/L (3.5-5.1); SODIUM LEVEL 139 MMOL/L (136-145)
[2022-02-22 14:18] LABS: ERYTHROCYTE SEDIMENTATION RATE 47 mm/hr (0-20)
[2022-02-22 19:56] VITALS: BP 117/65
[2022-02-22] MEDS: LATANOPROST 0.005% OPHTH SOLN 2.5 ML OU SCH (20:43)
[2022-02-22] MEDS: SIMVASTATIN 40 MG TAB PO SCH (20:43)
[2022-02-22] MEDS: TAMSULOSIN 0.4 MG CAP PO SCH (20:43)
[2022-02-22] MEDS: LEVEMIR (INSULIN DETEMIR) 1 UNITS/0.01ML SC SCH (20:44)
[2022-02-23] MEDS: CLINDAMYCIN 600 MG in IV 1 EA IV SCH ×2 (03:36→12:00)
[2022-02-23 06:00] VITALS: BP 112/62
[2022-02-23 06:41] LABS: BASO # 0.1 10^3/uL (0.0-0.2); BASO % 0.7 % (0.0-1.0); EOS # 0.4 10^3/uL (0.0-0.5); EOS % 4.3 % (0.0-3.0); HEMATOCRIT 34.5 % (42.0-52.0); HEMOGLOBIN 11.1 g/dl (13.5-17.5); LYMPH # 2.3 10^3/uL (1.5-5.0); LYMPH % 23.5 % (24.0-44.0); MEAN CORPUSCULAR HGB CONC 32.2 g/dl (32.0-36.5); MEAN CORPUSCULAR VOLUME 90.1 fl (80.0-96.0); MONO # 0.8 10^3/uL (0.0-0.8); MONO % 7.9 % (2.0-8.0); NEUTROPHILS # 6.1 10^3/uL (1.5-8.5); NEUTROPHILS % 62.9 % (36.0-66.0); PLATELET COUNT, AUTOMATED 336 10^3/uL (150-450); RED BLOOD COUNT 3.83 10^6/uL (4.30-6.10); WHITE BLOOD COUNT 9.7 10^3/uL (4.0-10.0)
[2022-02-23 06:50] LABS: BLOOD UREA NITROGEN 28 MG/DL (9-23); CALCIUM LEVEL 7.4 MG/DL (8.3-10.6); CARBON DIOXIDE LEVEL 31 MMOL/L (20-31); CHLORIDE LEVEL 103 MMOL/L (98-107); CREATININE FOR GFR 0.84 MG/DL (0.70-1.30); GLOMERULAR FILTRATION RATE > 60.0 (>42); GLUCOSE, FASTING 142 MG/DL (74-106); POTASSIUM SERUM 4.5 MMOL/L (3.5-5.1); SODIUM LEVEL 138 MMOL/L (136-145)
[2022-02-23] MEDS: IPRATROPIUM HFA INHALER 12.9 GRAMS (ATROVENT HFA) INH SCH (07:24)
[2022-02-23] MEDS ORDERED: RISATAB3 PO (07:55)
[2022-02-23] MEDS ORDERED: DALV1SOL IV (07:56)
[2022-02-23 08:30] VITALS: BP 108/56
[2022-02-23] MEDS: INSULIN LISPRO (NovoLOG) PER UNIT SC SCH ×4 (09:35→12:57)
[2022-02-23] MEDS: MULTIVITAMINS/MINERALS THERAP 1 TAB PO SCH (10:39)
[2022-02-23] MEDS: FLUoxetine 20MG CAP PO SCH (10:39)
[2022-02-23] MEDS: GABAPENTIN 300 MG CAP PO SCH (10:39)
[2022-02-23] MEDS: ACETAMINOPHEN 650MG ER TAB (TYLENOL ARTHRITIS) PO SCH (10:39)
[2022-02-23 10:41] VITALS: BP 121/70
[2022-02-23] MEDS: METOPROLOL SUCC *XL* 25MG TAB (TopROL *XL*) PO SCH (10:41)
[2022-02-23] MEDS: APIXABAN 5 MG TAB (ELIQUIS) PO SCH (10:41)
[2022-02-23] MEDS: lisinopriL 5 MG TAB PO SCH (10:41)
[2022-02-23] MEDS: CALCIUM/VITAMIN D 500 MG TAB PO SCH (10:42)
[2022-02-23] MEDS: FUROSEMIDE 80 MG TAB PO SCH (10:42)
[2022-02-23] MEDS: LACTOBACILLUS ACIDOPHILUS CAP (BACID) PO SCH (10:44)
[2022-02-23] MEDS: BRIMONIDINE 0.1% OPHTH SOLN 5 ML OU SCH (10:45)
[2022-02-23] MEDS: VANICREAM MOISTURIZING SKIN CREAM 113GM TUBE TOP SCH (10:46)
[2022-02-23] MEDS ORDERED: CLIN-250 PO (11:28)
== END 2022-02-23 15:01 | disposition home or self-care (01) | DRG 638 ==
LOC: M ED 15:57 → M ED INP 20:10 → ENRESERV 22:02 → M MSPAV 02-19 00:36
PROVIDERS: ADMIT Internal Medicine; ATTEND General Practice
PROC: 0H9LXZZ Drainage of Left Lower Leg Skin, External Approach (ICD-10-PCS; principal; 2022-02-19)
DX: E11.628 Type 2 diabetes mellitus with other skin complications (principal); I50.32 Chronic diastolic (congestive) heart failure; L03.116 Cellulitis of left lower limb; I48.20 Chronic atrial fibrillation, unspecified; L02.416 Cutaneous abscess of left lower limb; D68.32 Hemorrhagic disorder due to extrinsic circulating anticoagulants; L08.9 Local infection of the skin and subcutaneous tissue, unspecified; I11.0 Hypertensive heart disease with heart failure; E66.9 Obesity, unspecified; E11.42 Type 2 diabetes mellitus with diabetic polyneuropathy; G47.33 Obstructive sleep apnea (adult) (pediatric); J44.9 Chronic obstructive pulmonary disease, unspecified; N40.0 Benign prostatic hyperplasia without lower urinary tract symptoms; E78.5 Hyperlipidemia, unspecified; Z90.49 Acquired absence of other specified parts of digestive tract; Z87.891 Personal history of nicotine dependence; Z20.822 Contact with and (suspected) exposure to COVID-19; Z79.01 Long term (current) use of anticoagulants; Z79.4 Long term (current) use of insulin; Z79.84 Long term (current) use of oral hypoglycemic drugs; Z79.899 Other long term (current) drug therapy; Z79.2 Long term (current) use of antibiotics; Z88.1 Allergy status to other antibiotic agents; Z88.8 Allergy status to other drugs, medicaments and biological substances; Z91.040 Latex allergy status; S80.12XA Contusion of left lower leg, initial encounter; W22.09XA Striking against other stationary object, initial encounter; Y92.9 Unspecified place or not applicable

== ENCOUNTER → 2022-03-23 | Outpatient (CLI) | payer MEDICARE ==
[~2022-03-23] MED LIST changes: +ALBU8.5H INH; +CLIN-250 PO; +DALV1SOL IV; +FISH100015 PO; +LISI5TAB11 PO; +METO1TAB32 PO; +RISATAB3 PO
== END ==
LOC: M RAD 14:42
PROVIDERS: ATTEND Internal Medicine Pulmonary Disease
DX: Z12.2 Encounter for screening for malignant neoplasm of respiratory organs (principal); Z87.891 Personal history of nicotine dependence; J84.10 Pulmonary fibrosis, unspecified

== ENCOUNTER → 2022-05-04 | Outpatient (REF) | payer MEDICARE ==
[~2022-05-04] MED LIST changes: +LIDO15SO4 SSP; -LIDO2SOL17 SSP
== END ==
LOC: M PLAIMG 12:02
PROVIDERS: ATTEND Student in an Organized Health Care Education/Training Program
DX: M25.522 Pain in left elbow (principal)

== ENCOUNTER → 2022-06-28 | Outpatient (REF) | payer MEDICARE ==
[~2022-06-28] MED LIST changes: +LIDO15SO SSP; -LIDO15SO4 SSP; +SIMV-254 PO; -ZOCO40TA PO
== END ==
LOC: M SFHCPLAZ 15:44
PROVIDERS: ATTEND Internal Medicine Hematology
DX: L03.116 Cellulitis of left lower limb (principal)

== ENCOUNTER → 2022-08-23 | Outpatient (CLI) | payer MEDICARE ==
[2022-08-23 18:04] LABS: BASO # 0.1 10^3/uL (0.0-0.2); BASO % 0.8 % (0.0-1.0); EOS # 0.4 10^3/uL (0.0-0.5); EOS % 3.7 % (0.0-3.0); HEMATOCRIT 48.9 % (42.0-52.0); HEMOGLOBIN 16.2 g/dl (13.5-17.5); LYMPH # 2.9 10^3/uL (1.5-5.0); LYMPH % 24.5 % (24.0-44.0); MEAN CORPUSCULAR HEMOGLOBIN 29.8 pg (27.0-33.0); MEAN CORPUSCULAR HGB CONC 33.1 g/dl (32.0-36.5); MEAN CORPUSCULAR VOLUME 90.1 fl (80.0-96.0); MONO # 0.8 10^3/uL (0.0-0.8); MONO % 6.8 % (2.0-8.0); NEUTROPHILS # 7.5 10^3/uL (1.5-8.5); NEUTROPHILS % 63.7 % (36.0-66.0); PLATELET COUNT, AUTOMATED 245 10^3/uL (150-450); RED BLOOD COUNT 5.43 10^6/uL (4.30-6.10); WHITE BLOOD COUNT 11.8 10^3/uL (4.0-10.0)
[2022-08-23 18:08] LABS: HEMOGLOBIN A1c 7.6 % (4.0-6.0)
[2022-08-23 18:24] LABS: CREATININE, URINE 13.5 MG/DL; MALB URINE SIEMENS < 3.0 MG/L; MAU/CREAT RATIO 22.2 MCG/MG (0.0-30.0)
[2022-08-23 18:25] LABS: ALBUMIN 3.7 G/DL (3.2-5.2); ALKALINE PHOSPHATASE 105 U/L (46-116); ALT/SGPT 25 U/L (7.0-40); AST/SGOT 16 U/L (<34); BILIRUBIN,TOTAL 1.2 MG/DL (0.3-1.2); BLOOD UREA NITROGEN 23 MG/DL (9-23); CALCIUM LEVEL 8.9 MG/DL (8.3-10.6); CARBON DIOXIDE LEVEL 32 MMOL/L (20-31); CHLORIDE LEVEL 102 MMOL/L (98-107); CHOLESTEROL LEVEL 103 MG/DL (<200); CHOLESTEROL RISK RATIO 2.38 (<5); CREATININE FOR GFR 0.96 MG/DL (0.70-1.30); GLOMERULAR FILTRATION RATE > 60.0 (>42); GLUCOSE, FASTING 135 MG/DL (74-106); HDL CHOLESTEROL 43.1 MG/DL (>40); LDL CHOLESTEROL 34.9 MG/DL (<100); NON-HDL-C 59.9 MG/DL; POTASSIUM SERUM 4.5 MMOL/L (3.5-5.1); SODIUM LEVEL 138 MMOL/L (136-145); TOTAL PROTEIN 6.7 G/DL (5.7-8.2); TRIGLYCERIDES LEVEL 125 MG/DL (<150)
[2022-08-23 18:27] LABS: TOTAL 25(OH) VITAMIN D 35.3 NG/ML (20.0-100.0)
== END ==
LOC: M LAB 16:52
PROVIDERS: ATTEND Student in an Organized Health Care Education/Training Program
DX: Z00.00 Encounter for general adult medical examination without abnormal findings (principal); L03.116 Cellulitis of left lower limb; Z79.899 Other long term (current) drug therapy

== ENCOUNTER 2022-09-24 12:39 | Emergency (ER) | payer MEDICARE ==
[~2022-09-24] VITALS: Ht 190.5 cm; Wt 116.7 kg
[2022-09-24] MEDS ORDERED: MORPHINE 4 MG/ML 1ML VIAL IV ONE (13:15)
[2022-09-24] MEDS ORDERED: diazePAM 10MG/2ML SYRINGE IV ONE (13:15)
[2022-09-24 14:54] VITALS: O2SAT 94
[2022-09-24 15:00] VITALS: BP 163/85; TEMP 98
[2022-09-24] MEDS ORDERED: PERC5TAB12 PO (15:13)
== END 2022-09-24 15:51 | disposition home or self-care (01) ==
LOC: M ED 12:39
DX: S43.004A Unspecified dislocation of right shoulder joint, initial encounter (principal); W19.XXXA Unspecified fall, initial encounter; Y92.009 Unspecified place in unspecified non-institutional (private) residence as the place of occurrence of the external cause; I50.9 Heart failure, unspecified; I10 Essential (primary) hypertension; N40.0 Benign prostatic hyperplasia without lower urinary tract symptoms; J44.9 Chronic obstructive pulmonary disease, unspecified; Z98.61 Coronary angioplasty status; Z79.01 Long term (current) use of anticoagulants; Z79.4 Long term (current) use of insulin; Z79.899 Other long term (current) drug therapy; Z88.0 Allergy status to penicillin; Z88.1 Allergy status to other antibiotic agents; Z91.040 Latex allergy status
CPT/HCPCS: 23650; 73020; 73030; 93041; 94760; 96374; 96375; 99285; J3360

== ENCOUNTER 2022-09-29 13:44 | Emergency (ER) | payer MEDICARE ==
[~2022-09-29] VITALS: Ht 190.5 cm; Wt 97.7 kg
[~2022-09-29 13:44] MED LIST changes: +PERC5TAB12 PO
[2022-09-29] MEDS ORDERED: oxyCODONE 5MG TAB PO ONE (16:00)
[2022-09-29 16:26] VITALS: BP 111/55; TEMP 98.8; O2SAT 98
[2022-09-29 16:35] LABS: BASO # 0.1 10^3/uL (0.0-0.2); BASO % 0.7 % (0.0-1.0); EOS # 0.3 10^3/uL (0.0-0.5); EOS % 2.1 % (0.0-3.0); HEMATOCRIT 42.6 % (42.0-52.0); HEMOGLOBIN 14.2 g/dl (13.5-17.5); LYMPH # 2.4 10^3/uL (1.5-5.0); LYMPH % 18.8 % (24.0-44.0); MEAN CORPUSCULAR HEMOGLOBIN 30.2 pg (27.0-33.0); MEAN CORPUSCULAR HGB CONC 33.3 g/dl (32.0-36.5); MEAN CORPUSCULAR VOLUME 90.6 fl (80.0-96.0); MONO % 8.1 % (2.0-8.0); NEUTROPHILS # 8.9 10^3/uL (1.5-8.5); PLATELET COUNT, AUTOMATED 270 10^3/uL (150-450); WHITE BLOOD COUNT 12.6 10^3/uL (4.0-10.0)
[2022-09-29 16:47] LABS: INR 1.05; PROTHROMBIN TIME 13.9 SECONDS (12.5-14.5)
[2022-09-29 16:48] LABS: PARTIAL THROMBOPLASTIN TIME 31.5 SECONDS (24.8-34.2)
[2022-09-29 16:56] LABS: BLOOD UREA NITROGEN 24 MG/DL (9-23); CALCIUM LEVEL 8.7 MG/DL (8.3-10.6); CARBON DIOXIDE LEVEL 31 MMOL/L (20-31); CHLORIDE LEVEL 99 MMOL/L (98-107); CREATININE FOR GFR 0.89 MG/DL (0.70-1.30); GLOMERULAR FILTRATION RATE > 60.0 (>42); GLUCOSE, FASTING 142 MG/DL (74-106); POTASSIUM SERUM 4.1 MMOL/L (3.5-5.1); SODIUM LEVEL 138 MMOL/L (136-145)
[2022-09-29] MEDS ORDERED: PERC5TAB12 PO (16:56)
== END 2022-09-29 17:05 | disposition home or self-care (01) ==
LOC: M ED 13:44
DX: S40.021A Contusion of right upper arm, initial encounter (principal); M25.511 Pain in right shoulder; G89.18 Other acute postprocedural pain; Z79.84 Long term (current) use of oral hypoglycemic drugs; Z79.01 Long term (current) use of anticoagulants; Z79.899 Other long term (current) drug therapy; Z88.0 Allergy status to penicillin; Z88.1 Allergy status to other antibiotic agents; Z91.040 Latex allergy status

== ENCOUNTER → 2022-10-11 | Outpatient (CLI) | payer MEDICARE | LOC: M SOG 14:29 | PROVIDERS: ATTEND Physician Assistant | DX: M25.511 Pain in right shoulder (principal); M85.811 Other specified disorders of bone density and structure, right shoulder; M19.011 Primary osteoarthritis, right shoulder ==

== ENCOUNTER → 2022-11-09 | Outpatient (CLI) | payer MEDICARE | LOC: M RAD 10:10 | PROVIDERS: ATTEND Student in an Organized Health Care Education/Training Program | DX: Z13.6 Encounter for screening for cardiovascular disorders (principal); F17.211 Nicotine dependence, cigarettes, in remission ==

== ENCOUNTER → 2022-11-15 | Outpatient (CLI) | payer MEDICARE | LOC: M PLAIMG 14:59 | PROVIDERS: ATTEND Physician Assistant | DX: S43.014A Anterior dislocation of right humerus, initial encounter (principal); M94.211 Chondromalacia, right shoulder; M25.411 Effusion, right shoulder; M75.101 Unspecified rotator cuff tear or rupture of right shoulder, not specified as traumatic; X58.XXXA Exposure to other specified factors, initial encounter; Y92.9 Unspecified place or not applicable; Y93.9 Activity, unspecified; Y99.9 Unspecified external cause status ==

== ENCOUNTER → 2023-04-05 | Outpatient (CLI) | payer MEDICARE ==
[~2023-04-05] MED LIST changes: +CEFD1CAP9 PO; -CEFD300C41 PO
[2023-04-05 14:21] LABS: HEMOGLOBIN A1c 7.4 % (4.0-6.0)
== END ==
LOC: M PLALAB 11:23
PROVIDERS: ATTEND Student in an Organized Health Care Education/Training Program
DX: E11.40 Type 2 diabetes mellitus with diabetic neuropathy, unspecified (principal)

== ENCOUNTER → 2023-04-10 | Outpatient (CLI) | payer MEDICARE ==
[2023-04-10 16:07] LABS: HEMATOCRIT 46.5 % (42.0-52.0); HEMOGLOBIN 15.3 g/dl (13.5-17.5); MEAN CORPUSCULAR HEMOGLOBIN 30.4 pg (27.0-33.0); MEAN CORPUSCULAR HGB CONC 32.9 g/dl (32.0-36.5); MEAN CORPUSCULAR VOLUME 92.4 fl (80.0-96.0); PLATELET COUNT, AUTOMATED 254 10^3/uL (150-450); RED BLOOD COUNT 5.03 10^6/uL (4.30-6.10); WHITE BLOOD COUNT 13.2 10^3/uL (4.0-10.0)
[2023-04-10 16:17] LABS: ALBUMIN 3.8 G/DL (3.2-5.2); ALKALINE PHOSPHATASE 108 U/L (46-116); ALT/SGPT 23 U/L (7.0-40); AST/SGOT 12 U/L (<34); BILIRUBIN,TOTAL 0.8 MG/DL (0.3-1.2); BLOOD UREA NITROGEN 30 MG/DL (9-23); CALCIUM LEVEL 9.8 MG/DL (8.3-10.6); CARBON DIOXIDE LEVEL 33 MMOL/L (20-31); CHLORIDE LEVEL 101 MMOL/L (98-107); CHOLESTEROL LEVEL 107 MG/DL (<200); CHOLESTEROL RISK RATIO 2.21 (<5); CREATININE FOR GFR 0.94 MG/DL (0.70-1.30); GLOMERULAR FILTRATION RATE > 60.0 (>42); GLUCOSE, FASTING 140 MG/DL (74-106); HDL CHOLESTEROL 48.4 MG/DL (>40); LDL CHOLESTEROL 34.4 MG/DL (<100); NON-HDL-C 58.6 MG/DL; POTASSIUM SERUM 4.1 MMOL/L (3.5-5.1); PSA SCREENING 1.47 NG/ML (< 4.00); SODIUM LEVEL 139 MMOL/L (136-145); THYROID STIMULATING HORMONE 2.513 uIU/ML (0.55-4.78); TOTAL PROTEIN 7.1 G/DL (5.7-8.2); TRIGLYCERIDES LEVEL 121 MG/DL (<150); VITAMIN B12 LEVEL 689 PG/ML (211-911)
[2023-04-10 16:18] LABS: FOLATE > 24.00 NG/ML (>5.4)
== END ==
LOC: M PLALAB 13:06
PROVIDERS: ATTEND Student in an Organized Health Care Education/Training Program
DX: G47.33 Obstructive sleep apnea (adult) (pediatric) (principal); I48.92 Unspecified atrial flutter; E78.5 Hyperlipidemia, unspecified; Z12.5 Encounter for screening for malignant neoplasm of prostate; G62.9 Polyneuropathy, unspecified
CPT/HCPCS: 36415; 80053; 80061; 82607; 82746; 84443; 85027; G0103

== ENCOUNTER → 2023-05-16 | Outpatient (CLI) | payer MEDICARE | LOC: M RAD 14:40 | PROVIDERS: ATTEND Internal Medicine Pulmonary Disease | DX: Z12.2 Encounter for screening for malignant neoplasm of respiratory organs (principal); Z87.891 Personal history of nicotine dependence; J84.10 Pulmonary fibrosis, unspecified; R91.1 Solitary pulmonary nodule; I70.0 Atherosclerosis of aorta; I25.10 Atherosclerotic heart disease of native coronary artery without angina pectoris ==

== ENCOUNTER 2023-08-23 15:56 | Inpatient (IN) | payer MEDICARE ==
[~2023-08-23] VITALS: Ht 190.5 cm; Wt 112.9 kg
[~2023-08-23 15:56] MED LIST changes: +DOXY-440 PO; -DOXY-444 PO; +FLUO-365 PO; -FLUO20CA22 PO; -LIDO15SO SSP; +LIDO15SO8 SSP
[2023-08-23 16:30] LABS: VENOUS BASE EXCESS 1.5 (-2.0-2.0); VENOUS HCO3 27.1 MMOL/L (23.0-27.0); VENOUS O2 SATURATION 88.2 % (60.0-80.0); VENOUS PARTIAL PRESSURE CO2 45.9 mmHg (38.0-50.0); VENOUS PARTIAL PRESSURE O2 53.3 mmHg (30.0-50.0); VENOUS PH 7.389 UNITS (7.330-7.430); VENOUS STANDARD HCO3 25.6 MMOL/L; VENOUS TOTAL CO2 28.5 MMOL/L (24.0-28.0)
[2023-08-23] MEDS: ACETAMINOPHEN 325 MG TAB PO ONE (16:31)
[2023-08-23 16:36] LABS: BASO % 0.2 % (0.0-1.0); EOS # 0.1 10^3/uL (0.0-0.5); EOS % 0.6 % (0.0-3.0); HEMOGLOBIN 14.5 g/dl (13.5-17.5); LYMPH # 1.3 10^3/uL (1.5-5.0); LYMPH % 10.8 % (24.0-44.0); MEAN CORPUSCULAR HEMOGLOBIN 29.8 pg (27.0-33.0); MEAN CORPUSCULAR VOLUME 90.5 fl (80.0-96.0); MONO # 0.9 10^3/uL (0.0-0.8); MONO % 7.6 % (2.0-8.0); NEUTROPHILS # 9.7 10^3/uL (1.5-8.5); NEUTROPHILS % 80.4 % (36.0-66.0); PLATELET COUNT, AUTOMATED 210 10^3/uL (150-450); RED BLOOD COUNT 4.86 10^6/uL (4.30-6.10); WHITE BLOOD COUNT 12.1 10^3/uL (4.0-10.0)
[2023-08-23] MEDS: ALBUTEROL SULFATE 2.5MG/0.5ML INH NEB SOLN INH ONE (17:05)
[2023-08-23] MEDS: IPRATROPIUM 0.5MG/ALBUTEROL 2.5MG INH SOL UD 3ML (DUONEB) NEB ONE (17:05)
[2023-08-23 17:10] LABS: CK-MB VALUE MASS 1.9 NG/ML (<3.6)
[2023-08-23 17:18] LABS: ABG BASE EXCESS 2.5 (-2.0-2.0); ABG HCO3 27.5 MMOL/L (22.0-26.0); ABG O2 SATURATION 92.3 % (95.0-99.0); ABG STANDARD HCO3 26.5 MMOL/L. (22.0-26.0); ABG TOTAL CO2 28.9 MMOL/L (23.0-31.0); ABG pH (ARTERIAL) 7.414 UNITS (7.350-7.450)
[2023-08-23 17:24] LABS: ALBUMIN 2.8 G/DL (3.2-5.2); ALKALINE PHOSPHATASE 99 U/L (46-116); ALT/SGPT 20 U/L (7.0-40); AST/SGOT 17 U/L (<34); BILIRUBIN,DIRECT 0.3 MG/DL (<0.4); BILIRUBIN,TOTAL 0.9 MG/DL (0.3-1.2); BLOOD UREA NITROGEN 24 MG/DL (9-23); CALCIUM LEVEL 8.1 MG/DL (8.3-10.6); CARBON DIOXIDE LEVEL 28 MMOL/L (20-31); CHLORIDE LEVEL 103 MMOL/L (98-107); CREATININE FOR GFR 0.84 MG/DL (0.70-1.30); GLOMERULAR FILTRATION RATE > 60.0 (>42); GLUCOSE, FASTING 220 MG/DL (74-106); POTASSIUM SERUM 4.2 MMOL/L (3.5-5.1); SODIUM LEVEL 139 MMOL/L (136-145); TOTAL PROTEIN 6.3 G/DL (5.7-8.2)
[2023-08-23 17:26] LABS: CPK CREATINE PHOSPHOKINASE 135 U/L (46-171)
[2023-08-23] MEDS: NS 1,000 ML IV ONE (18:09)
[2023-08-23] MEDS: cefTRIAXone SOD 1 GM in D5W MINI-BAG PLUS 50 ML IV ONE (18:09)
[2023-08-23] MEDS ORDERED: GLUCOSE 4 GM CHEW PO PRN (18:10)
[2023-08-23] MEDS ORDERED: GLUCAGON INJ 1MG VIAL SC PRN (18:10)
[2023-08-23] MEDS ORDERED: DEXTROSE 50% 50ML SYRINGE IV PRN (18:10)
[2023-08-23] MEDS: IBUPROFEN 400MG TAB PO ONE (18:40)
[2023-08-23] MEDS ORDERED: GABA-1171 PO ×2 (18:43)
[2023-08-23] MEDS: DOXYCYCLINE HYCLATE 100 MG in D5W MINI-BAG PLUS 100 ML IV ONE (18:52)
[2023-08-23] MEDS ORDERED: LISI2.5T9 PO (18:53)
[2023-08-23] MEDS ORDERED: SIMV40TA20 PO (18:53)
[2023-08-23] MEDS ORDERED: RISATAB3 PO (18:53)
[2023-08-23] MEDS ORDERED: MULT-90 PO (18:53)
[2023-08-23] MEDS ORDERED: HOME MED LIST COMPLETE! XX SCH (19:00)
[2023-08-23] MEDS: LR 1,000 ML IV ONE (19:19)
[2023-08-23] MEDS: methylPREDNISolone 40MG 1ML VIAL IV SCH (19:57)
[2023-08-23] MEDS: IPRATROPIUM 0.5MG/ALBUTEROL 2.5MG INH SOL UD 3ML (DUONEB) NEB SCH (20:08)
[2023-08-23] MEDS: INSULIN LISPRO (NovoLOG) PER UNIT SC SCH (21:00)
[2023-08-23 21:28] VITALS: BP 107/51; TEMP 96.7; O2SAT 92
[2023-08-23] MEDS: LEVEMIR (INSULIN DETEMIR) 1 UNITS/0.01ML SC SCH (21:52)
[2023-08-23] MEDS: APIXABAN 5 MG TAB (ELIQUIS) PO SCH (21:52)
[2023-08-23] MEDS: SIMVASTATIN 40 MG TAB PO SCH (23:42)
[2023-08-23] MEDS: GABAPENTIN 300 MG CAP PO ONE (23:42)
[2023-08-23] MEDS: TAMSULOSIN 0.4 MG CAP PO SCH (23:42)
[2023-08-23 23:44] VITALS: BP 125/56; TEMP 98.2; O2SAT 92
[2023-08-23] MEDS: LATANOPROST 0.005% OPHTH SOLN 2.5 ML OU SCH (23:44)
[2023-08-23] MEDS ORDERED: BRIM0.2S13 OU (23:52)
[2023-08-24] VITALS (17 sets, daily range): BP systolic 116–143; BP diastolic 58–73; TEMP 97.7–98.2; O2SAT 86–100
[2023-08-24] MEDS: IPRATROPIUM 0.5MG/ALBUTEROL 2.5MG INH SOL UD 3ML (DUONEB) NEB SCH (04:11)
[2023-08-24 07:35] LABS: HEMATOCRIT 40.5 % (42.0-52.0); HEMOGLOBIN 13.4 g/dl (13.5-17.5); MEAN CORPUSCULAR HEMOGLOBIN 30.2 pg (27.0-33.0); MEAN CORPUSCULAR HGB CONC 33.1 g/dl (32.0-36.5); MEAN CORPUSCULAR VOLUME 91.2 fl (80.0-96.0); PLATELET COUNT, AUTOMATED 209 10^3/uL (150-450); RED BLOOD COUNT 4.44 10^6/uL (4.30-6.10); WHITE BLOOD COUNT 9.9 10^3/uL (4.0-10.0)
[2023-08-24 08:06] LABS: BLOOD UREA NITROGEN 26 MG/DL (9-23); CALCIUM LEVEL 8.2 MG/DL (8.3-10.6); CARBON DIOXIDE LEVEL 28 MMOL/L (20-31); CHLORIDE LEVEL 107 MMOL/L (98-107); CREATININE FOR GFR 0.78 MG/DL (0.70-1.30); GLOMERULAR FILTRATION RATE > 60.0 (>42); GLUCOSE, FASTING 232 MG/DL (74-106); POTASSIUM SERUM 4.9 MMOL/L (3.5-5.1); SODIUM LEVEL 143 MMOL/L (136-145)
[2023-08-24] MEDS: cefTRIAXone SOD 2 GM in D5W MINI-BAG PLUS 50 ML IV SCH (09:21)
[2023-08-24] MEDS: FLUoxetine 20MG CAP PO SCH (09:21)
[2023-08-24] MEDS: INSULIN LISPRO (NovoLOG) PER UNIT SC SCH (09:21)
[2023-08-24] MEDS: GABAPENTIN 300 MG CAP PO SCH (09:22)
[2023-08-24] MEDS: METOPROLOL SUCC *XL* 25MG TAB (TopROL *XL*) PO SCH (09:23)
[2023-08-24] MEDS: DOXYCYCLINE HYCLATE 100MG TABLET PO SCH (09:23)
[2023-08-24] MEDS: FORMOTEROL FUMARATE 20 MCG/2 ML INHALATION SOLUTION (PERFOROMIST) INH SCH (11:45)
[2023-08-24] MEDS: BUDESONIDE 0.5 MG/2 ML INHALATION SUSPENSION NEB SCH (11:45)
[2023-08-24] MEDS: BRIMONIDINE 0.15% OPHTH SOLN 5 ML OU SCH (14:04)
[2023-08-24] MEDS ORDERED: GABAPENTIN 300 MG CAP PO SCH (21:00)
[2023-08-24] MEDS: ACETAMINOPHEN TAB 650MG DOSE (2X325MG) PO PRN (21:09)
[2023-08-25] VITALS (17 sets, daily range): BP systolic 95–140; BP diastolic 46–84; TEMP 97–98.6; O2SAT 86–100
[2023-08-25] MEDS: IPRATROPIUM 0.5MG/ALBUTEROL 2.5MG INH SOL UD 3ML (DUONEB) NEB SCH (08:00)
[2023-08-25 08:37] LABS: BASO % 0.1 % (0.0-1.0); HEMATOCRIT 40.5 % (42.0-52.0); HEMOGLOBIN 13.1 g/dl (13.5-17.5); LYMPH # 1.5 10^3/uL (1.5-5.0); LYMPH % 11.2 % (24.0-44.0); MEAN CORPUSCULAR HEMOGLOBIN 29.8 pg (27.0-33.0); MEAN CORPUSCULAR HGB CONC 32.3 g/dl (32.0-36.5); MEAN CORPUSCULAR VOLUME 92.3 fl (80.0-96.0); MONO # 0.4 10^3/uL (0.0-0.8); MONO % 3.3 % (2.0-8.0); NEUTROPHILS % 84.9 % (36.0-66.0); PLATELET COUNT, AUTOMATED 223 10^3/uL (150-450); RED BLOOD COUNT 4.39 10^6/uL (4.30-6.10); WHITE BLOOD COUNT 12.9 10^3/uL (4.0-10.0)
[2023-08-25 09:06] LABS: BLOOD UREA NITROGEN 32 MG/DL (9-23); CALCIUM LEVEL 8.2 MG/DL (8.3-10.6); CARBON DIOXIDE LEVEL 30 MMOL/L (20-31); CHLORIDE LEVEL 107 MMOL/L (98-107); CREATININE FOR GFR 0.75 MG/DL (0.70-1.30); GLOMERULAR FILTRATION RATE > 60.0 (>42); GLUCOSE, FASTING 221 MG/DL (74-106); POTASSIUM SERUM 4.8 MMOL/L (3.5-5.1); SODIUM LEVEL 141 MMOL/L (136-145)
[2023-08-25] MEDS: FUROSEMIDE 40 MG TAB PO SCH (10:28)
[2023-08-26 04:00] VITALS: BP 132/78; TEMP 97.9; O2SAT 92
[2023-08-26 06:49] LABS: BASO % 0.1 % (0.0-1.0); HEMATOCRIT 39.6 % (42.0-52.0); HEMOGLOBIN 12.8 g/dl (13.5-17.5); LYMPH # 0.9 10^3/uL (1.5-5.0); MEAN CORPUSCULAR HEMOGLOBIN 29.3 pg (27.0-33.0); MEAN CORPUSCULAR HGB CONC 32.3 g/dl (32.0-36.5); MEAN CORPUSCULAR VOLUME 90.6 fl (80.0-96.0); MONO # 0.4 10^3/uL (0.0-0.8); MONO % 3.6 % (2.0-8.0); NEUTROPHILS % 87.1 % (36.0-66.0); PLATELET COUNT, AUTOMATED 230 10^3/uL (150-450); RED BLOOD COUNT 4.37 10^6/uL (4.30-6.10); WHITE BLOOD COUNT 11.5 10^3/uL (4.0-10.0)
[2023-08-26 07:25] LABS: BLOOD UREA NITROGEN 38 MG/DL (9-23); CALCIUM LEVEL 8.2 MG/DL (8.3-10.6); CARBON DIOXIDE LEVEL 29 MMOL/L (20-31); CHLORIDE LEVEL 104 MMOL/L (98-107); CREATININE FOR GFR 0.76 MG/DL (0.70-1.30); GLOMERULAR FILTRATION RATE > 60.0 (>42); GLUCOSE, FASTING 285 MG/DL (74-106); POTASSIUM SERUM 4.6 MMOL/L (3.5-5.1); SODIUM LEVEL 139 MMOL/L (136-145)
[2023-08-26] MEDS: LEVEMIR (INSULIN DETEMIR) 1 UNITS/0.01ML SC SCH (10:49)
[2023-08-26 12:30] VITALS: BP 127/65; TEMP 98.1; O2SAT 93
[2023-08-26 20:59] VITALS: BP 127/67; TEMP 98.1; O2SAT 94
[2023-08-26] MEDS: methylPREDNISolone 40MG 1ML VIAL IV SCH (21:13)
[2023-08-26] MEDS: DOXYCYCLINE HYCLATE 100MG TABLET PO ONE (21:14)
[2023-08-27 04:17] VITALS: BP 126/68; TEMP 97.5; O2SAT 94
[2023-08-27] MEDS: LevoFLOXacin 750 MG TABLET PO SCH (05:14)
[2023-08-27 08:55] LABS: BASO % 0.4 % (0.0-1.0); EOS % 0.1 % (0.0-3.0); HEMATOCRIT 44.5 % (42.0-52.0); HEMOGLOBIN 14.2 g/dl (13.5-17.5); LYMPH # 1.8 10^3/uL (1.5-5.0); LYMPH % 16.4 % (24.0-44.0); MEAN CORPUSCULAR HEMOGLOBIN 29.3 pg (27.0-33.0); MEAN CORPUSCULAR HGB CONC 31.9 g/dl (32.0-36.5); MEAN CORPUSCULAR VOLUME 91.9 fl (80.0-96.0); MONO # 0.7 10^3/uL (0.0-0.8); MONO % 6.2 % (2.0-8.0); NEUTROPHILS # 8.3 10^3/uL (1.5-8.5); NEUTROPHILS % 74.6 % (36.0-66.0); PLATELET COUNT, AUTOMATED 264 10^3/uL (150-450); RED BLOOD COUNT 4.84 10^6/uL (4.30-6.10); WHITE BLOOD COUNT 11.1 10^3/uL (4.0-10.0)
[2023-08-27 09:18] LABS: BLOOD UREA NITROGEN 34 MG/DL (9-23); CALCIUM LEVEL 8.5 MG/DL (8.3-10.6); CARBON DIOXIDE LEVEL 32 MMOL/L (20-31); CHLORIDE LEVEL 102 MMOL/L (98-107); CREATININE FOR GFR 0.74 MG/DL (0.70-1.30); GLOMERULAR FILTRATION RATE > 60.0 (>42); GLUCOSE, FASTING 214 MG/DL (74-106); POTASSIUM SERUM 4.9 MMOL/L (3.5-5.1); SODIUM LEVEL 138 MMOL/L (136-145)
[2023-08-27] MEDS: FUROSEMIDE 40 MG TAB PO ONE (11:59)
[2023-08-27 20:30] VITALS: BP 128/72; TEMP 97.5; O2SAT 88
[2023-08-27] MEDS: LEVEMIR (INSULIN DETEMIR) 1 UNITS/0.01ML SC SCH (20:49)
[2023-08-28 04:17] VITALS: BP 133/74; TEMP 97.5; O2SAT 93
[2023-08-28 06:28] LABS: HEMATOCRIT 42.4 % (42.0-52.0); HEMOGLOBIN 13.8 g/dl (13.5-17.5); MEAN CORPUSCULAR HEMOGLOBIN 29.6 pg (27.0-33.0); MEAN CORPUSCULAR HGB CONC 32.5 g/dl (32.0-36.5); MEAN CORPUSCULAR VOLUME 90.8 fl (80.0-96.0); PLATELET COUNT, AUTOMATED 250 10^3/uL (150-450); RED BLOOD COUNT 4.67 10^6/uL (4.30-6.10); WHITE BLOOD COUNT 10.5 10^3/uL (4.0-10.0)
[2023-08-28 07:30] LABS: ALBUMIN 2.6 G/DL (3.2-5.2); BLOOD UREA NITROGEN 35 MG/DL (9-23); CALCIUM LEVEL 8.6 MG/DL (8.3-10.6); CARBON DIOXIDE LEVEL 35 MMOL/L (20-31); CHLORIDE LEVEL 102 MMOL/L (98-107); CREATININE FOR GFR 0.91 MG/DL (0.70-1.30); GLOMERULAR FILTRATION RATE > 60.0 (>42); GLUCOSE, FASTING 209 MG/DL (74-106); PHOSPHORUS LEVEL 3.8 MG/DL (2.4-5.1); SODIUM LEVEL 140 MMOL/L (136-145)
[2023-08-28 08:21] VITALS: BP 127/73
[2023-08-28] MEDS: FUROSEMIDE 80 MG TAB PO SCH (08:30)
[2023-08-28 08:34] LABS: ATYPICAL LYMPH 1 % (0-5); LYMPHOCYTES 18 % (16-44); METAMYELOCYTES 1 % (0-0); MONOCYTES 5 % (0-5); MYELOCYTES 1 % (0-0); NEUTROPHILS 72 % (28-66)
[2023-08-28 08:36] LABS: PLATELET ESTIMATE NORMAL (NORMAL)
[2023-08-28 12:56] VITALS: BP 139/76; TEMP 97.2; O2SAT 87
[2023-08-28] MEDS: INSULIN LISPRO (NovoLOG) PER UNIT SC ONE (17:50)
[2023-08-28 19:45] VITALS: O2SAT 92
[2023-08-28 20:17] VITALS: BP 137/77; TEMP 97.9; O2SAT 92
[2023-08-28] MEDS: LEVEMIR (INSULIN DETEMIR) 1 UNITS/0.01ML SC SCH (21:55)
[2023-08-29 04:24] VITALS: BP 113/63; TEMP 97.3; O2SAT 92
[2023-08-29 07:19] LABS: BASO # 0.1 10^3/uL (0.0-0.2); BASO % 0.7 % (0.0-1.0); EOS # 0.2 10^3/uL (0.0-0.5); EOS % 1.5 % (0.0-3.0); HEMATOCRIT 42.4 % (42.0-52.0); HEMOGLOBIN 13.6 g/dl (13.5-17.5); LYMPH # 4.1 10^3/uL (1.5-5.0); LYMPH % 32.2 % (24.0-44.0); MEAN CORPUSCULAR HEMOGLOBIN 28.9 pg (27.0-33.0); MEAN CORPUSCULAR HGB CONC 32.1 g/dl (32.0-36.5); MEAN CORPUSCULAR VOLUME 90.2 fl (80.0-96.0); MONO # 0.9 10^3/uL (0.0-0.8); NEUTROPHILS # 6.7 10^3/uL (1.5-8.5); NEUTROPHILS % 52.2 % (36.0-66.0); PLATELET COUNT, AUTOMATED 263 10^3/uL (150-450); WHITE BLOOD COUNT 12.8 10^3/uL (4.0-10.0)
[2023-08-29 07:46] LABS: ALBUMIN 2.6 G/DL (3.2-5.2); BLOOD UREA NITROGEN 35 MG/DL (9-23); CARBON DIOXIDE LEVEL 36 MMOL/L (20-31); CHLORIDE LEVEL 100 MMOL/L (98-107); GLOMERULAR FILTRATION RATE > 60.0 (>42); GLUCOSE, FASTING 188 MG/DL (74-106); MAGNESIUM LEVEL 1.8 MG/DL (1.8-2.4); PHOSPHORUS LEVEL 3.8 MG/DL (2.4-5.1); POTASSIUM SERUM 4.4 MMOL/L (3.5-5.1); SODIUM LEVEL 139 MMOL/L (136-145)
[2023-08-29 08:00] VITALS: BP 120/73
[2023-08-29] MEDS: predniSONE 20 MG TAB PO SCH (08:01)
[2023-08-29 08:02] VITALS: BP 120/73
[2023-08-29] MEDS ORDERED: LEVO1TAB40 PO (11:43)
[2023-08-29] MEDS ORDERED: PRED10TA2 PO ×2 (11:43→11:55)
[2023-08-29] MEDS ORDERED: BLOOKIT21 XX (11:55)
[2023-08-29] MEDS ORDERED: PRED20TA PO (11:55)
[2023-08-29] MEDS ORDERED: IPRA0.00 INH (11:55)
== END 2023-08-29 13:30 | disposition home health service (06) | DRG 871 ==
LOC: EDBD 15:56 → M ED 15:56 → M ED INP 18:02 → M PCU 21:29 → M MS5PR 08-25 13:25
PROVIDERS: ADMIT Internal Medicine; ATTEND Internal Medicine
DX: A41.9 Sepsis, unspecified organism (principal); J15.1 Pneumonia due to Pseudomonas; J96.01 Acute respiratory failure with hypoxia; J15.4 Pneumonia due to other streptococci; I50.32 Chronic diastolic (congestive) heart failure; J44.1 Chronic obstructive pulmonary disease with (acute) exacerbation; J44.0 Chronic obstructive pulmonary disease with (acute) lower respiratory infection; I11.0 Hypertensive heart disease with heart failure; E11.42 Type 2 diabetes mellitus with diabetic polyneuropathy; R26.89 Other abnormalities of gait and mobility; I48.0 Paroxysmal atrial fibrillation; N40.0 Benign prostatic hyperplasia without lower urinary tract symptoms; G47.33 Obstructive sleep apnea (adult) (pediatric); F32.A Depression, unspecified; E78.5 Hyperlipidemia, unspecified; B34.8 Other viral infections of unspecified site; Z79.01 Long term (current) use of anticoagulants; Z79.84 Long term (current) use of oral hypoglycemic drugs; Z79.4 Long term (current) use of insulin; Z79.899 Other long term (current) drug therapy; Z88.1 Allergy status to other antibiotic agents; Z88.8 Allergy status to other drugs, medicaments and biological substances; Z91.040 Latex allergy status; Z11.52 Encounter for screening for COVID-19

== ENCOUNTER 2023-09-27 14:34 | Inpatient (IN) | payer MEDICARE ==
[~2023-09-27] VITALS: Ht 190.5 cm; Wt 102.9 kg
[~2023-09-27 14:34] MED LIST changes: +BLOOKIT21 XX; +BRIM0.2S13 OU; +GABA-1171 PO; +IPRA0.00 INH; +LEVO1TAB40 PO; +LISI2.5T9 PO; +MULT-90 PO; +SIMV40TA20 PO
[2023-09-27 15:54] LABS: BASO % 0.2 % (0.0-1.0); EOS # 0.1 10^3/uL (0.0-0.5); EOS % 0.9 % (0.0-3.0); HEMATOCRIT 46.8 % (42.0-52.0); HEMOGLOBIN 15.1 g/dl (13.5-17.5); LYMPH # 0.8 10^3/uL (1.5-5.0); LYMPH % 6.3 % (24.0-44.0); MEAN CORPUSCULAR HEMOGLOBIN 29.8 pg (27.0-33.0); MEAN CORPUSCULAR HGB CONC 32.3 g/dl (32.0-36.5); MEAN CORPUSCULAR VOLUME 92.5 fl (80.0-96.0); MONO # 0.7 10^3/uL (0.0-0.8); MONO % 5.7 % (2.0-8.0); NEUTROPHILS # 11.1 10^3/uL (1.5-8.5); NEUTROPHILS % 86.3 % (36.0-66.0); PLATELET COUNT, AUTOMATED 227 10^3/uL (150-450); RED BLOOD COUNT 5.06 10^6/uL (4.30-6.10); WHITE BLOOD COUNT 12.9 10^3/uL (4.0-10.0)
[2023-09-27] MEDS: ACETAMINOPHEN *IV* 1,000 MG in IV 1 EA IV ONE (15:54)
[2023-09-27 16:23] LABS: CPK CREATINE PHOSPHOKINASE 68 U/L (46-171); MB/CK RELATIVE INDEX 2.94 (< OR =4)
[2023-09-27 16:24] LABS: ALBUMIN 3.4 G/DL (3.2-5.2); ALKALINE PHOSPHATASE 96 U/L (46-116); ALT/SGPT 19 U/L (7.0-40); AST/SGOT 11 U/L (<34); BILIRUBIN,DIRECT 0.3 MG/DL (<0.4); BILIRUBIN,TOTAL 0.8 MG/DL (0.3-1.2); BLOOD UREA NITROGEN 25 MG/DL (9-23); CALCIUM LEVEL 8.8 MG/DL (8.3-10.6); CARBON DIOXIDE LEVEL 32 MMOL/L (20-31); CHLORIDE LEVEL 104 MMOL/L (98-107); CREATININE FOR GFR 0.94 MG/DL (0.70-1.30); GLOMERULAR FILTRATION RATE > 60.0 (>42); GLUCOSE, FASTING 192 MG/DL (74-106); POTASSIUM SERUM 4.3 MMOL/L (3.5-5.1); SODIUM LEVEL 144 MMOL/L (136-145); TOTAL PROTEIN 6.2 G/DL (5.7-8.2)
[2023-09-27 16:25] LABS: THYROID STIMULATING HORMONE 1.486 uIU/ML (0.55-4.78)
[2023-09-27 16:26] LABS: FREE T4 1.04 NG/DL (0.89-1.76)
[2023-09-27 16:37] LABS: INR 1.07; PARTIAL THROMBOPLASTIN TIME 26.4 SECONDS (24.8-34.2); PROTHROMBIN TIME 13.6 SECONDS (12.5-14.5)
[2023-09-27] MEDS: ALBUTEROL SULFATE 2.5MG/0.5ML INH NEB SOLN INH ONE (17:02)
[2023-09-27] MEDS: IPRATROPIUM 0.5MG/ALBUTEROL 2.5MG INH SOL UD 3ML (DUONEB) NEB ONE ×2 (17:03→23:30)
[2023-09-27] MEDS ORDERED: ISOVUE-370 76% 100ML VIAL As Ordered ONE (17:13)
[2023-09-27 17:30] LABS: ABG BASE EXCESS 3.9 (-2.0-2.0); ABG HCO3 28.9 MMOL/L (22.0-26.0); ABG O2 SATURATION 97.9 % (95.0-99.0); ABG PARTIAL PRESSURE O2 110.9 mmHg (75.0-100.0); ABG STANDARD HCO3 27.9 MMOL/L. (22.0-26.0); ABG TOTAL CO2 30.3 MMOL/L (23.0-31.0); ABG pH (ARTERIAL) 7.426 UNITS (7.350-7.450)
[2023-09-27] MEDS: LevoFLOXacin IV 750 MG in IV 1 EA IV ONE (17:30)
[2023-09-27] MEDS: NS 500 ML IV ONE (17:44)
[2023-09-27] MEDS ORDERED: methylPREDNISolone 125MG 2ML VIAL IV SCH (18:00)
[2023-09-27] MEDS ORDERED: CEFEPIME HCL 1 GM in D5W MINI-BAG PLUS 50 ML IV SCH (18:10)
[2023-09-27] MEDS: NS 1,000 ML IV ONE (18:19)
[2023-09-27] MEDS ORDERED: MV-M1TAB59 PO (19:38)
[2023-09-27] MEDS ORDERED: FLUT1BLS17 IH (19:38)
[2023-09-27] MEDS ORDERED: TOUJ300I2 SC (19:38)
[2023-09-27] MEDS ORDERED: AVOD0.5C PO (19:40)
[2023-09-27] MEDS ORDERED: DULO1CAP5 PO (19:40)
[2023-09-27] MEDS ORDERED: HOME MED LIST COMPLETE! XX SCH (19:50)
[2023-09-27] MEDS ORDERED: DEXTROSE 50% 50ML SYRINGE IV PRN (20:05)
[2023-09-27] MEDS ORDERED: GLUCOSE 4 GM CHEW PO PRN (20:05)
[2023-09-27] MEDS ORDERED: GLUCAGON INJ 1MG VIAL SC PRN (20:05)
[2023-09-27] MEDS: IPRATROPIUM 0.02% SOLN 0.5MG 2.5ML NEB INH SCH (20:34)
[2023-09-27] MEDS: LEVALBUTEROL 1.25MG 0.5ML CONCENTRATE NEB INH SCH (20:34)
[2023-09-27 22:00] VITALS: BP 98/52; TEMP 98.9; O2SAT 100
[2023-09-27 22:05] VITALS: O2SAT 93
[2023-09-27] MEDS: methylPREDNISolone 40MG 1ML VIAL IV SCH (23:21)
[2023-09-27] MEDS: LEVEMIR (INSULIN DETEMIR) 1 UNITS/0.01ML SC SCH (23:22)
[2023-09-27] MEDS: TAMSULOSIN 0.4 MG CAP PO SCH (23:23)
[2023-09-27] MEDS: APIXABAN 5 MG TAB (ELIQUIS) PO SCH (23:23)
[2023-09-27] MEDS: LACTOBACILLUS ACIDOPHILUS CAP (BACID) PO SCH (23:23)
[2023-09-27] MEDS: CEFEPIME HCL 2 GM in D5W MINI-BAG PLUS 50 ML IV SCH (23:23)
[2023-09-27] MEDS: DULoxetine 30MG CAPSULE (CYMBALTA) PO SCH (23:23)
[2023-09-27] MEDS: guaiFENesin ER TABLET 600 MG TAB PO SCH (23:23)
[2023-09-27] MEDS: INSULIN LISPRO (NovoLOG) PER UNIT SC SCH (23:24)
[2023-09-27] MEDS: SIMVASTATIN 40 MG TAB PO SCH (23:24)
[2023-09-27] MEDS: LATANOPROST 0.005% OPHTH SOLN 2.5 ML OU SCH (23:40)
[2023-09-27] MEDS: NS 1,000 ML IV SCH (23:59)
[2023-09-28 04:00] VITALS: BP 101/50; TEMP 98.1; O2SAT 90
[2023-09-28 06:22] LABS: BASO % 0.2 % (0.0-1.0); HEMATOCRIT 40.1 % (42.0-52.0); LYMPH # 0.8 10^3/uL (1.5-5.0); LYMPH % 4.7 % (24.0-44.0); MEAN CORPUSCULAR HEMOGLOBIN 29.8 pg (27.0-33.0); MEAN CORPUSCULAR HGB CONC 31.9 g/dl (32.0-36.5); MEAN CORPUSCULAR VOLUME 93.3 fl (80.0-96.0); MONO % 5.7 % (2.0-8.0); NEUTROPHILS # 15.3 10^3/uL (1.5-8.5); NEUTROPHILS % 88.8 % (36.0-66.0); PLATELET COUNT, AUTOMATED 200 10^3/uL (150-450); WHITE BLOOD COUNT 17.2 10^3/uL (4.0-10.0)
[2023-09-28 06:26] LABS: HEMOGLOBIN 12.8 g/dl (13.5-17.5)
[2023-09-28 06:41] LABS: BLOOD UREA NITROGEN 26 MG/DL (9-23); CALCIUM LEVEL 7.5 MG/DL (8.3-10.6); CARBON DIOXIDE LEVEL 28 MMOL/L (20-31); CHLORIDE LEVEL 105 MMOL/L (98-107); CREATININE FOR GFR 0.89 MG/DL (0.70-1.30); GLOMERULAR FILTRATION RATE > 60.0 (>42); GLUCOSE, FASTING 210 MG/DL (74-106); POTASSIUM SERUM 4.3 MMOL/L (3.5-5.1); SODIUM LEVEL 137 MMOL/L (136-145)
[2023-09-28] MEDS: INSULIN LISPRO (NovoLOG) PER UNIT SC SCH (08:02)
[2023-09-28] MEDS: DUTASTERIDE 0.5 MG CAP (AVODART) PO SCH (08:02)
[2023-09-28] MEDS: FLUoxetine 20MG CAP PO SCH (08:03)
[2023-09-28] MEDS: MIDODRINE 5 MG TAB PO SCH (08:03)
[2023-09-28] MEDS ORDERED: ACETAMINOPHEN 650MG ER TAB (TYLENOL ARTHRITIS) PO PRN (08:05)
[2023-09-28] MEDS ORDERED: ALBUTEROL 90 MCG/ACT 8GM HFA INHALER INH PRN (08:05)
[2023-09-28] MEDS: GABAPENTIN 300 MG CAP PO SCH (08:57)
[2023-09-28] MEDS: LevoFLOXacin 750 MG TABLET PO SCH (08:57)
[2023-09-28] MEDS ORDERED: GABAPENTIN 300 MG CAP PO SCH (09:00)
[2023-09-28 12:16] VITALS: BP 87/43; TEMP 98.6; O2SAT 93
[2023-09-28 14:15] VITALS: BP 111/58
[2023-09-28] MEDS: NS 1,000 ML IV ONE (14:40)
[2023-09-28] MEDS ORDERED: VANCOMYCIN HCL 1,000 MG, VIAL MATE ADAPTER 1 EACH in D5W 250 ML IV SCH (15:10)
[2023-09-28 15:14] LABS: C REACTIVE PROTEIN QUANTITATIV 22.5 MG/DL (<1.0); CK-MB VALUE MASS 7.4 NG/ML (<3.6)
[2023-09-28] MEDS ORDERED: AZTREONAM 1 GM in D5W MINI-BAG PLUS 50 ML IV SCH (15:15)
[2023-09-28 15:44] LABS: PROCALCITONIN 7.45 ng/ml
[2023-09-28 15:45] LABS: MB/CK RELATIVE INDEX 2.05 (< OR =4)
[2023-09-28] MEDS: BUDESONIDE 180MCG INHALER (PULMICORT FLEXHALER) INH SCH (16:00)
[2023-09-28 20:00] VITALS: BP 113/51; TEMP 98.1; O2SAT 97
[2023-09-29 04:00] VITALS: BP 120/62; TEMP 98.1; O2SAT 100
[2023-09-29 06:54] LABS: BASO % 0.2 % (0.0-1.0); EOS % 0.1 % (0.0-3.0); HEMOGLOBIN 12.3 g/dl (13.5-17.5); LYMPH % 6.1 % (24.0-44.0); MEAN CORPUSCULAR HEMOGLOBIN 29.8 pg (27.0-33.0); MEAN CORPUSCULAR HGB CONC 32.4 g/dl (32.0-36.5); MONO # 0.7 10^3/uL (0.0-0.8); MONO % 4.3 % (2.0-8.0); NEUTROPHILS # 14.5 10^3/uL (1.5-8.5); PLATELET COUNT, AUTOMATED 204 10^3/uL (150-450); RED BLOOD COUNT 4.13 10^6/uL (4.30-6.10); WHITE BLOOD COUNT 16.4 10^3/uL (4.0-10.0)
[2023-09-29 07:20] LABS: BLOOD UREA NITROGEN 30 MG/DL (9-23); CALCIUM LEVEL 7.9 MG/DL (8.3-10.6); CARBON DIOXIDE LEVEL 27 MMOL/L (20-31); CHLORIDE LEVEL 107 MMOL/L (98-107); CREATININE FOR GFR 0.93 MG/DL (0.70-1.30); GLOMERULAR FILTRATION RATE > 60.0 (>42); GLUCOSE, FASTING 285 MG/DL (74-106); POTASSIUM SERUM 4.4 MMOL/L (3.5-5.1); SODIUM LEVEL 139 MMOL/L (136-145)
[2023-09-29 12:00] VITALS: BP 113/52; TEMP 97.7; O2SAT 94
[2023-09-29] MEDS: LEVEMIR (INSULIN DETEMIR) 1 UNITS/0.01ML SC ONE (13:52)
[2023-09-29 16:53] VITALS: BP 129/62
[2023-09-29] MEDS: INSULIN LISPRO (NovoLOG) PER UNIT SC SCH (16:53)
[2023-09-29 19:33] VITALS: BP 122/64; TEMP 98.1; O2SAT 92
[2023-09-30 04:31] VITALS: BP 101/54; TEMP 98.1; O2SAT 88
[2023-09-30 04:40] VITALS: O2SAT 90
[2023-09-30] MEDS: methylPREDNISolone 40MG 1ML VIAL IV SCH (05:02)
[2023-09-30 07:29] LABS: BASO % 0.2 % (0.0-1.0); HEMOGLOBIN 11.9 g/dl (13.5-17.5); LYMPH # 1.1 10^3/uL (1.5-5.0); MEAN CORPUSCULAR HEMOGLOBIN 29.5 pg (27.0-33.0); MEAN CORPUSCULAR HGB CONC 32.2 g/dl (32.0-36.5); MEAN CORPUSCULAR VOLUME 91.6 fl (80.0-96.0); MONO # 0.8 10^3/uL (0.0-0.8); NEUTROPHILS # 10.9 10^3/uL (1.5-8.5); NEUTROPHILS % 83.1 % (36.0-66.0); PLATELET COUNT, AUTOMATED 207 10^3/uL (150-450); RED BLOOD COUNT 4.04 10^6/uL (4.30-6.10); WHITE BLOOD COUNT 13.1 10^3/uL (4.0-10.0)
[2023-09-30 08:01] LABS: BLOOD UREA NITROGEN 32 MG/DL (9-23); CALCIUM LEVEL 7.8 MG/DL (8.3-10.6); CARBON DIOXIDE LEVEL 28 MMOL/L (20-31); CHLORIDE LEVEL 107 MMOL/L (98-107); CREATININE FOR GFR 0.87 MG/DL (0.70-1.30); GLOMERULAR FILTRATION RATE > 60.0 (>42); GLUCOSE, FASTING 269 MG/DL (74-106); POTASSIUM SERUM 4.5 MMOL/L (3.5-5.1); SODIUM LEVEL 140 MMOL/L (136-145)
[2023-09-30] MEDS: INSULIN LISPRO (NovoLOG) PER UNIT SC STA (08:37)
[2023-09-30] MEDS: LEVEMIR (INSULIN DETEMIR) 1 UNITS/0.01ML SC ONE (08:38)
[2023-09-30] MEDS ORDERED: LEVEMIR (INSULIN DETEMIR) 1 UNITS/0.01ML SC SCH (09:00)
[2023-09-30 12:00] VITALS: BP 114/56; TEMP 97.9; O2SAT 97
[2023-09-30] MEDS: INSULIN LISPRO (NovoLOG) PER UNIT SC SCH (12:17)
[2023-09-30 19:44] VITALS: BP 114/57; TEMP 98.1; O2SAT 92
[2023-09-30 22:10] VITALS: TEMP 97.4
[2023-10-01] VITALS (9 sets, daily range): BP systolic 113–119; BP diastolic 56–76; TEMP 97.5–98.1; O2SAT 90–97
[2023-10-01 06:53] LABS: HEMATOCRIT 38.5 % (42.0-52.0); HEMOGLOBIN 12.4 g/dl (13.5-17.5); MEAN CORPUSCULAR HEMOGLOBIN 29.6 pg (27.0-33.0); MEAN CORPUSCULAR HGB CONC 32.2 g/dl (32.0-36.5); MEAN CORPUSCULAR VOLUME 91.9 fl (80.0-96.0); PLATELET COUNT, AUTOMATED 209 10^3/uL (150-450); RED BLOOD COUNT 4.19 10^6/uL (4.30-6.10)
[2023-10-01 07:16] LABS: BLOOD UREA NITROGEN 35 MG/DL (9-23); CALCIUM LEVEL 7.9 MG/DL (8.3-10.6); CARBON DIOXIDE LEVEL 30 MMOL/L (20-31); CHLORIDE LEVEL 105 MMOL/L (98-107); CREATININE FOR GFR 0.91 MG/DL (0.70-1.30); GLOMERULAR FILTRATION RATE > 60.0 (>42); GLUCOSE, FASTING 201 MG/DL (74-106); POTASSIUM SERUM 4.6 MMOL/L (3.5-5.1); SODIUM LEVEL 138 MMOL/L (136-145)
[2023-10-01 07:39] LABS: ATYPICAL LYMPH 1 % (0-5); LYMPHOCYTES 17 % (16-44); MONOCYTES 5 % (0-5); NEUTROPHILS 77 % (28-66); PLATELET ESTIMATE NORMAL (NORMAL); POIKILOCYTOSIS 1+; POLYCHROMASIA 1+
[2023-10-01] MEDS: LEVEMIR (INSULIN DETEMIR) 1 UNITS/0.01ML SC SCH (09:03)
[2023-10-01] MEDS: FUROSEMIDE 100MG/10ML VIAL IV ONE (11:28)
[2023-10-01] MEDS: MIRALAX *UNIT DOSE* 17GM PACKET PO SCH (11:29)
[2023-10-01] MEDS: SENOKOT S TAB PO SCH (11:29)
[2023-10-01] MEDS: INSULIN LISPRO (NovoLOG) PER UNIT SC SCH (11:30)
[2023-10-01] MEDS: METOPROLOL SUCC *XL* 25MG TAB (TopROL *XL*) PO SCH (20:54)
[2023-10-01] MEDS: LEVALBUTEROL 1.25MG 0.5ML CONCENTRATE NEB INH SCH (23:17)
[2023-10-02 00:34] VITALS: TEMP 97.4
[2023-10-02 03:18] VITALS: O2SAT 94
[2023-10-02 04:13] VITALS: BP 114/68; TEMP 97.5; O2SAT 90
[2023-10-02 06:03] LABS: BASO % 0.1 % (0.0-1.0); EOS % 0.3 % (0.0-3.0); HEMATOCRIT 44.2 % (42.0-52.0); HEMOGLOBIN 14.3 g/dl (13.5-17.5); LYMPH # 2.5 10^3/uL (1.5-5.0); LYMPH % 17.9 % (24.0-44.0); MEAN CORPUSCULAR HEMOGLOBIN 29.5 pg (27.0-33.0); MEAN CORPUSCULAR HGB CONC 32.4 g/dl (32.0-36.5); MEAN CORPUSCULAR VOLUME 91.3 fl (80.0-96.0); MONO # 1.2 10^3/uL (0.0-0.8); MONO % 8.3 % (2.0-8.0); NEUTROPHILS # 8.9 10^3/uL (1.5-8.5); NEUTROPHILS % 64.4 % (36.0-66.0); PLATELET COUNT, AUTOMATED 262 10^3/uL (150-450); RED BLOOD COUNT 4.84 10^6/uL (4.30-6.10); WHITE BLOOD COUNT 13.9 10^3/uL (4.0-10.0)
[2023-10-02 06:27] LABS: BLOOD UREA NITROGEN 38 MG/DL (9-23); CALCIUM LEVEL 8.7 MG/DL (8.3-10.6); CARBON DIOXIDE LEVEL 31 MMOL/L (20-31); CHLORIDE LEVEL 104 MMOL/L (98-107); CREATININE FOR GFR 0.94 MG/DL (0.70-1.30); GLOMERULAR FILTRATION RATE > 60.0 (>42); GLUCOSE, FASTING 182 MG/DL (74-106); POTASSIUM SERUM 4.5 MMOL/L (3.5-5.1); SODIUM LEVEL 138 MMOL/L (136-145)
[2023-10-02] MEDS: SYMBICORT 160/4.5MCG INHALER 6GM INH SCH (07:47)
[2023-10-02] MEDS: predniSONE 20 MG TAB PO SCH (08:38)
[2023-10-02] MEDS: FUROSEMIDE 40MG/4ML VIAL IV SCH (08:38)
[2023-10-02] MEDS ORDERED: FUROSEMIDE 100MG/10ML VIAL IV SCH (09:00)
[2023-10-02] MEDS: BISACODYL 10MG SUPP PR ONE (11:30)
[2023-10-02 12:00] VITALS: BP 117/82; TEMP 97.9; O2SAT 90
[2023-10-02] MEDS: MOM 30ML SUSPENSION UDC PO ONE (12:34)
[2023-10-02] MEDS ORDERED: MUCI600T31 PO (15:02)
[2023-10-02] MEDS ORDERED: SENN-52 PO (15:02)
[2023-10-02] MEDS ORDERED: PRED10TA2 PO (15:02)
[2023-10-02] MEDS ORDERED: LEVO1TAB40 PO (15:02)
[2023-10-03 16:52] LABS: URINE STREP PNEUMONIAE ANTIGEN NOT DETECTED (NOT DETECT)
== END 2023-10-02 15:48 | disposition home or self-care (01) | DRG 871 ==
LOC: M ED 14:34 → EDBD 14:34 → M ED INP 18:07 → M MSPAV 21:57
PROVIDERS: ADMIT General Practice; ATTEND Internal Medicine Nephrology
DX: A41.9 Sepsis, unspecified organism (principal); J96.01 Acute respiratory failure with hypoxia; J18.1 Lobar pneumonia, unspecified organism; I50.33 Acute on chronic diastolic (congestive) heart failure; J44.0 Chronic obstructive pulmonary disease with (acute) lower respiratory infection; E78.5 Hyperlipidemia, unspecified; I11.0 Hypertensive heart disease with heart failure; I48.0 Paroxysmal atrial fibrillation; I95.9 Hypotension, unspecified; E11.65 Type 2 diabetes mellitus with hyperglycemia; E11.40 Type 2 diabetes mellitus with diabetic neuropathy, unspecified; N40.0 Benign prostatic hyperplasia without lower urinary tract symptoms; F41.9 Anxiety disorder, unspecified; F32.A Depression, unspecified; H40.9 Unspecified glaucoma; Z91.040 Latex allergy status; Z88.8 Allergy status to other drugs, medicaments and biological substances; Z88.0 Allergy status to penicillin; Z79.899 Other long term (current) drug therapy; Z79.4 Long term (current) use of insulin

== ENCOUNTER → 2023-11-19 | Outpatient (CLI) | payer MEDICARE ==
[~2023-11-19] MED LIST changes: +ANOR1AER PO; +AVOD0.5C PO; +COLA100C5 PO; +DULO1CAP5 PO; +FLUT1BLS17 INH; +GABA-1172 PO; +GABA-1490 PO; -GABA-282 PO; -GABA600T4 PO; +LEVO75TAB PO; +MIRA33506 PO; +MUCI600T31 PO; +MV-M1TAB59 PO; +ROSU20TA86 PO; +SENN-52 PO; +TOUJ300I2 SC
[2023-11-19 16:09] LABS: CREATININE, URINE 192.8 MG/DL; MAU/CREAT RATIO 18.1 MCG/MG (0.0-30.0)
[2023-11-19 16:14] LABS: HEMOGLOBIN A1c 8.4 % (4.0-6.0)
== END ==
LOC: M PLALAB 13:12
PROVIDERS: ATTEND Student in an Organized Health Care Education/Training Program
DX: E11.40 Type 2 diabetes mellitus with diabetic neuropathy, unspecified (principal)

== ENCOUNTER → 2023-11-19 | Outpatient (CLI) | payer MEDICARE ==
[2023-11-19 16:12] LABS: IMMUNOGLOBULIN A 184.6 MG/DL (40-350); IMMUNOGLOBULIN G 729 MG/DL (650-1600)
== END ==
LOC: M PLALAB 13:10
PROVIDERS: ATTEND Internal Medicine Pulmonary Disease
DX: R91.8 Other nonspecific abnormal finding of lung field (principal)

== ENCOUNTER → 2023-11-28 | Outpatient (CLI) | payer MEDICARE ==
[~2023-11-28] MED LIST changes: -ANOR1AER PO; -COLA100C5 PO; +FLUT1BLS17 IH; -FLUT1BLS17 INH; -GABA-1172 PO; +GABA-282 PO; -LEVO75TAB PO; -MIRA33506 PO; -ROSU20TA86 PO
== END ==
LOC: M RAD 15:08
PROVIDERS: ATTEND Internal Medicine Pulmonary Disease
DX: J84.10 Pulmonary fibrosis, unspecified (principal); D73.89 Other diseases of spleen

== ENCOUNTER 2024-01-30 02:02 | Inpatient (IN) | payer MEDICARE ==
[~2024-01-30] VITALS: Ht 190.5 cm; Wt 104.1 kg
[~2024-01-30 02:02] MED LIST changes: -FLUT1BLS17 IH; +FLUT1BLS17 INH; +GABA-1172 PO; -GABA-282 PO
[2024-01-30] MEDS: IPRATROPIUM 0.5MG/ALBUTEROL 2.5MG INH SOL UD 3ML (DUONEB) NEB PRN (02:32)
[2024-01-30] MEDS: ACETAMINOPHEN *IV* 1,000 MG in IV 1 EA IV ONE (02:44)
[2024-01-30 02:47] LABS: VENOUS BASE EXCESS -2.2 (-2.0-2.0); VENOUS HCO3 23.9 MMOL/L (23.0-27.0); VENOUS O2 SATURATION 60.9 % (60.0-80.0); VENOUS PARTIAL PRESSURE CO2 45.8 mmHg (38.0-50.0); VENOUS PARTIAL PRESSURE O2 30.9 mmHg (30.0-50.0); VENOUS PH 7.336 UNITS (7.330-7.430); VENOUS STANDARD HCO3 21.7 MMOL/L; VENOUS TOTAL CO2 25.3 MMOL/L (24.0-28.0)
[2024-01-30 03:03] LABS: ABG BASE EXCESS -2.2 (-2.0-2.0); ABG STANDARD HCO3 22.6 MMOL/L. (22.0-26.0); ABG TOTAL CO2 23.1 MMOL/L (23.0-31.0); ABG pH (ARTERIAL) 7.403 UNITS (7.350-7.450)
[2024-01-30 03:05] LABS: BASO # 0.1 10^3/uL (0.0-0.2); BASO % 0.3 % (0.0-1.0); EOS % 0.1 % (0.0-3.0); HEMATOCRIT 46.5 % (42.0-52.0); HEMOGLOBIN 15.2 g/dl (13.5-17.5); LYMPH # 0.7 10^3/uL (1.5-5.0); LYMPH % 2.9 % (24.0-44.0); MEAN CORPUSCULAR HEMOGLOBIN 29.3 pg (27.0-33.0); MEAN CORPUSCULAR HGB CONC 32.7 g/dl (32.0-36.5); MEAN CORPUSCULAR VOLUME 89.6 fl (80.0-96.0); MONO # 1.3 10^3/uL (0.0-0.8); MONO % 5.3 % (2.0-8.0); NEUTROPHILS # 21.9 10^3/uL (1.5-8.5); NEUTROPHILS % 89.8 % (36.0-66.0); PLATELET COUNT, AUTOMATED 291 10^3/uL (150-450); RED BLOOD COUNT 5.19 10^6/uL (4.30-6.10); WHITE BLOOD COUNT 24.4 10^3/uL (4.0-10.0)
[2024-01-30 03:16] LABS: ALBUMIN 3.2 G/DL (3.2-5.2); ALKALINE PHOSPHATASE 85 U/L (40-129); ALT/SGPT 15 U/L (7.0-40); AST/SGOT 15 U/L (<34); BILIRUBIN,DIRECT 0.5 MG/DL (<0.4); BILIRUBIN,TOTAL 1.3 MG/DL (0.3-1.2); BLOOD UREA NITROGEN 29 MG/DL (9-23); CARBON DIOXIDE LEVEL 25 MMOL/L (20-31); CHLORIDE LEVEL 102 MMOL/L (98-107); GLOMERULAR FILTRATION RATE > 60.0 (>42); GLUCOSE, FASTING 138 MG/DL (74-106); POTASSIUM SERUM 3.8 MMOL/L (3.5-5.1); SODIUM LEVEL 139 MMOL/L (136-145); TOTAL PROTEIN 6.7 G/DL (5.7-8.2)
[2024-01-30] MEDS ORDERED: LevoFLOXacin 750 MG TABLET PO SCH (06:00)
[2024-01-30] MEDS: SYMBICORT 160/4.5MCG INHALER 6GM INH SCH (08:00)
[2024-01-30] MEDS: LevoFLOXacin IV 750 MG in IV 1 EA IV ONE (08:08)
[2024-01-30 08:33] LABS: BASO # 0.1 10^3/uL (0.0-0.2); BASO % 0.3 % (0.0-1.0); LYMPH # 1.9 10^3/uL (1.5-5.0); LYMPH % 6.2 % (24.0-44.0); MONO # 1.9 10^3/uL (0.0-0.8); MONO % 6.1 % (2.0-8.0); NEUTROPHILS % 85.8 % (36.0-66.0)
[2024-01-30 08:40] LABS: WHITE BLOOD COUNT 30.3 10^3/uL (4.0-10.0)
[2024-01-30] MEDS ORDERED: DOXYCYCLINE HYCLATE 100MG TABLET PO SCH (09:00)
[2024-01-30] MEDS ORDERED: DEXTROSE 50% 50ML SYRINGE IV PRN (09:30)
[2024-01-30] MEDS ORDERED: GLUCOSE 4 GM CHEW PO PRN (09:30)
[2024-01-30] MEDS ORDERED: GLUCAGON INJ 1MG VIAL SC PRN (09:30)
[2024-01-30] MEDS ORDERED: ROSU20TA86 PO (10:05)
[2024-01-30] MEDS ORDERED: HOME MED LIST COMPLETE! XX SCH (10:10)
[2024-01-30] MEDS: APIXABAN 5 MG TAB (ELIQUIS) PO SCH (10:53)
[2024-01-30] MEDS: predniSONE 20 MG TAB PO SCH (10:54)
[2024-01-30] MEDS: ACETAMINOPHEN 325 MG TAB PO PRN (10:54)
[2024-01-30 11:02] LABS: INR 1.11; PROTHROMBIN TIME 14.6 SECONDS (12.5-14.5)
[2024-01-30] MEDS: GABAPENTIN 300 MG CAP PO SCH (11:11)
[2024-01-30] MEDS: METOPROLOL SUCC *XL* 25MG TAB (TopROL *XL*) PO SCH (11:12)
[2024-01-30 12:00] VITALS: BP 106/58; TEMP 98.8; O2SAT 89
[2024-01-30] MEDS: INSULIN LISPRO (NovoLOG) PER UNIT SC SCH ×2 (12:31→21:21)
[2024-01-30] MEDS: IPRATROPIUM 0.5MG/ALBUTEROL 2.5MG INH SOL UD 3ML (DUONEB) NEB SCH (14:22)
[2024-01-30] MEDS: LACTOBACILLUS ACIDOPHILUS CAP (BACID) PO SCH (17:17)
[2024-01-30 20:00] VITALS: BP 110/56; TEMP 97.2; O2SAT 92
[2024-01-30] MEDS ORDERED: CEFEPIME HCL 2 GM in DEXTROSE 5% (D5W) ADV/MINI-BAG 50 ML IV SCH (20:00)
[2024-01-30 21:00] VITALS: O2SAT 92
[2024-01-30] MEDS ORDERED: LEVEMIR (INSULIN DETEMIR) 1 UNITS/0.01ML SC SCH (21:00)
[2024-01-30] MEDS: LISINOPRIL *2.5 MG* TAB PO SCH (21:00)
[2024-01-30] MEDS: DUTASTERIDE 0.5 MG CAP (AVODART) PO SCH (21:19)
[2024-01-30] MEDS: FLUoxetine 20MG CAP PO SCH (21:19)
[2024-01-30] MEDS: ROSUVASTATIN 10 MG TAB (CRESTOR) PO SCH (21:19)
[2024-01-30] MEDS: TAMSULOSIN 0.4 MG CAP PO SCH (21:19)
[2024-01-30] MEDS: DULoxetine 30MG CAPSULE (CYMBALTA) PO SCH (21:19)
[2024-01-30] MEDS: LATANOPROST 0.005% OPHTH SOLN 2.5 ML OU SCH (21:19)
[2024-01-30] MEDS: LEVEMIR (INSULIN DETEMIR) 1 UNITS/0.01ML SC SCH (21:20)
[2024-01-31] VITALS (10 sets, daily range): BP systolic 118–130; BP diastolic 53–75; TEMP 97–97.7; O2SAT 86–94
[2024-01-31] MEDS: LevoFLOXacin 750 MG TABLET PO SCH (05:24)
[2024-01-31 06:08] LABS: MEAN CORPUSCULAR HEMOGLOBIN 29.4 pg (27.0-33.0); MEAN CORPUSCULAR HGB CONC 33.3 g/dl (32.0-36.5); MEAN CORPUSCULAR VOLUME 88.2 fl (80.0-96.0); PLATELET COUNT, AUTOMATED 267 10^3/uL (150-450); RED BLOOD COUNT 4.42 10^6/uL (4.30-6.10); WHITE BLOOD COUNT 13.9 10^3/uL (4.0-10.0)
[2024-01-31 06:55] LABS: ALBUMIN 2.5 G/DL (3.2-5.2); ALKALINE PHOSPHATASE 72 U/L (40-129); ALT/SGPT 17 U/L (7.0-40); AST/SGOT 28 U/L (<34); BILIRUBIN,TOTAL 0.8 MG/DL (0.3-1.2); BLOOD UREA NITROGEN 33 MG/DL (9-23); CALCIUM LEVEL 8.9 MG/DL (8.3-10.6); CARBON DIOXIDE LEVEL 30 MMOL/L (20-31); CHLORIDE LEVEL 104 MMOL/L (98-107); CREATININE FOR GFR 0.95 MG/DL (0.70-1.30); GLOMERULAR FILTRATION RATE > 60.0 (>42); GLUCOSE, FASTING 164 MG/DL (74-106); POTASSIUM SERUM 3.7 MMOL/L (3.5-5.1); SODIUM LEVEL 139 MMOL/L (136-145); TOTAL PROTEIN 5.8 G/DL (5.7-8.2)
[2024-02-01] VITALS (10 sets, daily range): BP systolic 109–136; BP diastolic 59–74; TEMP 96.6–97.3; O2SAT 84–94
[2024-02-01 05:53] LABS: HEMOGLOBIN 12.6 g/dl (13.5-17.5); MEAN CORPUSCULAR HEMOGLOBIN 28.6 pg (27.0-33.0); MEAN CORPUSCULAR HGB CONC 32.3 g/dl (32.0-36.5); MEAN CORPUSCULAR VOLUME 88.6 fl (80.0-96.0); PLATELET COUNT, AUTOMATED 253 10^3/uL (150-450); WHITE BLOOD COUNT 9.4 10^3/uL (4.0-10.0)
[2024-02-01 06:11] LABS: ALBUMIN 2.5 G/DL (3.2-5.2); ALKALINE PHOSPHATASE 69 U/L (40-129); ALT/SGPT 26 U/L (7.0-40); AST/SGOT 32 U/L (<34); BILIRUBIN,TOTAL 0.7 MG/DL (0.3-1.2); BLOOD UREA NITROGEN 34 MG/DL (9-23); CALCIUM LEVEL 8.8 MG/DL (8.3-10.6); CARBON DIOXIDE LEVEL 31 MMOL/L (20-31); CHLORIDE LEVEL 107 MMOL/L (98-107); CREATININE FOR GFR 0.84 MG/DL (0.70-1.30); GLOMERULAR FILTRATION RATE > 60.0 (>42); GLUCOSE, FASTING 190 MG/DL (74-106); POTASSIUM SERUM 3.8 MMOL/L (3.5-5.1); SODIUM LEVEL 141 MMOL/L (136-145); TOTAL PROTEIN 5.9 G/DL (5.7-8.2)
[2024-02-01] MEDS: predniSONE 20 MG TAB PO SCH (08:33)
[2024-02-01] MEDS: LEVEMIR (INSULIN DETEMIR) 1 UNITS/0.01ML SC SCH (08:34)
[2024-02-01 16:57] LABS: MAGNESIUM LEVEL 2.1 MG/DL (1.8-2.4); PHOSPHORUS LEVEL 3.5 MG/DL (2.4-5.1)
[2024-02-01] MEDS: MIRALAX *UNIT DOSE* 17GM PACKET PO PRN (18:54)
[2024-02-01] MEDS: DOCUSATE SODIUM 100MG CAPSULE PO SCH (22:25)
[2024-02-01] MEDS: guaiFENesin ER TABLET 600 MG TAB PO SCH (22:26)
[2024-02-01] MEDS: SENOKOT S TAB PO SCH (22:27)
[2024-02-02] VITALS (7 sets, daily range): BP systolic 110–119; BP diastolic 60–66; TEMP 96.5–97.7; O2SAT 87–96
[2024-02-02 00:26] LABS: BLOOD UREA NITROGEN 35 MG/DL (9-23); CALCIUM LEVEL 8.5 MG/DL (8.3-10.6); CARBON DIOXIDE LEVEL 28 MMOL/L (20-31); CHLORIDE LEVEL 104 MMOL/L (98-107); CREATININE FOR GFR 0.91 MG/DL (0.70-1.30); GLOMERULAR FILTRATION RATE > 60.0 (>42); GLUCOSE, FASTING 275 MG/DL (74-106); MAGNESIUM LEVEL 2.1 MG/DL (1.8-2.4); POTASSIUM SERUM 4.3 MMOL/L (3.5-5.1); SODIUM LEVEL 137 MMOL/L (136-145)
[2024-02-02 05:55] LABS: HEMATOCRIT 36.3 % (42.0-52.0); HEMOGLOBIN 12.1 g/dl (13.5-17.5); MEAN CORPUSCULAR HEMOGLOBIN 28.5 pg (27.0-33.0); MEAN CORPUSCULAR HGB CONC 33.3 g/dl (32.0-36.5); MEAN CORPUSCULAR VOLUME 85.6 fl (80.0-96.0); PLATELET COUNT, AUTOMATED 264 10^3/uL (150-450); RED BLOOD COUNT 4.24 10^6/uL (4.30-6.10); WHITE BLOOD COUNT 8.7 10^3/uL (4.0-10.0)
[2024-02-02 06:22] LABS: ALBUMIN 2.5 G/DL (3.2-5.2); ALKALINE PHOSPHATASE 67 U/L (40-129); ALT/SGPT 32 U/L (7.0-40); AST/SGOT 26 U/L (<34); BILIRUBIN,TOTAL 0.6 MG/DL (0.3-1.2); BLOOD UREA NITROGEN 30 MG/DL (9-23); CALCIUM LEVEL 8.4 MG/DL (8.3-10.6); CARBON DIOXIDE LEVEL 32 MMOL/L (20-31); CHLORIDE LEVEL 106 MMOL/L (98-107); CREATININE FOR GFR 0.87 MG/DL (0.70-1.30); GLOMERULAR FILTRATION RATE > 60.0 (>42); GLUCOSE, FASTING 169 MG/DL (74-106); SODIUM LEVEL 141 MMOL/L (136-145); TOTAL PROTEIN 5.7 G/DL (5.7-8.2)
[2024-02-02] MEDS ORDERED: ANOR1AER PO (13:42)
[2024-02-02] MEDS ORDERED: PRED20TA PO (17:15)
[2024-02-02] MEDS ORDERED: COLA100C5 PO (17:15)
[2024-02-02] MEDS ORDERED: MIRA33506 PO (17:15)
[2024-02-02] MEDS ORDERED: SENN-52 PO (17:15)
[2024-02-02] MEDS ORDERED: MUCI600T31 PO (17:15)
[2024-02-03 04:00] VITALS: BP 138/89; TEMP 95.1; TEMP 97.2; O2SAT 96
[2024-02-03 05:55] VITALS: O2SAT 91
[2024-02-03 06:05] LABS: HEMATOCRIT 37.6 % (42.0-52.0); HEMOGLOBIN 12.1 g/dl (13.5-17.5); MEAN CORPUSCULAR HEMOGLOBIN 28.5 pg (27.0-33.0); MEAN CORPUSCULAR HGB CONC 32.2 g/dl (32.0-36.5); MEAN CORPUSCULAR VOLUME 88.5 fl (80.0-96.0); PLATELET COUNT, AUTOMATED 286 10^3/uL (150-450); RED BLOOD COUNT 4.25 10^6/uL (4.30-6.10); WHITE BLOOD COUNT 8.7 10^3/uL (4.0-10.0)
[2024-02-03 06:28] LABS: ALBUMIN 2.6 G/DL (3.2-5.2); ALKALINE PHOSPHATASE 64 U/L (40-129); ALT/SGPT 37 U/L (7.0-40); AST/SGOT 25 U/L (<34); BILIRUBIN,TOTAL 0.4 MG/DL (0.3-1.2); BLOOD UREA NITROGEN 28 MG/DL (9-23); CALCIUM LEVEL 8.5 MG/DL (8.3-10.6); CARBON DIOXIDE LEVEL 30 MMOL/L (20-31); CHLORIDE LEVEL 107 MMOL/L (98-107); CREATININE FOR GFR 0.78 MG/DL (0.70-1.30); GLOMERULAR FILTRATION RATE > 60.0 (>42); GLUCOSE, FASTING 120 MG/DL (74-106); POTASSIUM SERUM 4.2 MMOL/L (3.5-5.1); SODIUM LEVEL 144 MMOL/L (136-145); TOTAL PROTEIN 5.5 G/DL (5.7-8.2)
[2024-02-03] MEDS ORDERED: LEVO75TAB PO (07:29)
[2024-02-03] MEDS: LEVEMIR (INSULIN DETEMIR) 1 UNITS/0.01ML SC SCH (08:28)
[2024-02-03 08:31] VITALS: BP 136/68
[2024-02-03] MEDS ORDERED: TOUJ300I2 SC (09:08)
[2024-02-03 10:57] VITALS: O2SAT 89
[2024-02-03] MEDS ORDERED: ALBU8.5H INH (11:16)
[2024-02-03] MEDS ORDERED: ALBU2.5V10 INH (11:16)
[2024-02-03] MEDS ORDERED: IPRA0.00 INH (11:16)
[2024-02-03 11:35] VITALS: BP 127/65; TEMP 96.8; O2SAT 98
[2024-02-03 13:00] VITALS: BP 149/84; TEMP 96.7; O2SAT 96
== END 2024-02-03 13:57 | disposition home or self-care (01) | DRG 871 ==
LOC: EDBD 02:02 → M ED 02:02 → M ED INP 09:30 → M MSPAV 11:38
PROVIDERS: ADMIT Internal Medicine; ATTEND Internal Medicine
DX: A41.9 Sepsis, unspecified organism (principal); J18.9 Pneumonia, unspecified organism; J96.01 Acute respiratory failure with hypoxia; J14 Pneumonia due to Hemophilus influenzae; J15.1 Pneumonia due to Pseudomonas; I50.32 Chronic diastolic (congestive) heart failure; J44.1 Chronic obstructive pulmonary disease with (acute) exacerbation; J44.0 Chronic obstructive pulmonary disease with (acute) lower respiratory infection; I11.0 Hypertensive heart disease with heart failure; E11.42 Type 2 diabetes mellitus with diabetic polyneuropathy; I48.0 Paroxysmal atrial fibrillation; G47.33 Obstructive sleep apnea (adult) (pediatric); N40.0 Benign prostatic hyperplasia without lower urinary tract symptoms; E78.5 Hyperlipidemia, unspecified; F32.A Depression, unspecified; Z79.01 Long term (current) use of anticoagulants; Z79.4 Long term (current) use of insulin; Z79.84 Long term (current) use of oral hypoglycemic drugs; Z79.899 Other long term (current) drug therapy; Z88.1 Allergy status to other antibiotic agents; Z88.8 Allergy status to other drugs, medicaments and biological substances; Z91.040 Latex allergy status; Z87.891 Personal history of nicotine dependence

== ENCOUNTER → 2024-04-21 | Outpatient (CLI) | payer MEDICARE ==
[~2024-04-21] MED LIST changes: +ANOR1AER PO; +COLA100C5 PO; +LEVO75TAB PO; +MIRA33506 PO; +ROSU20TA86 PO
[2024-04-21 14:27] LABS: BASO # 0.1 10^3/uL (0.0-0.2); EOS # 0.5 10^3/uL (0.0-0.5); EOS % 3.6 % (0.0-3.0); HEMATOCRIT 43.2 % (42.0-52.0); HEMOGLOBIN 13.8 g/dl (13.5-17.5); LYMPH # 3.3 10^3/uL (1.5-5.0); MEAN CORPUSCULAR HEMOGLOBIN 28.7 pg (27.0-33.0); MEAN CORPUSCULAR HGB CONC 31.9 g/dl (32.0-36.5); MEAN CORPUSCULAR VOLUME 89.8 fl (80.0-96.0); MONO % 7.7 % (2.0-8.0); NEUTROPHILS # 7.7 10^3/uL (1.5-8.5); NEUTROPHILS % 61.2 % (36.0-66.0); PLATELET COUNT, AUTOMATED 282 10^3/uL (150-450); RED BLOOD COUNT 4.81 10^6/uL (4.30-6.10); WHITE BLOOD COUNT 12.6 10^3/uL (4.0-10.0)
[2024-04-21 14:29] LABS: PSA SCREENING 1.02 NG/ML (< 4.00)
[2024-04-21 14:31] LABS: ALBUMIN 3.8 G/DL (3.2-5.2); ALKALINE PHOSPHATASE 106 U/L (40-129); ALT/SGPT 26 U/L (7.0-40); AST/SGOT 22 U/L (<34); BILIRUBIN,DIRECT 0.3 MG/DL (<0.4); BILIRUBIN,TOTAL 0.8 MG/DL (0.3-1.2); BLOOD UREA NITROGEN 28 MG/DL (9-23); CALCIUM LEVEL 9.3 MG/DL (8.3-10.6); CARBON DIOXIDE LEVEL 34 MMOL/L (20-31); CHLORIDE LEVEL 102 MMOL/L (98-107); CHOLESTEROL LEVEL 95 MG/DL (<200); CHOLESTEROL RISK RATIO 2.06 (<5); CREATININE FOR GFR 1.08 MG/DL (0.70-1.30); GLOMERULAR FILTRATION RATE > 60.0 (>42); GLUCOSE, FASTING 172 MG/DL (74-106); LDL CHOLESTEROL 25.4 MG/DL (<100); PHOSPHORUS LEVEL 4.7 MG/DL (2.4-5.1); POTASSIUM SERUM 4.3 MMOL/L (3.5-5.1); SODIUM LEVEL 143 MMOL/L (136-145); TRIGLYCERIDES LEVEL 118 MG/DL (<150)
[2024-04-21 15:01] LABS: HEMOGLOBIN A1c 7.7 % (4.0-6.0)
== END ==
LOC: M PLALAB 12:03
PROVIDERS: ATTEND Internal Medicine Hematology
DX: Z00.00 Encounter for general adult medical examination without abnormal findings (principal); J44.9 Chronic obstructive pulmonary disease, unspecified; E11.40 Type 2 diabetes mellitus with diabetic neuropathy, unspecified; Z87.01 Personal history of pneumonia (recurrent); Z09 Encounter for follow-up examination after completed treatment for conditions other than malignant neoplasm; Z12.5 Encounter for screening for malignant neoplasm of prostate
CPT/HCPCS: 36415; 80061; 80069; 80076; 83036; 85025; G0103

== ENCOUNTER → 2024-04-21 | Outpatient (CLI) | payer MEDICARE ==
[2024-04-25 00:38] LABS: IgG Subclass 4 39.3 mg/dL (4.0-86.0)
[2024-04-25 01:06] LABS: STREP PNEUMO TYPE 1 0.2 ug/mL (>1.3); STREP PNEUMO TYPE 12F 0.2 ug/mL (>1.3); STREP PNEUMO TYPE 14 0.3 ug/mL (>1.3); STREP PNEUMO TYPE 18C 1.4 ug/mL (>1.3); STREP PNEUMO TYPE 23F 0.2 ug/mL (>1.3); STREP PNEUMO TYPE 3 0.3 ug/mL (>1.3); STREP PNEUMO TYPE 4 0.2 ug/mL (>1.3); STREP PNEUMO TYPE 5 5.7 ug/mL (>1.3); STREP PNEUMO TYPE 6B 2.9 ug/mL (>1.3); STREP PNEUMO TYPE 7F 1.2 ug/mL (>1.3); STREP PNEUMO TYPE 8 0.9 ug/mL (>1.3); STREP PNEUMO TYPE 9V 1.2 ug/mL (>1.3)
== END ==
LOC: M PLALAB 12:01
PROVIDERS: ATTEND Internal Medicine Infectious Disease
DX: J15.9 Unspecified bacterial pneumonia (principal)

== ENCOUNTER 2024-09-13 16:07 | Inpatient (IN) | payer MEDICARE ==
[~2024-09-13] VITALS: Ht 188 cm; Wt 121.5 kg
[~2024-09-13 16:07] MED LIST changes: -BRIM1OPD OU; +BRIM5DRO25 OU; +FARX1TAB3 PO; -FISH100015 PO; +FISH100019 PO; -FLOM0.4C39 PO; +TAMS-18 PO; +TORS20TA2 PO; +TREL1AER INH
[2024-09-13 17:07] LABS: BASO # 0.1 10^3/uL (0.0-0.2); BASO % 0.7 % (0.0-1.0); EOS # 0.2 10^3/uL (0.0-0.5); EOS % 1.6 % (0.0-3.0); LYMPH # 2.0 10^3/uL (1.5-5.0); LYMPH % 17.1 % (24.0-44.0); MONO # 1.0 10^3/uL (0.0-0.8); MONO % 9.0 % (2.0-8.0); NEUTROPHILS # 8.2 10^3/uL (1.5-8.5); NEUTROPHILS % 70.5 % (36.0-66.0); PLATELET COUNT, AUTOMATED 239 10^3/uL (150-450)
[2024-09-13 17:28] LABS: C REACTIVE PROTEIN QUANTITATIV 6.36 MG/DL (<1.0); CALCIUM LEVEL 8.1 MG/DL (8.3-10.6); CARBON DIOXIDE LEVEL 31.0 MMOL/L (20-31); CHLORIDE LEVEL 101.0 MMOL/L (98-107); CREATININE FOR GFR 0.91 MG/DL (0.70-1.30); GLOMERULAR FILTRATION RATE 89.6 (>42); POTASSIUM SERUM 4.7 MMOL/L (3.5-5.1); SODIUM LEVEL 141.0 MMOL/L (136-145)
[2024-09-13 17:49] LABS: ERYTHROCYTE SEDIMENTATION RATE 38 mm/hr (0-20)
[2024-09-13] MEDS: MOXIFLOXACIN HCL 400 MG in IV 1 EA IV ONE (18:19)
[2024-09-13] MEDS: ACETAMINOPHEN 500 MG TAB PO ONE (18:20)
[2024-09-13] MEDS ORDERED: PERCOCET 5MG/325MG TAB PO ONE (18:35)
[2024-09-13] MEDS: NS (Normal Saline) 0.9% 1,000 ML IV ONE (18:44)
[2024-09-13 18:56] LABS: INR 1.01
[2024-09-13] MEDS ORDERED: MOM 30 ML SUSPENSION UDC PO PRN (19:50)
[2024-09-13] MEDS ORDERED: MAALOX 30 ML SUSP *UDC PO PRN (19:50)
[2024-09-13] MEDS: GABAPENTIN 300 MG CAP PO STA (20:05)
[2024-09-13] MEDS: MORPHINE 2 MG/ML 1 ML VIAL IV ONE (20:06)
[2024-09-13] MEDS ORDERED: GLUCOSE 4 GM CHEW PO PRN (20:20)
[2024-09-13] MEDS ORDERED: MORPHINE 2 MG/ML 1 ML VIAL IV PRN (20:20)
[2024-09-13] MEDS ORDERED: GLUCAGON INJ 1 MG VIAL SC PRN (20:20)
[2024-09-13] MEDS ORDERED: DEXTROSE 50% 50 ML SYRINGE IV PRN (20:20)
[2024-09-13] MEDS ORDERED: ONDANSETRON 4MG 2ML VIAL IV PRN (20:20)
[2024-09-13] MEDS ORDERED: FLUT15.820 NARES (20:35)
[2024-09-13] MEDS ORDERED: TOUJ1.2I SC (20:35)
[2024-09-13] MEDS ORDERED: FLUT1BLS8 IH (20:35)
[2024-09-13] MEDS ORDERED: DULO1CAP6 PO (20:35)
[2024-09-13] MEDS ORDERED: HOME MED LIST COMPLETE! XX SCH (20:40)
[2024-09-13] MEDS: GABAPENTIN 300 MG CAP PO SCH (21:00)
[2024-09-13] MEDS: INSULIN LISPRO (NovoLOG) PER UNIT SC SCH (21:00)
[2024-09-13] MEDS: NS (Normal Saline) 0.9% 1,000 ML IV SCH (21:14)
[2024-09-13] MEDS: LanTUS (INSULIN GLARGINE INJ) 1 UNITS/0.01 ML SC SCH (21:15)
[2024-09-13 21:40] VITALS: BP 121/59; TEMP 97.7; O2SAT 95
[2024-09-13 23:02] VITALS: BP 128/59; TEMP 97.5; O2SAT 96
[2024-09-14 03:01] VITALS: BP 131/61; TEMP 98.6; O2SAT 94
[2024-09-14 06:11] LABS: PLATELET COUNT, AUTOMATED 211 10^3/uL (150-450)
[2024-09-14 06:42] LABS: CALCIUM LEVEL 7.7 MG/DL (8.3-10.6); CARBON DIOXIDE LEVEL 27 MMOL/L (20-31); CHLORIDE LEVEL 107 MMOL/L (98-107); CREATININE FOR GFR 0.79 MG/DL (0.70-1.30); GLOMERULAR FILTRATION RATE > 90.0 (>42); MAGNESIUM LEVEL 1.9 MG/DL (1.8-2.4); POTASSIUM SERUM 4.0 MMOL/L (3.5-5.1); SODIUM LEVEL 143 MMOL/L (136-145)
[2024-09-14 07:22] VITALS: BP 138/73; TEMP 98.3; O2SAT 95
[2024-09-14] MEDS: INSULIN LISPRO (NovoLOG) PER UNIT SC SCH (08:18)
[2024-09-14] MEDS: PERCOCET 5MG/325MG TAB PO PRN (08:19)
[2024-09-14] MEDS: TAMSULOSIN 0.4 MG CAP PO SCH (10:16)
[2024-09-14] MEDS: METOPROLOL SUCC. 25 MG *XL* TAB PO SCH (10:17)
[2024-09-14 11:51] VITALS: BP 117/57; TEMP 98.2; O2SAT 93
[2024-09-14] MEDS ORDERED: GABAPENTIN 300 MG CAP PO SCH (16:00)
[2024-09-14 16:04] VITALS: BP 131/71; TEMP 97.8; O2SAT 94
[2024-09-14] MEDS: MOXIFLOXACIN HCL 400 MG in IV 1 EA IV SCH (17:15)
[2024-09-14] MEDS ORDERED: ALBUTEROL 90 MCG/ACT 8 GM HFA INHALER INH PRN (19:00)
[2024-09-14] MEDS: LanTUS (INSULIN GLARGINE INJ) 1 UNITS/0.01 ML SC SCH (20:39)
[2024-09-14] MEDS: ROSUVASTATIN 10 MG TAB PO SCH (20:39)
[2024-09-14 20:51] VITALS: BP 148/67; TEMP 97; O2SAT 96
[2024-09-14 23:57] VITALS: BP 146/67; TEMP 97.8; O2SAT 95
[2024-09-15] MEDS: PERCOCET 5MG/325MG TAB PO PRN (03:36)
[2024-09-15 03:56] VITALS: BP 174/72; TEMP 97.6; O2SAT 95
[2024-09-15 07:30] VITALS: BP 128/59; TEMP 98.2; O2SAT 91
[2024-09-15 07:33] LABS: PLATELET COUNT, AUTOMATED 210 10^3/uL (150-450)
[2024-09-15 08:01] LABS: CALCIUM LEVEL 7.5 MG/DL (8.3-10.6); CARBON DIOXIDE LEVEL 26 MMOL/L (20-31); CHLORIDE LEVEL 104 MMOL/L (98-107); CREATININE FOR GFR 0.77 MG/DL (0.70-1.30); GLOMERULAR FILTRATION RATE > 90.0 (>42); POTASSIUM SERUM 4.1 MMOL/L (3.5-5.1); SODIUM LEVEL 140 MMOL/L (136-145)
[2024-09-15 08:43] LABS: ANTI-STREPTOLYSIN O QUANT 63.5 IU/ML (<195)
[2024-09-15 08:57] LABS: C REACTIVE PROTEIN QUANTITATIV 13.50 MG/DL (<1.0)
[2024-09-15] MEDS: FUROSEMIDE 40 MG TAB PO SCH (09:07)
[2024-09-15] MEDS: LISINOPRIL 2.5 MG TAB PO SCH (09:08)
[2024-09-15] MEDS: IPRATROPIUM 0.5 MG/ALBUTEROL 2.5 MG INH SOL UD 3 ML NEB PRN (09:17)
[2024-09-15 11:40] VITALS: BP 117/59; TEMP 97.6; O2SAT 94
[2024-09-15] MEDS: CEFTAROLINE FOSAMIL 600 MG in DEXTROSE 5% (D5W) ADV/MINI-BAG 50 ML IV SCH (12:04)
[2024-09-15] MEDS: ACETAMINOPHEN 325 MG TAB PO PRN (12:59)
[2024-09-15 15:58] VITALS: BP 113/59; TEMP 97.6; O2SAT 93
[2024-09-15] MEDS: FUROSEMIDE 40 MG/4 ML VIAL IV SCH (16:53)
[2024-09-15 19:52] VITALS: BP 123/58; TEMP 97.4; O2SAT 94
[2024-09-16 00:15] VITALS: BP 124/56; TEMP 97.2; O2SAT 94
[2024-09-16 03:53] VITALS: BP 124/58; TEMP 97.2; O2SAT 92
[2024-09-16 05:34] LABS: PLATELET COUNT, AUTOMATED 219 10^3/uL (150-450)
[2024-09-16 06:00] LABS: CALCIUM LEVEL 7.7 MG/DL (8.3-10.6); CARBON DIOXIDE LEVEL 26 MMOL/L (20-31); CHLORIDE LEVEL 100 MMOL/L (98-107); CREATININE FOR GFR 0.86 MG/DL (0.70-1.30); GLOMERULAR FILTRATION RATE > 90.0 (>42); POTASSIUM SERUM 3.9 MMOL/L (3.5-5.1); SODIUM LEVEL 138 MMOL/L (136-145)
[2024-09-16 06:15] LABS: C REACTIVE PROTEIN QUANTITATIV 15.35 MG/DL (<1.0)
[2024-09-16 07:47] VITALS: BP 129/60; TEMP 97.4; O2SAT 88
[2024-09-16] MEDS: MORPHINE 2 MG/ML 1 ML VIAL IV PRN (10:12)
[2024-09-16 15:26] VITALS: BP 101/59; TEMP 97.6; O2SAT 94
[2024-09-16 19:44] VITALS: BP 107/55; TEMP 98.3; O2SAT 93
[2024-09-16] MEDS: DOCUSATE SODIUM 100 MG CAPSULE PO SCH (21:03)
[2024-09-16] MEDS: LanTUS (INSULIN GLARGINE INJ) 1 UNITS/0.01 ML SC SCH (21:03)
[2024-09-16 23:43] VITALS: BP 166/75; TEMP 98.1; O2SAT 94
[2024-09-17 00:20] VITALS: BP 131/64
[2024-09-17 03:41] VITALS: BP 109/54; TEMP 98.5; O2SAT 93
[2024-09-17 07:01] LABS: BASO # 0.1 10^3/uL (0.0-0.2); BASO % 0.6 % (0.0-1.0); EOS # 0.4 10^3/uL (0.0-0.5); EOS % 4.4 % (0.0-3.0); LYMPH # 1.7 10^3/uL (1.5-5.0); LYMPH % 19.3 % (24.0-44.0); MONO # 1.1 10^3/uL (0.0-0.8); MONO % 12.4 % (2.0-8.0); NEUTROPHILS # 5.5 10^3/uL (1.5-8.5); NEUTROPHILS % 63.0 % (36.0-66.0); PLATELET COUNT, AUTOMATED 242 10^3/uL (150-450)
[2024-09-17 07:30] LABS: CALCIUM LEVEL 8.0 MG/DL (8.3-10.6); CARBON DIOXIDE LEVEL 29 MMOL/L (20-31); CHLORIDE LEVEL 100 MMOL/L (98-107); CREATININE FOR GFR 0.90 MG/DL (0.70-1.30); GLOMERULAR FILTRATION RATE > 90.0 (>42); POTASSIUM SERUM 4.2 MMOL/L (3.5-5.1); SODIUM LEVEL 141 MMOL/L (136-145)
[2024-09-17 07:38] LABS: C REACTIVE PROTEIN QUANTITATIV 15.08 MG/DL (<1.0)
[2024-09-17 07:41] VITALS: BP 111/59; TEMP 97.1; O2SAT 97
[2024-09-17 08:32] VITALS: BP 111/59
[2024-09-17] MEDS: MIRALAX *UNIT DOSE* 17 GM PACKET PO SCH (08:33)
[2024-09-17] MEDS ORDERED: OXYC-517 PO (11:32)
[2024-09-17] MEDS ORDERED: MIRA3350 PO (11:32)
[2024-09-17] MEDS ORDERED: BACI500O8 TOP (11:32)
[2024-09-17] MEDS ORDERED: DOXY100C3 PO (11:32)
[2024-09-17] MEDS ORDERED: COLA100C5 PO (11:32)
[2024-09-17] MEDS ORDERED: CEFD300CAP PO (11:32)
[2024-09-17 11:33] VITALS: BP 128/57; TEMP 97.5; O2SAT 92
[2024-09-17] MEDS: ENOXAPARIN 40 MG/0.4 ML SYRINGE (J1650 PER 10MG) SC SCH (11:42)
[2024-09-17 15:33] VITALS: BP 116/54; TEMP 98.7; O2SAT 95
[2024-09-18] MEDS ORDERED: FUROSEMIDE 80 MG TAB PO SCH (09:00)
== END 2024-09-17 17:05 | disposition home or self-care (01) | DRG 605 ==
LOC: M ED 16:07 → M ED INP 19:48 → M PCU 21:40
PROVIDERS: ADMIT Student in an Organized Health Care Education/Training Program; ATTEND Student in an Organized Health Care Education/Training Program
DX: S80.11XA Contusion of right lower leg, initial encounter (principal); I50.32 Chronic diastolic (congestive) heart failure; L03.115 Cellulitis of right lower limb; I48.91 Unspecified atrial fibrillation; E11.42 Type 2 diabetes mellitus with diabetic polyneuropathy; J44.9 Chronic obstructive pulmonary disease, unspecified; G47.33 Obstructive sleep apnea (adult) (pediatric); E78.5 Hyperlipidemia, unspecified; N40.0 Benign prostatic hyperplasia without lower urinary tract symptoms; G62.9 Polyneuropathy, unspecified; I11.0 Hypertensive heart disease with heart failure; Z79.01 Long term (current) use of anticoagulants; Z79.4 Long term (current) use of insulin; Z79.84 Long term (current) use of oral hypoglycemic drugs; Z79.899 Other long term (current) drug therapy; Z88.1 Allergy status to other antibiotic agents; Z88.8 Allergy status to other drugs, medicaments and biological substances; Z91.040 Latex allergy status; Z88.0 Allergy status to penicillin; W13.8XXA Fall from, out of or through other building or structure, initial encounter; Y92.009 Unspecified place in unspecified non-institutional (private) residence as the place of occurrence of the external cause

== ENCOUNTER → 2024-10-02 | Outpatient (CLI) | payer MEDICARE ==
[~2024-10-02] MED LIST changes: +BACI500O8 TOP; +DOXY100C3 PO; +DULO1CAP6 PO; +FLUT15.820 NARES; +FLUT1BLS8 IH; +MIRA3350 PO; +OXYC-517 PO
[2024-10-02 13:20] LABS: CALCIUM LEVEL 8.5 MG/DL (8.3-10.6); CARBON DIOXIDE LEVEL 33.0 MMOL/L (20-31); CHLORIDE LEVEL 100.0 MMOL/L (98-107); CREATININE FOR GFR 0.97 MG/DL (0.70-1.30); GLOMERULAR FILTRATION RATE 82.9 (>42); POTASSIUM SERUM 4.4 MMOL/L (3.5-5.1); SODIUM LEVEL 142.0 MMOL/L (136-145)
== END ==
LOC: M PLALAB 11:13
PROVIDERS: ATTEND Ophthalmology
DX: D23.10 Other benign neoplasm of skin of unspecified eyelid, including canthus (principal)

== ENCOUNTER → 2024-11-24 | Outpatient (CLI) | payer MEDICARE ==
[2024-11-24 16:04] LABS: CREATININE, URINE 83.9 MG/DL; MALB URINE SIEMENS 74.0 MG/L; MAU/CREAT RATIO 88.2 MCG/MG (0.0-30.0)
[2024-11-24 16:20] LABS: ALT/SGPT 26.0 U/L (7.0-40); AST/SGOT 24.0 U/L (<34); CALCIUM LEVEL 9.9 MG/DL (8.3-10.6); CARBON DIOXIDE LEVEL 29.0 MMOL/L (20-31); CHLORIDE LEVEL 102.0 MMOL/L (98-107); CHOLESTEROL LEVEL 87.0 MG/DL (<200); CHOLESTEROL RISK RATIO 2.05 (<5); CREATININE FOR GFR 0.94 MG/DL (0.70-1.30); GLOMERULAR FILTRATION RATE 86.1 (>42); LDL CHOLESTEROL 6.3 MG/DL (<100); NON-HDL-C 44.7 MG/DL; POTASSIUM SERUM 4.2 MMOL/L (3.5-5.1); SODIUM LEVEL 142.0 MMOL/L (136-145); TRIGLYCERIDES LEVEL 192.0 MG/DL (<150)
[2024-11-24 17:20] LABS: ESTIMATED AVERAGE GLUCOSE 166.0 MG/DL (60-110)
== END ==
LOC: M PLALAB 13:48
PROVIDERS: ATTEND Student in an Organized Health Care Education/Training Program
DX: E11.40 Type 2 diabetes mellitus with diabetic neuropathy, unspecified (principal)